=== PATIENT | female | born 1960 | race Two or more races ===

== ENCOUNTER 2019-09-25 11:41 | Emergency (ER) | payer OTHER, MEDICAID ==
[~2019-09-25] VITALS: Ht 162.6 cm; Wt 94.3 kg
[~2019-09-25 11:41] MED LIST: DULO30CA2 PO; FURO1TAB33 PO; HYDR50TA69 PO; LORA-622 PO; PREG150C PO; SIMV-8 PO
[2019-09-25 11:50] VITALS: BP 98/44
== END 2019-09-25 13:12 | disposition home or self-care (01) ==
LOC: ER 11:41
DX: S46.912A Strain of unspecified muscle, fascia and tendon at shoulder and upper arm level, left arm, initial encounter (principal); M19.012 Primary osteoarthritis, left shoulder; E11.9 Type 2 diabetes mellitus without complications; J44.9 Chronic obstructive pulmonary disease, unspecified; E78.5 Hyperlipidemia, unspecified; F17.210 Nicotine dependence, cigarettes, uncomplicated; Z79.899 Other long term (current) drug therapy; W01.0XXA Fall on same level from slipping, tripping and stumbling without subsequent striking against object, initial encounter; Y93.89 Activity, other specified; Y92.89 Other specified places as the place of occurrence of the external cause; Y99.8 Other external cause status
CPT/HCPCS: 73060; 73080

== ENCOUNTER 2022-10-01 10:26 | Emergency (ER) | payer OTHER, MEDICAID ==
[~2022-10-01] VITALS: Ht 160 cm; Wt 109.9 kg
[2022-10-01] MEDS ORDERED: SODIUM CHLORIDE 0.9% 1,000 ML IVB ONE (10:30)
[2022-10-01 11:04] LABS: Basophils # (auto) 0 10 ^3/uL (0-0.2); Basophils % (auto) 0.5 % (0.0-2.0); Eosinophils # (auto) 0.1 10 ^3/uL (0-0.8); Eosinophils % (auto) 1.4 % (0.0-7.0); Hematocrit 39.4 % (36.0-46.0); Hemoglobin 13.3 g/dL (12.2-16.2); Lymphocytes # (auto) 2.5 10 ^3/uL (0.4-5.4); Lymphocytes % (auto) 42.2 % (10.0-50.0); Mean Corpuscular Hemoglobin 32.5 pg (28.0-32.0); Mean Corpuscular Hgb Conc. 33.8 g/dL (32.0-36.0); Monocytes # (auto) 0.5 10 ^3/uL (0-1.3); Neutrophils # (auto) 2.7 10 ^3/uL (1.6-8.6); Neutrophils % (auto) 46.9 % (37.0-80.0); Nucleated Red Blood Cells % 0.1 %; Red Blood Cells 4.11 10^6/uL (4.0-5.20); Red Cell Distribution Width 14.8 % (11.8-14.3); White Blood Cell 5.8 10^3/uL (4.4-10.8)
[2022-10-01 13:11] LABS: Albumin 3.7 g/dL (3.4-5.0); Calcium 8.4 mg/dL (8.5-10.1); Magnesium 2.2 mg/dL (1.6-2.6); Potassium 3.5 mmol/L (3.5-5.1)
[2022-10-01 13:13] LABS: BUN/Creatinine Ratio 20.4 (10.0-20.0); Bilirubin, Total 0.3 mg/dL (0.2-1.0); Total Protein 6.8 g/dL (6.4-8.2)
[2022-10-01 14:03] LABS: Urine Bacteria NONE SEEN /hpf (None Seen); Urine Blood 1+ /uL (Negative); Urine Specific Gravity 1.007 (1.001-1.035); Urine WBC 5 /hpf (0 - 5)
[2022-10-01 14:31] VITALS: BP 127/76
[2022-10-01] MEDS ORDERED: CEPH-510 PO (15:07)
[2022-10-01] MEDS ORDERED: cefTRIAXone 1GM/50ML D5W 50 ML IV ONE (15:15)
== END 2022-10-01 15:59 | disposition home or self-care (01) ==
LOC: ER 10:26 → EDBD 10:26 → ER 15:59
DX: J01.00 Acute maxillary sinusitis, unspecified (principal); N39.0 Urinary tract infection, site not specified; F17.210 Nicotine dependence, cigarettes, uncomplicated; J44.9 Chronic obstructive pulmonary disease, unspecified; E11.9 Type 2 diabetes mellitus without complications; E78.5 Hyperlipidemia, unspecified; Z98.51 Tubal ligation status
CPT/HCPCS: 36415; 70450; 71045; 80053; 81001; 83605; 83735; 85025; 85379; 87040; 93005; 96365; 99285; J0696; J7030

== ENCOUNTER 2024-04-04 19:31 | Inpatient (IN) | payer OTHER, MEDICAID ==
[~2024-04-04] VITALS: Ht 160 cm; Wt 103.6 kg
[~2024-04-04 19:31] MED LIST changes: +CEPH-510 PO; -SIMV-8 PO; +SIMV20TA20 PO
--- NOTE | 2024-04-04 19:52 | ED.PDOC ---
SOB-HPI HPI Comments HPI: Poor Historian. 63 y.o female presents to the ED via EMS for a chief complaint of SOB that started 3 days ago. Patient reports using 2.5-3 liter of oxygen at home and was prescribed Z pack with today being her third day on medication but has no respiratory relief. Patient is on oxygen due to hx of COPD. EMS reports on scene, patient was saturating at 65-70% on room air, had been using her oxygen but during assessment, was not wearing it. Patient was given a breathing treatment, increasing SPO2 to 96-97% but will de-sat shortly after, was given another treatment and placed on 8 liters of oxygen, maintaining 100%. EMS mentions when taking patient off oxygen, patient drops in saturation but on oxygen is above the 90's. Initial blood pressure on scene: 110/54 with SPO2 65% RA and in route s/p breathing treatment blood pressure read 132/82 with SPO2 of 96%., Patient denies any allergies Vitals here. BP: 135/82 HR: 109 Temp: 98.5 F SpO2: 99% on 8 liters RR: 24 Past medical history: COPD with 2.5-3 liters of oxygen at home [place], neuropathy, sciatica arthritis, chronic back pain, CKD stage 3, and hyperlipidemia Past surgical history: Gastric sleeve and left oophorectomy. REVIEW OF SYSTEMS: CONSTITUTIONAL: Denies acute: fever, diaphoresis, chills, HEAD: Denies acute: headache, photophobia Eyes: Denies acute: Double vision, vision loss, eye pain, eye discharge. EARS: Denies acute: tinnitus, hearing loss, ear discharge, ear pain, THROAT: Denies acute: sore throat, swelling, difficulty swallowing , pain with swallowing, change in voice. NECK: Denies acute: neck pain, neck swelling, stiff neck. HEART: Denies acute : chest pain, palpitations, LUNGS: Denies acute: wheezing, cough, hemoptysis ABDOMEN: Denies acute: abdominal pain, Nausea, Vomiting, diarrhea, melena , hematemesis, hematochezia SKIN: Denies acute: rash, redness, lesions, itchiness. EXTREMITIES: Denies acute: calf pain, numbness, tingling, weakness, denies pain in extremity. Denies acute: Low back pain. Neuro: Denies acute: focal neurological deficit, motor or sensory focal neurological deficit, tremors, seizure like activity, confusion, dizziness, change in mental status, loss of bowel or bladder function, cauda equina like symptoms. : Denies acute: dysuria, hematuria, flank pain, increase in urinary frequency. PSYCH: Denies acute: hallucination, suicidal ideation, homicidal ideation. FEMALE: Denies acute: abnormal vaginal bleeding, foul odor, unusual discharge. PHYSICAL EXAM: General: mild acute distress, awake and alert. Head: normocephalic, atraumatic. Neck: supple, trachea is midline, no swelling. Throat: Normal phonation. Eyes:, no erythema, no purulent discharge, no proptosis, no icterus. Heart: regular rate, regular rhythm, no significant murmur appreciated. Lungs: no apparent respiratory distress, Able to speak in full sentences. Right-sided wheezing, no rhonchi, no crackles. No stridors Abdomen: non tender to palpation, non distended, soft, no guarding, no rebound, + bowel sounds. Obese. Neuro: Awake, Alert, oriented to name, self, situation, follows commands GCS=15. Speech is normal. Skin: no petechia, no purpura, no cyanosis, non-pale, not jaundice. Lower extremities: --no - Pitting edema no deformity, no focal swelling, no calf TTP. Makes eye contact. moves all four extremities. Face: no apparent facial droop. 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 Was a procedure done?: No Differential Dx Differential Diagnosis: Asthma, Bronchitis, COPD, Respiratory Distress, URI, Other (DDx include ACS, unstable angina, anxiety, PE, pneumothroax, neoplasm, cardiac ischemia, COPD, asthma, CHF, pleural effusion, tobacco abuse, pneumonia, hypoxia, hypercapnia, anemia., infection/sepsis., pulmonary edema. Asthma, Cardiac tamponade, infection.) X-Ray, Labs, Meds, VS Vital Signs Date Time Temp Pulse Resp B/P (MAP) Pulse Ox O2 Delivery O2 Flow Rate FiO2 04/04/24 19:44 94 04/04/24 19:35 98.5 109 26 135/82 (99) 99 04/04/24 19:35 26 99 Simple Mask* 8 60 Lab Test 04/04/24 20:53 04/04/24 20:00 04/04/24 02:00 Range/Units Troponin I High Sensitivity 19 20 </=34 ng/L White Blood Count 5.7 4.4-10.8 10^3/uL Red Blood Count 4.14 4.0-5.20 10^6/uL Hemoglobin 13.3 12.2-16.2 g/dL Hematocrit 40.0 36.0-46.0 % Mean Corpuscular Volume 96.7 80.0-100.0 fL Mean Corpuscular Hemoglobin 32.1 H 28.0-32.0 pg Mean Corpuscular Hemoglobin Concent 33.2 32.0-36.0 g/dL Red Cell Distribution Width 16.3 H 11.8-14.3 % Platelet Count 149 140-450 10^3/uL Mean Platelet Volume 7.6 6.9-10.8 fL Neutrophils (%) (Auto) 75.6 37.0-80.0 % Lymphocytes (%) (Auto) 16.8 10.0-50.0 % Monocytes (%) (Auto) 7.0 0.0-12.0 % Eosinophils (%) (Auto) 0.3 0.0-7.0 % Basophils (%) (Auto) 0.3 0.0-2.0 % Neutrophils # (Auto) 4.3 1.6-8.6 10 ^3/uL Lymphocytes # (Auto) 1.0 0.4-5.4 10 ^3/uL Monocytes # (Auto) 0.4 0-1.3 10 ^3/uL Eosinophils # (Auto) 0 0-0.8 10 ^3/uL Basophils # (Auto) 0 0-0.2 10 ^3/uL Nucleated Red Blood Cells 0.3 % Sodium Level 141 136-145 mmol/L Potassium Level 3.6 3.5-5.1 mmol/L Chloride Level 107 98-107 mmol/L Carbon Dioxide Level 28 20-31 mmol/L Anion Gap 6 5-15 Blood Urea Nitrogen 16 9-23 mg/dL Creatinine 0.99 0.550-1.02 mg/dL Glomerular Filtration Rate Calc 64 >90 mL/min BUN/Creatinine Ratio 16.2 10.0-20.0 Serum Glucose 122 H 74-106 mg/dL Lactic Acid Level 2.7 *H 0.4-2.0 mmol/L Calcium Level 9.6 8.7-10.4 mg/dL Magnesium Level 2.0 1.6-2.6 mg/dL Total Bilirubin 0.3 0.2-1.0 mg/dL Aspartate Amino Transferase (AST) 45 H 13-40 U/L Alanine Aminotransferase (ALT) 30 7-40 U/L Alkaline Phosphatase 103 46-116 U/L Total Protein 7.1 5.7-8.2 g/dL Albumin 4.6 3.2-4.8 g/dL B-Type Natriuretic Peptide 79.41 0-100 pg/mL Current Medications Medications (Trade) Dose Ordered Sig/Davey Route Start Time Stop Time Status Last Admin Methylprednisolone Sodium Succinate (Solu Medrol) 125 mg ONCE ONCE IV 04/04/24 19:45 04/04/24 19:46 DC 04/04/24 21:29 Time of 1ST Reevaluation: 19:42 Reevaluation 1ST: Unchanged Patient Education/Counseling: Diagnosis, Treatment Family Education/Counseling: No Family Present Comments Patient presented with the above HPI.--hypoxemia/dyspnea---workup was initiated. patient was found with the above mentioned diagnosis. Patient was given: DuoNeb treatment, Solu-Medrol, Decadron, supplemental oxygen Patient ED course and VS have been stabilized. Patient has been reassessed in the ED and remained in a stable condition. Pertinent incidental findings were discussed with the patient and/or family. Patient/family voices understanding and is agreeable with plan. Patient has been observed in the ED adequate length of time to insure improvement/stability. patient was admitted to the medicine team for further evaluation and treatment of their presentation. All the reports of any imaging studies that were ordered by myself were reviewed by myself. Departure 1 Departure Time of Disposition: 19:59 Impression: Primary Impression: COPD with exacerbation Additional Impressions: Hypoxemia Dyspnea Tobacco abuse Disposition: ADMITTED INPATIENT Admit to: Tele Condition: Guarded Discharged With: Self Critical Care Note Critical Care Time?: Yes (35 min-critical care time only) I personally scribed for RAYO NAYAK DO ([email or web address]) on 04/04/24 at 19:52. Electronically submitted by Dariana Castro ([facility]). I personally scribed for RAYO NAYAK DO ([email or web address]) on 04/04/24 at 20:03. Electronically submitted by Dariana Castro ([facility]). RAYO NAYAK DO Apr 04, 2024 19:52
[2024-04-04 20:17] LABS: Basophils # (auto) 0 10 ^3/uL (0-0.2); Basophils % (auto) 0.3 % (0.0-2.0); Eosinophils # (auto) 0 10 ^3/uL (0-0.8); Eosinophils % (auto) 0.3 % (0.0-7.0); Hemoglobin 13.3 g/dL (12.2-16.2); Lymphocytes % (auto) 16.8 % (10.0-50.0); Mean Corpuscular Hemoglobin 32.1 pg (28.0-32.0); Mean Corpuscular Hgb Conc. 33.2 g/dL (32.0-36.0); Mean Corpuscular Volume 96.7 fL (80.0-100.0); Monocytes # (auto) 0.4 10 ^3/uL (0-1.3); Neutrophils # (auto) 4.3 10 ^3/uL (1.6-8.6); Neutrophils % (auto) 75.6 % (37.0-80.0); Nucleated Red Blood Cells % 0.3 %; Platelet Count (auto) 149 10^3/uL (140-450); Red Blood Cells 4.14 10^6/uL (4.0-5.20); Red Cell Distribution Width 16.3 % (11.8-14.3); White Blood Cell 5.7 10^3/uL (4.4-10.8)
[2024-04-04 20:37] LABS: Alanine Aminotransferase 30 U/L (7-40); Albumin 4.6 g/dL (3.2-4.8); Alkaline Phosphatase 103 U/L (46-116); Anion Gap 6 (5-15); Aspartate Aminotransferase 45 U/L (13-40); BUN/Creatinine Ratio 16.2 (10.0-20.0); Bilirubin, Total 0.3 mg/dL (0.2-1.0); Blood Urea Nitrogen 16 mg/dL (9-23); Calcium 9.6 mg/dL (8.7-10.4); Carbon Dioxide 28 mmol/L (20-31); Chloride 107 mmol/L (98-107); Glucose 122 mg/dL (74-106); Potassium 3.6 mmol/L (3.5-5.1); Sodium 141 mmol/L (136-145); Total Protein 7.1 g/dL (5.7-8.2)
[2024-04-04 21:06] LABS: Lactic Acid w/Reflex 2.7 mmol/L (0.4-2.0)
[2024-04-04] MEDS: methylPREDNISolone SOD SUCC 125 MG/2 ML VL IV ONE (21:29)
[2024-04-04 22:00] VITALS: PULSE 90; RESP 16; O2SAT 93
[2024-04-04] MEDS ORDERED: ONDANSETRON HCL 4 MG/2 ML VIAL IV PRN (22:15)
[2024-04-04] MEDS ORDERED: NITROGLYCERIN 0.4 MG SL TAB SL PRN (22:15)
[2024-04-04] MEDS ORDERED: MORPHINE SULFATE INJ 2 MG/ml SYRG IV PRN (22:15)
--- NOTE | 2024-04-04 22:19 | DVH ---
CHEST RADIOGRAPH Indication: sob Technique: Single frontal view of the chest was obtained COMPARISON: XY CHEST PORTABLE on DOS: 10/01/22 FINDINGS: Lines and Tubes: None Lungs: Retrocardiac opacity may reflect atelectasis although superimposed pneumonia can not be exclud ed. Pleura: No effusion. No pneumothorax. Cardiomediastinal contours: Unremarkable Bones: Unremarkable IMPRESSION: 1. Retrocardiac opacity may reflect atelectasis although superimposed pneumonia can not be excluded.
[2024-04-04] MEDS: ALBUTEROL SULF 2.5 MG/0.5ML(0.5%) NEB SOLN NEB ONE (22:42)
[2024-04-04] MEDS: IPRATROPIUM BROM 0.5 MG/2.5ML INH SOL NEB ONE (22:42)
[2024-04-04 23:02] VITALS: BP 108/50; PULSE 96; O2SAT 92
[2024-04-04] MEDS: DexAMETHasone SOD PHOS 10MG/1ML VIAL INJ IV ONE (23:59)
[2024-04-04] MEDS: SODIUM CHLORIDE 0.9% 1,000 ML IV SCH (23:59)
[2024-04-05] VITALS (13 sets, daily range): BP systolic 124–149; BP diastolic 59–77; PULSE 73–99; RESP 16–22; TEMP 98–98.3; O2SAT 92–99
--- NOTE | 2024-04-05 02:38 | DVHHPRES ---
History of Present Illness Resident Creating Document: BRANDI BOOKER RESIDENT Reason for Visit: copd exacerbation History of Present Illness So this is a 63-year-old female patient with past medical history of COPD neuropathic pain, sciatica arthritis, chronic back pain, chronic kidney disease stage 3 and hyperlipidemia who presented to the hospital with shortness of breaths for the past 3 days. The patient denies any clear trigger for these episodes such as recent upper respiratory infection, fever, cough or other signs of infection. She reports being prescribed Z-Senthil 3 days ago today being the 3rd day. At baseline the patient uses 2.5-3 L of supplemental oxygen via nasal can nula at home. Upon EMS arrival the patient was found to have an oxygen saturation of 65-70% on room air. She was started on nebulized bronchodilator therapy which improved her oxygen saturation to 96 97% but she desaturated again shortly after the treatment. A 2nd nebulizer treatment was administered and the patient was placed on 8 L of supplemental oxygen, achieving an oxygen saturation of 100%. However upon removal from supplemental oxygen her saturations again dropped but remain in the low 90s while on oxygen therapy. The patient denies associated chest pain palpitation, fever, cough, or increased sputum production, she reports no recent infections or environmental exposures or travels. On arrival to the hospital her vital signs include a blood pressure of 110/54 mmHg and she was found to be alert and oriented. She continues to use nebulizer therapy and supplemental oxygen during the evaluation. He is an active smoker less than 1 pack a day ( longstanding history) denies using alcohol or illicit drugs use. Past Surgical History: None Smoke: <1 pack per day ALCOHOL: none Drugs: None Domestic Violence: Neg Review of Systems Review of Systems Constitutional: No: Fever, Chills, Sweats, Weakness, Malaise, Other Eyes: No: Pain, Vision change, Conjunctivae inflammation, Eyelid inflammation, Other, Redness ENT: No: Ear pain, Ear discharge, Nose pain, Nose discharge, Nose congestion, Mouth pain, Mouth swelling, Throat pain, Throat swelling, Other Respiratory: Shortness of breath, wheezing, no: Hemoptysis, Pleuritic Pain, Sputum, Wheezing, Other Cardiovascular: No: Chest Pain, Palpitations, Orthopnea, Paroxysmal Noc. Dyspnea, Edema, Lt Headedness, Other Gastrointestinal: No: Nausea, Vomiting, Abdominal Pain, Diarrhea, Constipation, Melena, Hematochezia, Other Musculoskeletal: No: other, neck pain, shoulder pain, arm pain, back pain, hand pain, leg pain, foot pain Neurological:; No: Weakness, Numbness, Incoordination, Change in speech, Confusion, Seizures Allergies: Coded Allergies: NO KNOWN ALLERGIES (Unverified , 09/04/13) Medications Current Medications Medications Dose Ordered Sig/Davey Route Start Time Stop Time Status Last Admin Dose Admin Sodium Chloride 1,000 ml @ 60 mls/hr [id number] IV 04/04/24 22:15 04/04/24 23:59 60 MLS/HR Ondansetron HCl 4 mg Q4HP PRN IV 04/04/24 22:15 Acetaminophen 650 mg Q6HP PRN PO 04/04/24 22:15 Morphine Sulfate 2 mg Q4HPRN PRN IV 04/04/24 22:15 Nitroglycerin 0.4 mg Q5MINP PRN SL 04/04/24 22:15 Morphine Sulfate 2 mg Q30M PRN IV 04/04/24 22:15 Exam Vital Signs Vital Signs Date Time Temp Pulse Resp B/P (MAP) Pulse Ox O2 Delivery O2 Flow Rate FiO2 04/05/24 02:16 90 22 124/60 95 40 04/05/24 01:43 Facial BiPAP Mask 04/04/24 22:39 6 04/04/24 19:35 98.5 Exam Examination General Appearance: Morbidly obese, Alert, Oriented X3, Cooperative, No acute distress HEENT: EOMI Respiratory: Wheezing, no rales, no crackles Cardiovascular: Regular rate, Normal S1, Normal S2 Abdominal: Normal bowel sounds Extremities: No cyanosis, No edema, Normal pulses, No tenderness/swelling Skin: No rashes, No breakdown Neuro: Normal tone, Sensation intact, Cranial nerves 3-12 NL, Reflexes 2+ Psych/Mental Status: Mental status NL, Mood NL Labs/Xrays Labs Test 04/05/24 00:17 04/04/24 22:28 04/04/24 22:04 04/04/24 20:53 Range/Units Blood Gas Specimen Type Arterial Blood Gas Sample Site Left radial Blood Gas Patient Temperature 37.0 Arterial Blood Date Drawn [id number] Arterial Blood pH 7.253 L 7.350-7.450 Arterial Blood Partial Pressure CO2 55.3 H 32.0-45.0 mmHg Arterial Blood Partial Pressure O2 57.4 L 83.0-108.0 mmHg Arterial Blood HCO3 23.9 21.0-28.0 mmol/L Arterial Blood Oxygen Saturation 87.5 L 94.0-98.0 % Arterial Blood Base Excess -4.0 L -2.0-3.0 mmol/L Arterial Blood Oxyhemoglobin 86.0 L 94.0-98.0 % Arterial Blood Carboxyhemoglobin 1.2 0.5-1.5 % Arterial Blood Methemoglobin 0.5 0.0-1.5 % Eliud Test Yes Blood Gas Total Hemoglobin 13.40 12.0-16.0 g/dL Blood Gas Set Respiration Rate 12.0 Blood Gas Modality Mask - bipap FiO2 % 30.0 Blood Gas EPAP 5 Blood Gas IPAP 12 Blood Gas Liter Flow 6.00 Lactic Acid Level 1.9 0.4-2.0 mmol/L Troponin I High Sensitivity 19 </=34 ng/L Test 04/04/24 20:00 04/04/24 02:00 Range/Units White Blood Count 5.7 4.4-10.8 10^3/uL Red Blood Count 4.14 4.0-5.20 10^6/uL Hemoglobin 13.3 12.2-16.2 g/dL Hematocrit 40.0 36.0-46.0 % Mean Corpuscular Volume 96.7 80.0-100.0 fL Mean Corpuscular Hemoglobin 32.1 H 28.0-32.0 pg Mean Corpuscular Hemoglobin Concent 33.2 32.0-36.0 g/dL Red Cell Distribution Width 16.3 H 11.8-14.3 % Platelet Count 149 140-450 10^3/uL Mean Platelet Volume 7.6 6.9-10.8 fL Neutrophils (%) (Auto) 75.6 37.0-80.0 % Lymphocytes (%) (Auto) 16.8 10.0-50.0 % Monocytes (%) (Auto) 7.0 0.0-12.0 % Eosinophils (%) (Auto) 0.3 0.0-7.0 % Basophils (%) (Auto) 0.3 0.0-2.0 % Neutrophils # (Auto) 4.3 1.6-8.6 10 ^3/uL Lymphocytes # (Auto) 1.0 0.4-5.4 10 ^3/uL Monocytes # (Auto) 0.4 0-1.3 10 ^3/uL Eosinophils # (Auto) 0 0-0.8 10 ^3/uL Basophils # (Auto) 0 0-0.2 10 ^3/uL Nucleated Red Blood Cells 0.3 % Sodium Level 141 136-145 mmol/L Potassium Level 3.6 3.5-5.1 mmol/L Chloride Level 107 98-107 mmol/L Carbon Dioxide Level 28 20-31 mmol/L Anion Gap 6 5-15 Blood Urea Nitrogen 16 9-23 mg/dL Creatinine 0.99 0.550-1.02 mg/dL Glomerular Filtration Rate Calc 64 >90 mL/min BUN/Creatinine Ratio 16.2 10.0-20.0 Serum Glucose 122 H 74-106 mg/dL Calcium Level 9.6 8.7-10.4 mg/dL Magnesium Level 2.0 1.6-2.6 mg/dL Total Bilirubin 0.3 0.2-1.0 mg/dL Aspartate Amino Transferase (AST) 45 H 13-40 U/L Alanine Aminotransferase (ALT) 30 7-40 U/L Alkaline Phosphatase 103 46-116 U/L Total Protein 7.1 5.7-8.2 g/dL Albumin 4.6 3.2-4.8 g/dL B-Type Natriuretic Peptide 79.41 0-100 pg/mL Assessment/Plan Assessment/Plan #Acute hypoxemic respiratory failure due to acute COPD exacerbation Likely triggered by environmental factors are non adherence to therapy, as no infectious etiology has been identified. -Lactic acid 2.7 -oxygen therapy, maintain oxygen saturation more than 90% using nasal cannula or high-flow oxygen as needed. -Continue albuterol and ipratropium nebulizations every 4-6 hours -Dexamethasone 20 mg IV -BiPAP -ABG #Chronic kidney disease stage 3 -Patient has patient has CKD and presents with a elevated lactic acid level 2.7 , possibly related to hypoxemic or underlying chronic illness. -monitor renal function -Avoid nephrotoxic medications (NSAIDs) -Reassess lactic acid after stabilizing oxygenation #Morbid obesity #Sleep apnea -Morbid obesity likely contributes to the patient's hypoventilation hypoxemia -Patient currently on BiPAP therapy #Hyperlipidemia and cardiovascular risk -Given history of hyperlipidemia and morbid obesity, and smoking, patient remains at high risk for cardiovascular events -continue statin therapy -Emphasizing smoking cessation #Neuropathic pain and sciatica arthritis -Continue home pain regimen -Evaluate physical therapy Case discussed with Dr. Zuñiga Goals of care discussed with the patient for 49 minutes Code status: Full code Plan discussed with: Patient My Orders Orders - BRANDI BOOKER Procedure Category Date Status Time Admit ADMIT 04/04/24 Transmitted 22:03 Allergies DODIE 04/04/24 In Process 22:03 Code Status CODE 04/04/24 Transmitted 22:03 2 Gm Sodium Diet DIET 04/05/24 Transmitted Breakfast Sodium Chloride 0.9% PHA 04/04/24 In Process 22:15 Oxygen Per Hour RT 04/04/24 Transmitted 22:03 Ondansetron Hcl PHA 04/04/24 In Process (Zofran) 22:15 Complete Blood Count LAB 04/05/24 Logged 04:00 Comprehensive LAB 04/05/24 Logged Metabolic Panel 04:00 Cardiac DIET 04/05/24 Transmitted Diet-2gna,Lofat,Lochol Breakfast Acetaminophen Tablet PHA 04/04/24 In Process (Tylenol Tablet) 22:15 Morphine Sulfate PHA 04/04/24 In Process Injection 22:15 Nitroglycerin PHA 04/04/24 In Process Sublingual (Ntrostat 22:15 Morphine Sulfate PHA 04/04/24 In Process Injection 22:15 Oxygen By Nasal RT 04/04/24 Transmitted Cannula 22:03 Stat Ekg For Chest DODIE 04/04/24 In Process Pain 22:03 Notify Md Of Changes DODIE 04/04/24 In Process From Base 22:03 Greenhouse Grower For DODIE 04/04/24 In Process 24 Hours 22:03 Emergency Dysrhythmia [facility] 04/04/24 In Process Protocol 22:03 Rhythm Strips Once [facility] 04/04/24 In Process Every Shift 22:03 Date of Service: Apr 04, 2024 Billing Provider: MARCO ANTONIO ZUÑIGA MD Common Visit Codes: [id number] INP/OBS CARE (HIGH) BRANDI BOOKER Apr 05, 2024 02:38 MARCO ANTONIO ZUÑIGA MD Apr 05, 2024 08:28
--- NOTE | 2024-04-05 07:00 | ECG ---
[facility] Test Date: 2024-04-04 Test Time: 19:44:05 Pat Name: SAMMY DEUTSCH Department: ED Room: 0296T Gender: F Color Specialist: CHRIS : 1960 Requested By: RAYO NAYAK Order Number: [id number] Reading MD: Joel Avilez Measurements Intervals [place] Rate: 94 P: 0 MS: 0 QRS: 36 QRSD: 89 T: 103 QT: 298 QTc: 373 Interpretive Statements Atrial flutter with predominant 3:1 AV block Anteroseptal infarct, old Electronically Signed On 04-08-2024 8:18:21 PST by Joel Avilez Please click the below link to view image of tracing.
[2024-04-05 07:01] LABS: Basophils # (auto) 0 10 ^3/uL (0-0.2); Basophils % (auto) 0.1 % (0.0-2.0); Eosinophils # (auto) 0 10 ^3/uL (0-0.8); Hematocrit 38.6 % (36.0-46.0); Hemoglobin 12.8 g/dL (12.2-16.2); Lymphocytes # (auto) 0.3 10 ^3/uL (0.4-5.4); Lymphocytes % (auto) 5.7 % (10.0-50.0); Mean Corpuscular Hemoglobin 31.8 pg (28.0-32.0); Mean Corpuscular Hgb Conc. 33.2 g/dL (32.0-36.0); Mean Corpuscular Volume 95.8 fL (80.0-100.0); Monocytes # (auto) 0.1 10 ^3/uL (0-1.3); Monocytes % (auto) 2.3 % (0.0-12.0); Neutrophils # (auto) 4.4 10 ^3/uL (1.6-8.6); Neutrophils % (auto) 91.9 % (37.0-80.0); Nucleated Red Blood Cells % 0.1 %; Platelet Count (auto) 136 10^3/uL (140-450); Red Blood Cells 4.03 10^6/uL (4.0-5.20); Red Cell Distribution Width 15.8 % (11.8-14.3); White Blood Cell 4.8 10^3/uL (4.4-10.8)
[2024-04-05 07:14] LABS: Alanine Aminotransferase 29 U/L (7-40); Albumin 4.5 g/dL (3.2-4.8); Alkaline Phosphatase 97 U/L (46-116); Anion Gap 8 (5-15); Aspartate Aminotransferase 46 U/L (13-40); BUN/Creatinine Ratio 18.8 (10.0-20.0); Blood Urea Nitrogen 15 mg/dL (9-23); Calcium 9.5 mg/dL (8.7-10.4); Carbon Dioxide 24 mmol/L (20-31); Chloride 108 mmol/L (98-107); Glucose 186 mg/dL (74-106); Potassium 4.2 mmol/L (3.5-5.1); Sodium 140 mmol/L (136-145)
[2024-04-05 07:15] LABS: Bilirubin, Total 0.3 mg/dL (0.2-1.0); Total Protein 6.7 g/dL (5.7-8.2)
[2024-04-05 07:28] LABS: Base Excess -4.5 mmol/L (-2.0-3.0)
[2024-04-05 08:38] LABS: COVID19 ANTIGEN SOFIA FIA NEGATIVE (NEGATIVE); Rapid Influenza A Negative (Negative); Rapid Influenza B Negative (Negative)
[2024-04-05] MEDS: cefTRIAXone 1GM/50ML D5W 50 ML IV SCH (09:49)
[2024-04-05] MEDS: IPRATROPIUM BROM 0.5 MG/2.5ML INH SOL NEB PRN (10:38)
[2024-04-05] MEDS: ALBUTEROL SULF 2.5 MG/0.5ML(0.5%) NEB SOLN NEB PRN (10:38)
[2024-04-05] MEDS: predniSONE 20 MG TAB PO ONE (10:52)
[2024-04-05] MEDS: AZITHROMYCIN 500MG/ 250ML 250 ML IV SCH (10:57)
[2024-04-05] MEDS: ACETAMINOPHEN 325 MG TAB PO PRN (13:20)
--- NOTE | 2024-04-05 13:57 | DVHPN2 ---
Reviewed: Care Plan, H&P, Labs, Medications, Previous Orders, Radiology Changes from previous H/P or p: No Changes Objective Vitals Vital Signs Date Time Temp Pulse Resp B/P (MAP) Pulse Ox O2 Delivery O2 Flow Rate FiO2 04/05/24 10:41 80 16 97 04/05/24 10:35 Nasal Cannula* 4 36 04/05/24 09:54 122/61 (81) 04/05/24 07:30 95.9 95.9 Intake/Output Intake and Output 04/05/24 07:00 Intake Total 60 ml Balance 60 ml Intake IV Total 60 ml Medications Current Medications Medications Dose Ordered Sig/Davey Route Start Time Stop Time Status Last Admin Dose Admin Sodium Chloride 1,000 ml @ 60 mls/hr [id number] IV 04/04/24 22:15 04/04/24 23:59 60 MLS/HR Ondansetron HCl 4 mg Q4HP PRN IV 04/04/24 22:15 Acetaminophen 650 mg Q6HP PRN PO 04/04/24 22:15 04/05/24 13:20 650 MG Morphine Sulfate 2 mg Q4HPRN PRN IV 04/04/24 22:15 Nitroglycerin 0.4 mg Q5MINP PRN SL 04/04/24 22:15 Morphine Sulfate 2 mg Q30M PRN IV 04/04/24 22:15 Atorvastatin Calcium 40 mg HS PO 04/05/24 22:00 Albuterol 2.5 mg Q4HPRN PRN NEB 04/05/24 08:45 04/05/24 10:38 2.5 MG Ipratropium [place] 0.5 mg Q4HPRN PRN NEB 04/05/24 08:45 04/05/24 10:38 0.5 MG Prednisone 40 mg DAILY PO 04/06/24 10:00 Ceftriaxone Sodium 50 ml @ 100 mls/hr DAILY@09 IV 04/05/24 09:00 04/05/24 09:49 100 MLS/HR Azithromycin 250 ml @ 125 mls/hr DAILY IV 04/05/24 10:00 04/05/24 10:57 125 MLS/HR Laboratory Results Laboratory Tests 04/05/24 06:36 Chemistry Test 04/04/24 20:00 04/05/24 06:36 Albumin 4.6 g/dL (3.2-4.8) 4.5 g/dL (3.2-4.8) Calcium Level 9.6 mg/dL (8.7-10.4) 9.5 mg/dL (8.7-10.4) Magnesium Level 2.0 mg/dL (1.6-2.6) Total Protein 7.1 g/dL (5.7-8.2) 6.7 g/dL (5.7-8.2) LFT Test 04/04/24 20:00 04/05/24 06:36 Alanine Aminotransferase (ALT) 30 U/L (7-40) 29 U/L (7-40) Alkaline Phosphatase 103 U/L (46-116) 97 U/L (46-116) Aspartate Amino Transferase (AST) 45 U/L (13-40) H 46 U/L (13-40) H Total Bilirubin 0.3 mg/dL (0.2-1.0) 0.3 mg/dL (0.2-1.0) Blood Gas Results Test 04/04/24 22:28 04/05/24 00:17 04/05/24 07:22 Arterial Blood pH 7.274 (7.350-7.450) 7.253 (7.350-7.450) 7.240 (7.350-7.450) FiO2 % 44.0 30.0 40.0 Labs and/or images reviewed: Labs reviewed by me, Image(s) reviewed by me Assessment/Plan Assessment/Plan Acute on chronic hypoxic respiratory failure: Oxygen by nasal cannula Acute COPD exacerbation: Albuterol Atrovent Possible community-acquired pneumonia: Rocephin azithromycin Solu-Medrol Chronic kidney disease stage 3 Morbid obesity Sleep apnea Hypercholesterolemia Neuropathic pain and sciatica Chronic back pain Chronic current smoker: Counseling Hypercholesterolemia Time spent 65 minutes Patient is full code Advanced care planning time 20 minutes Plan discussed with: Patient Date of Service: Apr 05, 2024 Billing Provider: DIVINA GOODMAN MD Common Visit Codes: [id number] CARE 30-74 MIN DIVINA GOODMAN MD Apr 05, 2024 13:57
[2024-04-05] MEDS: MORPHINE SULFATE INJ 2 MG/ml SYRG IV PRN (17:05)
--- NOTE | 2024-04-05 21:46 | DVHINCON2 ---
Date of service: Apr 05, [address] Christian Campbell Reason for Consultation Acute hypoxic respiratory failure and COPD exacerbation History of Present Illness A 63-year-old woman with PMHx of COPD, CKD stage 3, hyperlipidemia, arthritis, sciatica and chronic back pain who presented to ED on 04/04/24 with c/o shortness of breaths x 3 days. She denied recent URI, fever, cough or other signs of infection. Pt was prescribed Z-Senthil 3 days prior to presentation and was on 3rd day of antibiotic. At baseline is on 2.5-3 L of supplemental oxygen via nasal cannula at home. EMS had noted O2 sat of 65-70% on room air, improved to 96% and 97% on nebulized bronchodilator therapy but desaturated again shortly after treatment. A second nebulizer treatment along with O2 at 8 L brought up sats to 100%. Sats were noted to remain in the low 90s while on oxygen, but dropping off oxygen. Note, she is an active smoker of less than 1 pack a day ( longstanding history). Patient was admitted for further care and pulmonary consultation is requested for evaluation and management due to these findings. Review of Systems: 14-point review of systems negative unless otherwise noted above. Past Medical History: COPD, chronic kidney disease stage 3, hyperlipidemia, arthritis, sciatica and chronic back pain Past Surgical History: None. Medications: Reviewed. Allergies: No known drug allergies. Family History: No family history of premature CAD. No family history of lung disorders. Social History: Smoker. Smokes <1 pack per day No alcohol or illicit drug use. Family History: Family history: Hypertension Allergies: Coded Allergies: NO KNOWN ALLERGIES (Unverified , 09/04/13) Home Meds Active Scripts Cephalexin ( Keflex 500) 500 Mg Cap, 1 CAP PO QID for 7 Days, #30 CAP Prov:ALLYSSA GRAY MD 10/01/22 Reported Medications Atorvastatin Calcium (ATORVASTATIN CALCIUM) 40 Mg Tab, 1 TAB PO DAILY, #30 TAB 5 Refills 04/05/24 Oxycodone W/ Acetaminophen (Percocet 5/325MG) 1 Tab Tb, 1 TAB PO, #120 TAB 04/05/24 Pregabalin (Pregabalin) 75 Mg Cap, 1 CAP PO BID 04/05/24 Amitriptyline HCl (Amitriptyline Hydrochlori) 100 Mg Tab, 1 TAB PO DAILY 04/05/24 Duloxetine HCl (Duloxetine HCl) 60 Mg Cap, 1 CAP PO DAILY 04/05/24 Upadacitinib (Rinvoq) 15 Mg Tab, 1 TAB PO DAILY 04/05/24 Discontinued Reported Medications Furosemide (Lasix) 20 Mg Tb, 40 MG PO DAILY 12/07/15 Hydroxyzine Hcl (Hydroxyzine Hcl) 50 Mg Tab, 1 TAB PO TID, #90 TAB 2 Refills 07/06/15 Pregabalin (Lyrica) 150 Mg Cap, 1 CAP PO DAILY, #60 CAP 5 Refills 07/06/15 Simvastatin (Simvastatin) 20 Mg Tab, 1 TAB PO QPM, #30 TAB 5 Refills 07/06/15 Duloxetine Hcl (CYMBALTA CAPSULE) 30 Mg Cp, 1 CAP PO DAILY, #30 CAP 5 Refills 07/06/15 Loratadine (Claritin) 10 Mg Tab, 1 TAB PO DAILY, #30 TAB 5 Refills 07/06/15 Current Medications Current Medications Medications (Trade) Dose Ordered Sig/Davey Route PRN Reason Start Time Stop Time Status Last Admin Atorvastatin Calcium (Lipitor) 40 mg HS PO 04/05/24 22:00 Prednisone 40 mg DAILY PO 04/06/24 10:00 Enoxaparin Sodium (Lovenox) 40 mg DAILY SC 04/06/24 10:00 Vital Signs Vital Signs Date Time Temp Pulse Resp B/P (MAP) Pulse Ox O2 Delivery O2 Flow Rate FiO2 04/05/24 20:00 85 96 Oxymizer 4 N/A 04/05/24 20:00 20 04/05/24 19:50 98.3 140/67 (91) 98.3 Physical Exam Gen.: Patient lying in bed in no apparent distress. On supplemental oxygen. Head: Normocephalic, atraumatic. Eyes: EOMI/PERRLA. Ears: Normal hearing. Normal anatomy. Neck/trachea: Trachea midline, supple. Nose: Normal external anatomy. Mouth: Moist mucous membranes. Chest: Decreased air entry bilaterally. No wheezing or rhonchi. Cardiovascular: Positive S1, positive S2. Regular rate and rhythm. Abdomen: Positive bowel sounds in all 4 quadrants. Soft, non-tender, non- distended. : Deferred. Rectal: Deferred. Skin: Warm, dry. Intact. Extremities: 2+ radial pulses bilaterally. No lower extremity edema. Neuro: Awake, alert, oriented x3. No gross motor or sensory deficits. Cranial nerves II through XII intact. Gait not assessed. Labs/Diagnostic Data Labs Test 04/05/24 07:46 04/05/24 07:22 04/05/24 06:36 04/04/24 22:28 Range/Units Influenza Type A Antigen Negative Negative Influenza Type B Antigen Negative Negative SARS-CoV-2 Antigen (Rapid) Negative NEGATIVE Blood Gas Specimen Type Arterial Blood Gas Sample Site Right radial Blood Gas Patient Temperature 37.0 Arterial Blood Date Drawn Arterial Blood pH 7.240 *L 7.350-7.450 Arterial Blood Partial Pressure CO2 56.2 H 32.0-45.0 mmHg Arterial Blood Partial Pressure O2 70.0 L 83.0-108.0 mmHg Arterial Blood HCO3 23.5 21.0-28.0 mmol/L Arterial Blood Oxygen Saturation 92.2 L 94.0-98.0 % Arterial Blood Base Excess -4.5 L -2.0-3.0 mmol/L Arterial Blood Oxyhemoglobin 91.1 L 94.0-98.0 % Arterial Blood Carboxyhemoglobin 0.9 0.5-1.5 % Arterial Blood Methemoglobin 0.3 0.0-1.5 % Eliud Test Yes Blood Gas Total Hemoglobin 13.30 12.0-16.0 g/dL Blood Gas Set Respiration Rate 12.0 Blood Gas Modality Mask - bipap Blood Gas Spontaneous Rate 24 FiO2 % 40.0 Blood Gas EPAP 5 Blood Gas IPAP 12 Blood Gas Critical Value Read Back Yes Blood Gas Notified Whom Blood Gas Notified Time [id number] Blood Gas Notified By Daniella hamilton White Blood Count 4.8 4.4-10.8 10^3/uL Red Blood Count 4.03 4.0-5.20 10^6/uL Hemoglobin 12.8 12.2-16.2 g/dL Hematocrit 38.6 36.0-46.0 % Mean Corpuscular Volume 95.8 80.0-100.0 fL Mean Corpuscular Hemoglobin 31.8 28.0-32.0 pg Mean Corpuscular Hemoglobin Concent 33.2 32.0-36.0 g/dL Red Cell Distribution Width 15.8 H 11.8-14.3 % Platelet Count 136 L 140-450 10^3/uL Mean Platelet Volume 7.4 6.9-10.8 fL Neutrophils (%) (Auto) 91.9 H 37.0-80.0 % Lymphocytes (%) (Auto) 5.7 L 10.0-50.0 % Monocytes (%) (Auto) 2.3 0.0-12.0 % Eosinophils (%) (Auto) 0.0 0.0-7.0 % Basophils (%) (Auto) 0.1 0.0-2.0 % Neutrophils # (Auto) 4.4 1.6-8.6 10 ^3/uL Lymphocytes # (Auto) 0.3 L 0.4-5.4 10 ^3/uL Monocytes # (Auto) 0.1 0-1.3 10 ^3/uL Eosinophils # (Auto) 0 0-0.8 10 ^3/uL Basophils # (Auto) 0 0-0.2 10 ^3/uL Nucleated Red Blood Cells 0.1 % Sodium Level 140 136-145 mmol/L Potassium Level 4.2 3.5-5.1 mmol/L Chloride Level 108 H 98-107 mmol/L Carbon Dioxide Level 24 20-31 mmol/L Anion Gap 8 5-15 Blood Urea Nitrogen 15 9-23 mg/dL Creatinine 0.80 0.550-1.02 mg/dL Glomerular Filtration Rate Calc 82 >90 mL/min BUN/Creatinine Ratio 18.8 10.0-20.0 Serum Glucose 186 H 74-106 mg/dL Calcium Level 9.5 8.7-10.4 mg/dL Total Bilirubin 0.3 0.2-1.0 mg/dL Aspartate Amino Transferase (AST) 46 H 13-40 U/L Alanine Aminotransferase (ALT) 29 7-40 U/L Alkaline Phosphatase 97 46-116 U/L Total Protein 6.7 5.7-8.2 g/dL Albumin 4.5 3.2-4.8 g/dL Blood Gas Liter Flow 6.00 Test 04/04/24 22:04 04/04/24 20:53 04/04/24 20:00 04/04/24 02:00 Range/Units Lactic Acid Level 1.9 0.4-2.0 mmol/L Troponin I High Sensitivity 19 </=34 ng/L Magnesium Level 2.0 1.6-2.6 mg/dL B-Type Natriuretic Peptide 79.41 0-100 pg/mL Assessment Impression: Acute hypoxic respiratory failure COPD exacerbation Atelectasis Aute hypercarbic respiratory failure - pCO2 of 56.2 Lactic acidosis Morbid obesity Nicotine dependence Plan: Supplemental oxygen 4 LPM Oxymizer BiPAP PRN - IPAP 12, EPAP of 5. Titrate to keep O2 sats above 92%. Taper O2 as tolerated. Continue bronchodilators. Continue antibiotics Steroids Incentive spirometry Monitor renal function. Monitor electrolytes. Supplement as necessary. Monitor ins and outs. Active smoker, less than 1 pack a day - chronic hx of smoking Smoking cessation education given. Diet and lifestyle modifications for weight reduction Morbid obesity - complicates all care DVT prophylaxis - Lovenox. Prognosis: Poor given patient's multiple co-morbidities. Rest of plan per hospitalist and other consultants. Thank you Dr. Christian Campbell, for allowing me to participate in this patient's care. Further recommendations will depend on the patient's clinical course. Please do not hesitate to contact me if you have any questions or concerns. This medical document was created using an electronic medical record system with [employer] dictation system. Although these documentations are being carefully reviewed, there may still be some phonetic and typographical changes. The errors are purely typographical, due to imperfection on the software program, and do not reflect any compromise in the patient's medical care. Plan discussed with: Patient, Other (LUIS MANUEL Wilder MD) MICHELLE HOLM MD Apr 05, 2024 21:46
[2024-04-05] MEDS: ATORVASTATIN 20 MG TAB PO SCH (22:28)
[2024-04-05] MEDS ORDERED: UPAD15TA PO (22:32)
[2024-04-05] MEDS ORDERED: PREG75CA90 PO (22:32)
[2024-04-05] MEDS ORDERED: DULO1CAP6 PO (22:32)
[2024-04-05] MEDS ORDERED: AMIT100T75 PO (22:32)
[2024-04-05] MEDS ORDERED: PERCOT PO (22:32)
[2024-04-05] MEDS ORDERED: ATOR40TA52 PO (22:33)
[2024-04-06] VITALS (12 sets, daily range): BP systolic 119–151; BP diastolic 58–84; PULSE 75–93; RESP 17–20; TEMP 97.3–99; O2SAT 90–100
[2024-04-06] MEDS: ENOXAPARIN SOD 40 MG/0.4 ML SYRINGE SC SCH (11:16)
[2024-04-06] MEDS: predniSONE 20 MG TAB PO SCH (11:17)
--- NOTE | 2024-04-06 13:02 | DVHPN2 ---
Reviewed: Care Plan, H&P, Labs, Medications, Previous Orders, Radiology Changes from previous H/P or p: No Changes Objective Vitals Vital Signs Date Time Temp Pulse Resp B/P (MAP) Pulse Ox O2 Delivery O2 Flow Rate FiO2 04/06/24 12:01 99 Oxymizer 4.0 04/06/24 12:01 N/A 04/06/24 05:00 98.3 83 20 146/70 (95) 98.3 Intake/Output Intake and Output 04/06/24 07:00 Intake Total 825 ml Balance 825 ml Intake Oral 105 ml IV Total 720 ml # Voids 3 Medications Current Medications Medications Dose Ordered Sig/Davey Route Start Time Stop Time Status Last Admin Dose Admin Sodium Chloride 1,000 ml @ 60 mls/hr [id number] IV 04/04/24 22:15 04/05/24 21:00 60 MLS/HR Ondansetron HCl 4 mg Q4HP PRN IV 04/04/24 22:15 Acetaminophen 650 mg Q6HP PRN PO 04/04/24 22:15 04/05/24 13:20 650 MG Morphine Sulfate 2 mg Q4HPRN PRN IV 04/04/24 22:15 04/05/24 17:05 2 MG Nitroglycerin 0.4 mg Q5MINP PRN SL 04/04/24 22:15 Morphine Sulfate 2 mg Q30M PRN IV 04/04/24 22:15 Atorvastatin Calcium 40 mg HS PO 04/05/24 22:00 04/05/24 22:28 40 MG Albuterol 2.5 mg Q4HPRN PRN NEB 04/05/24 08:45 04/05/24 16:22 2.5 MG Ipratropium [place] 0.5 mg Q4HPRN PRN NEB 04/05/24 08:45 04/05/24 16:22 0.5 MG Prednisone 40 mg DAILY PO 04/06/24 10:00 04/06/24 11:17 40 MG Ceftriaxone Sodium 50 ml @ 100 mls/hr DAILY@09 IV 04/05/24 09:00 04/06/24 11:09 100 MLS/HR Azithromycin 250 ml @ 125 mls/hr DAILY IV 04/05/24 10:00 04/05/24 10:57 125 MLS/HR Enoxaparin Sodium 40 mg DAILY SC 04/06/24 10:00 04/06/24 11:16 40 MG Laboratory Results Laboratory Tests 04/05/24 06:36 Labs and/or images reviewed: Labs reviewed by me, Image(s) reviewed by me Assessment/Plan Assessment/Plan Acute on chronic hypoxic respiratory failure: Oxygen by nasal cannula Acute COPD exacerbation: Albuterol Atrovent Possible community-acquired pneumonia: Rocephin azithromycin Solu-Medrol History of intubation in the past Chronic kidney disease stage 3 Morbid obesity Sleep apnea Hypercholesterolemia Neuropathic pain and sciatica Chronic back pain Chronic current smoker: Counseling Hypercholesterolemia Time spent 65 minutes Patient is full code Advanced care planning time 20 minutes Plan discussed with: Patient My Orders Orders - DIVINA GOODMAN MD Procedure Category Date Status Time Bipap/Cpap For Sleep RT 04/05/24 Logged Apnea 09:00 Date of Service: Apr 06, 2024 Billing Provider: DIVINA GOODMAN MD Common Visit Codes: [id number] CARE 30-74 MIN DIVINA GOODMAN MD Apr 06, 2024 13:02
[2024-04-06] MEDS: OXYCODONE W/ ACETAMINOPHEN 5/325MG TABLET PO PRN (18:27)
[2024-04-06] MEDS: guaiFENesin-DM 100/10mg/5ml SYR PO PRN (18:28)
--- NOTE | 2024-04-06 23:10 | DVHPN2 ---
Progress Note - Dictate Date Seen: Apr 06, 2024 Medical Necessity Reason Pt with a Central, PICC or Fol: No Subjective Patient seen and examined at bedside. Remains on supplemental oxygen Overnight events reviewed. vital signs Vital Sign Date Time Temp Pulse Resp B/P (MAP) Pulse Ox O2 Delivery O2 Flow Rate FiO2 04/06/24 21:00 97.8 85 17 121/58 (79) 96 97.8 04/06/24 12:01 Oxymizer 4.0 04/06/24 12:01 N/A Total Intake and Output 04/05/24 04/05/24 04/06/24 15:00 23:00 07:00 Intake Total 720 ml 105 ml Balance 720 ml 105 ml medications Current Medications Medications Dose Ordered Sig/Davey Route Start Time Stop Time Status Last Admin Dose Admin Sodium Chloride 1,000 ml @ 60 mls/hr [id number] IV 04/04/24 22:15 04/05/24 21:00 60 MLS/HR Ondansetron HCl 4 mg Q4HP PRN IV 04/04/24 22:15 Acetaminophen 650 mg Q6HP PRN PO 04/04/24 22:15 04/05/24 13:20 650 MG Nitroglycerin 0.4 mg Q5MINP PRN SL 04/04/24 22:15 Atorvastatin Calcium 40 mg HS PO 04/05/24 22:00 04/06/24 22:34 40 MG Albuterol 2.5 mg Q4HPRN PRN NEB 04/05/24 08:45 04/05/24 16:22 2.5 MG Ipratropium [place] 0.5 mg Q4HPRN PRN NEB 04/05/24 08:45 04/05/24 16:22 0.5 MG Prednisone 40 mg DAILY PO 04/06/24 10:00 04/06/24 11:17 40 MG Ceftriaxone Sodium 50 ml @ 100 mls/hr DAILY@09 IV 04/05/24 09:00 04/06/24 11:09 100 MLS/HR Azithromycin 250 ml @ 125 mls/hr DAILY IV 04/05/24 10:00 04/06/24 13:54 125 MLS/HR Enoxaparin Sodium 40 mg DAILY SC 04/06/24 10:00 04/06/24 11:16 40 MG Oxycodone/ Acetaminophen 1 tab Q4HP PRN PO 04/06/24 13:15 04/06/24 18:27 1 TAB Guaifenesin/ Dextromethorphan 10 ml Q4HP PRN PO 04/06/24 13:15 04/06/24 18:28 10 ML objective Gen.: Patient lying in bed in no apparent distress. On supplemental oxygen. Head: Normocephalic, atraumatic. Eyes: EOMI/PERRLA. Ears: Normal hearing. Normal anatomy. Neck/trachea: Trachea midline, supple. Nose: Normal external anatomy. Mouth: Moist mucous membranes. Chest: Decreased air entry bilaterally. No wheezing or rhonchi. Cardiovascular: Positive S1, positive S2. Regular rate and rhythm. Abdomen: Positive bowel sounds in all 4 quadrants. Soft, non-tender, non- distended. : Deferred. Rectal: Deferred. Skin: Warm, dry. Intact. Extremities: 2+ radial pulses bilaterally. No lower extremity edema. Neuro: Awake, alert, oriented x3. No gross motor or sensory deficits. Cranial nerves II through XII intact. Gait not assessed. laboratory and microbiology Laboratory Tests 04/05/24 06:36 Test 04/05/24 06:36 Range/Units Serum Glucose 186 H 74-106 mg/dL Assessment/Plan Impression: Acute hypoxic respiratory failure COPD exacerbation Atelectasis Acute hypercarbic respiratory failure - pCO2 of 56.2 Lactic acidosis Morbid obesity Nicotine dependence Events: Remains on supplemental oxygen, 4 LPM Oxymizer Taper O2 as tolerated ABG obtained this AM - elevated pCO2. Patient was placed on BiPAP - became claustrophobic. Continue bronchodilators Continue steroids - prednisone course. Continue antibiotics Incentive spirometry Antitussive PRN DVT prophylaxis - Lovenox. Labs and imaging reviewed. Rest of plan as noted below. Plan: Supplemental oxygen 4 LPM Oxymizer Titrate to keep O2 sats above 92%. Taper O2 as tolerated. Continue bronchodilators. Continue antibiotics Steroids Incentive spirometry Monitor renal function. Monitor electrolytes. Supplement as necessary. Monitor ins and outs. Active smoker, less than 1 pack a day - chronic hx of smoking Smoking cessation education given. Diet and lifestyle modifications for weight reduction Morbid obesity - complicates all care DVT prophylaxis - Lovenox. Prognosis: Poor given patient's multiple co-morbidities. Rest of plan per hospitalist and other consultants. Thank you Dr. Christian Campbell, for allowing me to participate in this patient's care. Further recommendations will depend on the patient's clinical course. Please do not hesitate to contact me if you have any questions or concerns. This medical document was created using an electronic medical record system with [employer] dictation system. Although these documentations are being carefully reviewed, there may still be some phonetic and typographical changes. The errors are purely typographical, due to imperfection on the software program, and do not reflect any compromise in the patient's medical care. Plan discussed with: Patient, Other (RN) MICHELLE HOLM MD Apr 06, 2024 23:10
[2024-04-07] VITALS (15 sets, daily range): BP systolic 116–146; BP diastolic 47–99; PULSE 82–98; RESP 16–24; TEMP 97.6–98.3; O2SAT 89–98
--- NOTE | 2024-04-07 12:30 | DVHPN2 ---
Reviewed: Care Plan, H&P, Labs, Medications, Previous Orders, Radiology Changes from previous H/P or p: No Changes Objective Vitals Vital Signs Date Time Temp Pulse Resp B/P (MAP) Pulse Ox O2 Delivery O2 Flow Rate FiO2 04/07/24 11:10 88 20 98 04/07/24 11:03 Oxymizer 4.0 04/07/24 11:03 N/A 04/07/24 09:07 97.6 125/56 (79) 97.6 Intake/Output Intake and Output 04/07/24 07:00 Intake Total 3300 ml Output Total 800 ml Balance 2500 ml Intake Oral 2000 ml IV Total 1300 ml Output Urine Total 800 ml # Voids 3 # Bowel Movements 1 Medications Current Medications Medications Dose Ordered Sig/Davey Route Start Time Stop Time Status Last Admin Dose Admin Sodium Chloride 1,000 ml @ 60 mls/hr [id number] IV 04/04/24 22:15 04/07/24 01:31 60 MLS/HR Ondansetron HCl 4 mg Q4HP PRN IV 04/04/24 22:15 Acetaminophen 650 mg Q6HP PRN PO 04/04/24 22:15 04/05/24 13:20 650 MG Nitroglycerin 0.4 mg Q5MINP PRN SL 04/04/24 22:15 Atorvastatin Calcium 40 mg HS PO 04/05/24 22:00 04/06/24 22:34 40 MG Albuterol 2.5 mg Q4HPRN PRN NEB 04/05/24 08:45 04/07/24 11:01 2.5 MG Ipratropium [place] 0.5 mg Q4HPRN PRN NEB 04/05/24 08:45 04/07/24 11:01 0.5 MG Prednisone 40 mg DAILY PO 04/06/24 10:00 04/07/24 09:59 40 MG Ceftriaxone Sodium 50 ml @ 100 mls/hr DAILY@09 IV 04/05/24 09:00 04/07/24 08:15 100 MLS/HR Azithromycin 250 ml @ 125 mls/hr DAILY IV 04/05/24 10:00 04/07/24 09:58 125 MLS/HR Enoxaparin Sodium 40 mg DAILY SC 04/06/24 10:00 04/07/24 09:59 40 MG Oxycodone/ Acetaminophen 1 tab Q4HP PRN PO 04/06/24 13:15 04/07/24 01:35 1 TAB Guaifenesin/ Dextromethorphan 10 ml Q4HP PRN PO 04/06/24 13:15 04/06/24 18:28 10 ML Laboratory Results Laboratory Tests 04/05/24 06:36 Labs and/or images reviewed: Labs reviewed by me, Image(s) reviewed by me Assessment/Plan Assessment/Plan Acute on chronic hypoxic respiratory failure: Oxygen by nasal cannula Acute COPD exacerbation: Albuterol Atrovent Use of home oxygen 3 liters/minute History of psoriasis under the treatment of Dr. Tello Wheeler Possible community-acquired pneumonia: Rocephin azithromycin Solu-Medrol History of intubation in the past Chronic kidney disease stage 3 Morbid obesity Sleep apnea Hypercholesterolemia Neuropathic pain and sciatica Chronic back pain Chronic current smoker: Counseling Hypercholesterolemia Time spent 55 minutes Patient is full code Plan discussed with: Patient My Orders Orders - DIVINA GOODMAN MD Procedure Category Date Status Time Oxycodone W/ Acet PHA 04/06/24 In Process 5/325mg Tab (Percocet 13:15 Guaifenesin-Dextromet PHA 04/06/24 In Process Liquid (Robitussin 13:15 Date of Service: Apr 07, 2024 Billing Provider: DIVINA GOODMAN MD Common Visit Codes: [id number] INP/OBS CARE(HIGH) DIVINA GOODMAN MD Apr 07, 2024 12:30
--- NOTE | 2024-04-07 19:12 | DVHPN2 ---
Progress Note - Dictate Date Seen: Apr 07, 2024 Medical Necessity Reason Pt with a Central, PICC or Fol: No Subjective Patient seen and examined at bedside. Remains on supplemental oxygen Overnight events reviewed. vital signs Vital Sign Date Time Temp Pulse Resp B/P (MAP) Pulse Ox O2 Delivery O2 Flow Rate FiO2 04/07/24 16:39 97.7 86 16 132/65 (87) 92 97.7 04/07/24 11:03 Oxymizer 4.0 04/07/24 11:03 N/A Total Intake and Output 04/06/24 04/06/24 04/07/24 15:00 23:00 07:00 Intake Total 50 ml 1650 ml 1600 ml Output Total 800 ml Balance 50 ml 1650 ml 800 ml medications Current Medications Medications Dose Ordered Sig/Davey Route Start Time Stop Time Status Last Admin Dose Admin Sodium Chloride 1,000 ml @ 60 mls/hr [id number] IV 04/04/24 22:15 04/07/24 01:31 60 MLS/HR Ondansetron HCl 4 mg Q4HP PRN IV 04/04/24 22:15 Acetaminophen 650 mg Q6HP PRN PO 04/04/24 22:15 04/05/24 13:20 650 MG Nitroglycerin 0.4 mg Q5MINP PRN SL 04/04/24 22:15 Atorvastatin Calcium 40 mg HS PO 04/05/24 22:00 04/06/24 22:34 40 MG Albuterol 2.5 mg Q4HPRN PRN NEB 04/05/24 08:45 04/07/24 11:01 2.5 MG Ipratropium [place] 0.5 mg Q4HPRN PRN NEB 04/05/24 08:45 04/07/24 11:01 0.5 MG Prednisone 40 mg DAILY PO 04/06/24 10:00 04/07/24 09:59 40 MG Ceftriaxone Sodium 50 ml @ 100 mls/hr DAILY@09 IV 04/05/24 09:00 04/07/24 08:15 100 MLS/HR Azithromycin 250 ml @ 125 mls/hr DAILY IV 04/05/24 10:00 04/07/24 09:58 125 MLS/HR Enoxaparin Sodium 40 mg DAILY SC 04/06/24 10:00 04/07/24 09:59 40 MG Oxycodone/ Acetaminophen 1 tab Q4HP PRN PO 04/06/24 13:15 04/07/24 01:35 1 TAB Guaifenesin/ Dextromethorphan 10 ml Q4HP PRN PO 04/06/24 13:15 04/06/24 18:28 10 ML objective Gen.: Patient lying in bed in no apparent distress. On supplemental oxygen. Head: Normocephalic, atraumatic. Eyes: EOMI/PERRLA. Ears: Normal hearing. Normal anatomy. Neck/trachea: Trachea midline, supple. Nose: Normal external anatomy. Mouth: Moist mucous membranes. Chest: Decreased air entry bilaterally. No wheezing or rhonchi. Cardiovascular: Positive S1, positive S2. Regular rate and rhythm. Abdomen: Positive bowel sounds in all 4 quadrants. Soft, non-tender, non- distended. : Deferred. Rectal: Deferred. Skin: Warm, dry. Intact. Extremities: 2+ radial pulses bilaterally. No lower extremity edema. Neuro: Awake, alert, oriented x3. No gross motor or sensory deficits. Cranial nerves II through XII intact. Gait not assessed. laboratory and microbiology Laboratory Tests 04/05/24 06:36 Test 04/05/24 06:36 Range/Units Serum Glucose 186 H 74-106 mg/dL Assessment/Plan Impression: Acute hypoxic respiratory failure COPD exacerbation Atelectasis Acute hypercarbic respiratory failure - pCO2 of 56.2 Lactic acidosis Morbid obesity Nicotine dependence Events: Remains on supplemental oxygen, 4 LPM Oxymizer Taper O2 as tolerated Continue bronchodilators Continue steroids - prednisone course. Pulmicort BID Continue antibiotics Incentive spirometry Antitussive PRN DVT prophylaxis - Lovenox. Labs and imaging reviewed. Rest of plan as noted below. Plan: Supplemental oxygen 4 LPM Oxymizer Titrate to keep O2 sats above 92%. Taper O2 as tolerated. Continue bronchodilators. Continue antibiotics Steroids Incentive spirometry Monitor renal function. Monitor electrolytes. Supplement as necessary. Monitor ins and outs. Active smoker, less than 1 pack a day - chronic hx of smoking Smoking cessation education given. Diet and lifestyle modifications for weight reduction Morbid obesity - complicates all care DVT prophylaxis - Lovenox. Prognosis: Poor given patient's multiple co-morbidities. Rest of plan per hospitalist and other consultants. Thank you Dr. Christian Campbell, for allowing me to participate in this patient's care. Further recommendations will depend on the patient's clinical course. Please do not hesitate to contact me if you have any questions or concerns. This medical document was created using an electronic medical record system with [employer] dictation system. Although these documentations are being carefully reviewed, there may still be some phonetic and typographical changes. The errors are purely typographical, due to imperfection on the software program, and do not reflect any compromise in the patient's medical care. Plan discussed with: Patient, Other (LUIS MANUEL Ponce) MICHELLE HOLM MD Apr 07, 2024 19:12
[2024-04-08] VITALS (11 sets, daily range): BP systolic 124–155; BP diastolic 66–105; PULSE 72–88; RESP 18–20; TEMP 97.7–98.3; O2SAT 90–97
--- NOTE | 2024-04-08 12:32 | DVHPN2 ---
Reviewed: Care Plan, H&P, Labs, Medications, Previous Orders, Radiology Changes from previous H/P or p: No Changes Objective Vitals Vital Signs Date Time Temp Pulse Resp B/P (MAP) Pulse Ox O2 Delivery O2 Flow Rate FiO2 04/08/24 08:05 Oxymizer 4 N/A 04/08/24 07:08 97 04/08/24 05:00 97.9 72 131/105 (114) 97.9 04/08/24 01:00 20 Intake/Output Intake and Output 04/08/24 07:00 Intake Total 1580 ml Output Total 500 ml Balance 1080 ml Intake Oral 1280 ml IV Total 300 ml Output Urine Total 500 ml # Voids 3 Medications Current Medications Medications Dose Ordered Sig/Davey Route Start Time Stop Time Status Last Admin Dose Admin Sodium Chloride 1,000 ml @ 60 mls/hr [id number] IV 04/04/24 22:15 04/07/24 01:31 60 MLS/HR Ondansetron HCl 4 mg Q4HP PRN IV 04/04/24 22:15 Acetaminophen 650 mg Q6HP PRN PO 04/04/24 22:15 04/05/24 13:20 650 MG Nitroglycerin 0.4 mg Q5MINP PRN SL 04/04/24 22:15 Atorvastatin Calcium 40 mg HS PO 04/05/24 22:00 04/07/24 21:04 40 MG Albuterol 2.5 mg Q4HPRN PRN NEB 04/05/24 08:45 04/07/24 11:01 2.5 MG Ipratropium [place] 0.5 mg Q4HPRN PRN NEB 04/05/24 08:45 04/07/24 11:01 0.5 MG Prednisone 40 mg DAILY PO 04/06/24 10:00 04/08/24 09:14 40 MG Ceftriaxone Sodium 50 ml @ 100 mls/hr DAILY@09 IV 04/05/24 09:00 04/08/24 08:06 100 MLS/HR Azithromycin 250 ml @ 125 mls/hr DAILY IV 04/05/24 10:00 04/08/24 09:08 125 MLS/HR Enoxaparin Sodium 40 mg DAILY SC 04/06/24 10:00 04/08/24 09:13 40 MG Oxycodone/ Acetaminophen 1 tab Q4HP PRN PO 04/06/24 13:15 04/07/24 21:06 1 TAB Guaifenesin/ Dextromethorphan 10 ml Q4HP PRN PO 04/06/24 13:15 04/08/24 09:15 10 ML Laboratory Results Laboratory Tests 04/05/24 06:36 Labs and/or images reviewed: Labs reviewed by me, Image(s) reviewed by me Assessment/Plan Assessment/Plan Acute on chronic hypoxic respiratory failure: Oxygen by nasal cannula Acute COPD exacerbation: Albuterol Atrovent Use of home oxygen 3 liters/minute History of psoriasis under the treatment of Dr. Tello Wheeler Possible community-acquired pneumonia: Rocephin azithromycin Solu-Medrol History of intubation in the past Chronic kidney disease stage 3 Morbid obesity Sleep apnea Hypercholesterolemia Neuropathic pain and sciatica Chronic back pain Chronic current smoker: Counseling Hypercholesterolemia Time spent 55 minutes Patient is full code May DC tomorrow Plan discussed with: Patient Date of Service: Apr 08, 2024 Billing Provider: DIVINA GOODMAN MD Common Visit Codes: [id number] INP/OBS CARE(HIGH) DIVINA GOODMAN MD Apr 08, 2024 12:32
--- NOTE | 2024-04-08 21:21 | DVHPN2 ---
Progress Note - Dictate Date Seen: Apr 08, 2024 Medical Necessity Reason Pt with a Central, PICC or Fol: No Subjective Patient seen and examined at bedside. Remains on supplemental oxygen Overnight events reviewed. vital signs Vital Sign Date Time Temp Pulse Resp B/P (MAP) Pulse Ox O2 Delivery O2 Flow Rate FiO2 04/08/24 18:41 84 20 96 04/08/24 18:32 Oxymizer 4.0 04/08/24 18:32 N/A 04/08/24 17:00 97.8 147/89 (108) 97.8 Total Intake and Output 04/07/24 04/07/24 04/08/24 15:00 23:00 07:00 Intake Total 300 ml 780 ml 500 ml Output Total 500 ml Balance 300 ml 780 ml 0 ml medications Current Medications Medications Dose Ordered Sig/Davey Route Start Time Stop Time Status Last Admin Dose Admin Ondansetron HCl 4 mg Q4HP PRN IV 04/04/24 22:15 Acetaminophen 650 mg Q6HP PRN PO 04/04/24 22:15 04/05/24 13:20 650 MG Nitroglycerin 0.4 mg Q5MINP PRN SL 04/04/24 22:15 Atorvastatin Calcium 40 mg HS PO 04/05/24 22:00 04/08/24 21:09 40 MG Albuterol 2.5 mg Q4HPRN PRN NEB 04/05/24 08:45 04/08/24 18:31 2.5 MG Ipratropium [place] 0.5 mg Q4HPRN PRN NEB 04/05/24 08:45 04/08/24 18:31 0.5 MG Prednisone 40 mg DAILY PO 04/06/24 10:00 04/08/24 09:14 40 MG Ceftriaxone Sodium 50 ml @ 100 mls/hr DAILY@09 IV 04/05/24 09:00 04/08/24 08:06 100 MLS/HR Azithromycin 250 ml @ 125 mls/hr DAILY IV 04/05/24 10:00 04/08/24 09:08 125 MLS/HR Enoxaparin Sodium 40 mg DAILY SC 04/06/24 10:00 04/08/24 09:13 40 MG Oxycodone/ Acetaminophen 1 tab Q4HP PRN PO 04/06/24 13:15 04/08/24 21:16 1 TAB Guaifenesin/ Dextromethorphan 10 ml Q4HP PRN PO 04/06/24 13:15 04/08/24 21:16 10 ML objective Gen.: Patient lying in bed in no apparent distress. On supplemental oxygen. Head: Normocephalic, atraumatic. Eyes: EOMI/PERRLA. Ears: Normal hearing. Normal anatomy. Neck/trachea: Trachea midline, supple. Nose: Normal external anatomy. Mouth: Moist mucous membranes. Chest: Decreased air entry bilaterally. No wheezing or rhonchi. Cardiovascular: Positive S1, positive S2. Regular rate and rhythm. Abdomen: Positive bowel sounds in all 4 quadrants. Soft, non-tender, non- distended. : Deferred. Rectal: Deferred. Skin: Warm, dry. Intact. Extremities: 2+ radial pulses bilaterally. No lower extremity edema. Neuro: Awake, alert, oriented x3. No gross motor or sensory deficits. Cranial nerves II through XII intact. Gait not assessed. laboratory and microbiology Laboratory Tests 04/05/24 06:36 Test 04/05/24 06:36 Range/Units Serum Glucose 186 H 74-106 mg/dL Assessment/Plan Impression: Acute hypoxic respiratory failure COPD exacerbation Atelectasis Acute hypercarbic respiratory failure - pCO2 of 56.2 Lactic acidosis Morbid obesity Nicotine dependence Events: Patient had difficulty breathing On supplemental oxygen, 4 LPM NC Taper O2 as tolerated Continue bronchodilators Continue steroids - prednisone course. Continue antibiotics Incentive spirometry Antitussive PRN Monitor overnight - reassess for discharge in the AM. Labs and imaging reviewed. Rest of plan as noted below. Plan: Supplemental oxygen Titrate to keep O2 sats above 92%. Continue bronchodilators. Continue antibiotics Steroids Incentive spirometry Monitor renal function. Monitor electrolytes. Supplement as necessary. Monitor ins and outs. Active smoker, less than 1 pack a day - chronic hx of smoking Smoking cessation education given. Diet and lifestyle modifications for weight reduction Morbid obesity - complicates all care DVT prophylaxis - Lovenox. Prognosis: Poor given patient's multiple co-morbidities. Rest of plan per hospitalist and other consultants. Thank you Dr. Christian Campbell, for allowing me to participate in this patient's care. Further recommendations will depend on the patient's clinical course. Please do not hesitate to contact me if you have any questions or concerns. This medical document was created using an electronic medical record system with Dragon computerized dictation system. Although these documentations are being carefully reviewed, there may still be some phonetic and typographical changes. The errors are purely typographical, due to imperfection on the software program, and do not reflect any compromise in the patient's medical care. Plan discussed with: Patient, Other (LUIS MANUEL Ponce) MICHELLE HOLM MD Apr 08, 2024 21:21
[2024-04-09] VITALS (8 sets, daily range): BP systolic 107–154; BP diastolic 66–86; PULSE 79–85; RESP 17–20; TEMP 36.6; O2SAT 92–97
[2024-04-09] MEDS ORDERED: PRED20TA2 PO (12:48)
[2024-04-09] MEDS ORDERED: AZIT500T66 PO (12:48)
--- NOTE | 2024-04-09 12:54 | DVHDS2 ---
Discharge Summary Date of Admission Apr 04, 2024 at 22:03 Date of Discharge: Apr 09, 2024 Admitting Diagnosis Shortness of breaths Wounds: None Labs/Diagnostic Data: Laboratory Results Test 04/05/24 07:46 04/05/24 07:22 04/05/24 06:36 04/04/24 22:28 Influenza Type A Antigen Negative (Negative) Influenza Type B Antigen Negative (Negative) SARS-CoV-2 Antigen (Rapid) Negative (NEGATIVE) Blood Gas Specimen Type Arterial Blood Gas Sample Site Right radial Blood Gas Patient Temperature 37.0 Arterial Blood Date Drawn [id number] Arterial Blood pH 7.240 (7.350-7.450) Arterial Blood Partial Pressure CO2 56.2 mmHg (32.0-45.0) Arterial Blood Partial Pressure O2 70.0 mmHg (83.0-108.0) Arterial Blood HCO3 23.5 mmol/L (21.0-28.0) Arterial Blood Oxygen Saturation 92.2 % (94.0-98.0) Arterial Blood Base Excess -4.5 mmol/L (-2.0-3.0) Arterial Blood Oxyhemoglobin 91.1 % (94.0-98.0) Arterial Blood Carboxyhemoglobin 0.9 % (0.5-1.5) Arterial Blood Methemoglobin 0.3 % (0.0-1.5) Eliud Test Yes Blood Gas Total Hemoglobin 13.30 g/dL (12.0-16.0) Blood Gas Set Respiration Rate 12.0 Blood Gas Modality Mask - bipap Blood Gas Spontaneous Rate 24 FiO2 % 40.0 Blood Gas EPAP 5 Blood Gas IPAP 12 Blood Gas Critical Value Read Back Yes Blood Gas Notified Whom Blood Gas Notified Time [id number] Blood Gas Notified By Daniella hamilton White Blood Count 4.8 10^3/uL (4.4-10.8) Red Blood Count 4.03 10^6/uL (4.0-5.20) Hemoglobin 12.8 g/dL (12.2-16.2) Hematocrit 38.6 % (36.0-46.0) Mean Corpuscular Volume 95.8 fL (80.0-100.0) Mean Corpuscular Hemoglobin 31.8 pg (28.0-32.0) Mean Corpuscular Hemoglobin Concent 33.2 g/dL (32.0-36.0) Red Cell Distribution Width 15.8 % (11.8-14.3) Platelet Count 136 10^3/uL (140-450) Mean Platelet Volume 7.4 fL (6.9-10.8) Neutrophils (%) (Auto) 91.9 % (37.0-80.0) Lymphocytes (%) (Auto) 5.7 % (10.0-50.0) Monocytes (%) (Auto) 2.3 % (0.0-12.0) Eosinophils (%) (Auto) 0.0 % (0.0-7.0) Basophils (%) (Auto) 0.1 % (0.0-2.0) Neutrophils # (Auto) 4.4 10 ^3/uL (1.6-8.6) Lymphocytes # (Auto) 0.3 10 ^3/uL (0.4-5.4) Monocytes # (Auto) 0.1 10 ^3/uL (0-1.3) Eosinophils # (Auto) 0 10 ^3/uL (0-0.8) Basophils # (Auto) 0 10 ^3/uL (0-0.2) Nucleated Red Blood Cells 0.1 % Sodium Level 140 mmol/L (136-145) Potassium Level 4.2 mmol/L (3.5-5.1) Chloride Level 108 mmol/L (98-107) Carbon Dioxide Level 24 mmol/L (20-31) Anion Gap 8 (5-15) Blood Urea Nitrogen 15 mg/dL (9-23) Creatinine 0.80 mg/dL (0.550-1.02) Glomerular Filtration Rate Calc 82 mL/min (>90) BUN/Creatinine Ratio 18.8 (10.0-20.0) Serum Glucose 186 mg/dL (74-106) Calcium Level 9.5 mg/dL (8.7-10.4) Total Bilirubin 0.3 mg/dL (0.2-1.0) Aspartate Amino Transferase (AST) 46 U/L (13-40) Alanine Aminotransferase (ALT) 29 U/L (7-40) Alkaline Phosphatase 97 U/L (46-116) Total Protein 6.7 g/dL (5.7-8.2) Albumin 4.5 g/dL (3.2-4.8) Blood Gas Liter Flow 6.00 Test 04/04/24 22:04 04/04/24 20:53 04/04/24 20:00 04/04/24 02:00 Lactic Acid Level 1.9 mmol/L (0.4-2.0) Troponin I High Sensitivity 19 ng/L (</=34) Magnesium Level 2.0 mg/dL (1.6-2.6) B-Type Natriuretic Peptide 79.41 pg/mL (0-100) Other Laboratory Tests 04/05/24 06:36 Brief Hx & Hospital Course: 63-year-old female with COPD on home oxygen came in for worsening shortness of breath found to have acute COPD exacerbation treated with albuterol Atrovent and Solu-Medrol possible community-acquired pneumonia treated with Rocephin azithromycin . other comorbidities cognitions appropriately address patient feels better afebrile with 3 L of oxygen at the time of discharge which is her usual requirement. Discharged home on azithromycin and prednisone she will follow up with the primary Dr Dr Wheeler and Dr. Loya Consults/Reason for consult Pulmonology Dr. Loya Operations or Procedures None Condition at Discharge: Fair Final Diagnosis/Problems List Acute on chronic hypoxic respiratory failure: Oxygen by nasal cannula Acute COPD exacerbation: Albuterol Atrovent Use of home oxygen 3 liters/minute History of psoriasis under the treatment of Dr. Tello Wheeler Possible community-acquired pneumonia: Rocephin azithromycin Solu-Medrol History of intubation in the past Chronic kidney disease stage 3 Morbid obesity Sleep apnea Hypercholesterolemia Neuropathic pain and sciatica Chronic back pain Chronic current smoker: Counseling Hypercholesterolemia Discharge Disposition: Home Discharge Instruct/Medications Diet: Cardiac 2g Na,low cholest Activity: Light activity Follow Up/Referral: Follow up with your primary Dr Wheeler in one week Follow up With the pulmonology Dr. Loya in two weeks Resume all your Previous home medications Medications: Azithromycin Prednisone Transmitted to [facility] 39 (Taken taken for discharge summary 39 minutes) Discharge Statement: "Patient was advised to return to the ER or call 911 if any headaches, dizziness, shortness of breath, chest pain, abdominal pain, bleeding, fevers, or worsening of medical condition. Patient was counseled about treatment plan, medications, possible side effects, patientverbalized understanding. All questions were answered to the best of my ability. This discharge took greater then 30 minutes in planning, reviewing documentation, counseling the patient, and discussing with other team members." ASSESSMENT ASSESSMENT Hospital Course Uneventful Assessment Acute on chronic hypoxic respiratory failure: Oxygen by nasal cannula Acute COPD exacerbation: Albuterol Atrovent Use of home oxygen 3 liters/minute History of psoriasis under the treatment of Dr. Tello Wheeler Possible community-acquired pneumonia: Rocephin azithromycin Solu-Medrol History of intubation in the past Chronic kidney disease stage 3 Morbid obesity Sleep apnea Hypercholesterolemia Neuropathic pain and sciatica Chronic back pain Chronic current smoker: Counseling Hypercholesterolemia Date of Service: Apr 09, 2024 Billing Provider: DIVINA GOODMAN MD Common Visit Codes: 23553-FFW/OBS DISCH DAY >30min DIVINA GOODMAN MD Apr 09, 2024 12:54
--- NOTE | 2024-04-09 23:42 | DVHPN2 ---
Progress Note - Dictate Date Seen: Apr 09, 2024 Medical Necessity Reason Pt with a Central, PICC or Fol: No Subjective Patient seen and examined at bedside. Remains on supplemental oxygen Overnight events reviewed. vital signs Vital Sign Date Time Temp Pulse Resp B/P (MAP) Pulse Ox O2 Delivery O2 Flow Rate FiO2 04/09/24 13:33 36.6 04/09/24 12:43 81 17 107/66 (80) 92 04/09/24 10:55 Nasal Cannula* 2 28 Total Intake and Output 04/08/24 04/08/24 04/09/24 15:00 23:00 07:00 Intake Total 300 ml 970 ml 300 ml Output Total 2050 ml 800 ml Balance 300 ml -1080 ml -500 ml objective Gen.: Patient lying in bed in no apparent distress. On supplemental oxygen. Head: Normocephalic, atraumatic. Eyes: EOMI/PERRLA. Ears: Normal hearing. Normal anatomy. Neck/trachea: Trachea midline, supple. Nose: Normal external anatomy. Mouth: Moist mucous membranes. Chest: Decreased air entry bilaterally. No wheezing or rhonchi. Cardiovascular: Positive S1, positive S2. Regular rate and rhythm. Abdomen: Positive bowel sounds in all 4 quadrants. Soft, non-tender, non- distended. : Deferred. Rectal: Deferred. Skin: Warm, dry. Intact. Extremities: 2+ radial pulses bilaterally. No lower extremity edema. Neuro: Awake, alert, oriented x3. No gross motor or sensory deficits. Cranial nerves II through XII intact. Gait not assessed. laboratory and microbiology Laboratory Tests 04/05/24 06:36 Test 04/05/24 06:36 Range/Units Serum Glucose 186 H 74-106 mg/dL Assessment/Plan Impression: Acute hypoxic respiratory failure COPD exacerbation Atelectasis Acute hypercarbic respiratory failure - pCO2 of 56.2 Lactic acidosis Morbid obesity Nicotine dependence Events: On supplemental oxygen, 2 LPM NC Taper O2 as tolerated Continue bronchodilators Continue steroids Continue antibiotics Incentive spirometry Antitussive PRN Patient is stable for discharge from the pulmonary standpoint. Labs and imaging reviewed. Rest of plan as noted below. Plan: Supplemental oxygen Titrate to keep O2 sats above 92%. Continue bronchodilators. Continue antibiotics Steroids Incentive spirometry Monitor renal function. Monitor electrolytes. Supplement as necessary. Monitor ins and outs. Active smoker, less than 1 pack a day - chronic hx of smoking Smoking cessation education given. Diet and lifestyle modifications for weight reduction Morbid obesity - complicates all care DVT prophylaxis - Lovenox. Prognosis: Poor given patient's multiple co-morbidities. Rest of plan per hospitalist and other consultants. Thank you Dr. Christian Campbell, for allowing me to participate in this patient's care. Further recommendations will depend on the patient's clinical course. Please do not hesitate to contact me if you have any questions or concerns. This medical document was created using an electronic medical record system with Kickfire dictation system. Although these documentations are being carefully reviewed, there may still be some phonetic and typographical changes. The errors are purely typographical, due to imperfection on the software program, and do not reflect any compromise in the patient's medical care. Plan discussed with: Patient, Other (LUIS MANUEL Cheatham) MICHELLE HOLM MD Apr 09, 2024 23:42
== END 2024-04-09 18:15 | disposition home or self-care (01) | DRG 177 ==
LOC: EDUNIT# 19:31 → EDBD 19:31 → ER 19:33 → TELE 22:03 → TELE-WESTW 04-05 19:56
PROVIDERS: ATTEND Family Medicine
PROC: 5A09357 Assistance with Respiratory Ventilation, Less than 24 Consecutive Hours, Continuous Positive Airway Pressure (ICD-10-PCS; principal; 2024-04-04)
PROC: 5A09357 Assistance with Respiratory Ventilation, Less than 24 Consecutive Hours, Continuous Positive Airway Pressure (ICD-10-PCS; 2024-04-06)
PROC: 5A0935A Assistance with Respiratory Ventilation, Less than 24 Consecutive Hours, High Flow/Velocity Cannula (ICD-10-PCS; 2024-04-09)
DX: J15.69 Pneumonia due to other Gram-negative bacteria (principal); J96.21 Acute and chronic respiratory failure with hypoxia; J96.22 Acute and chronic respiratory failure with hypercapnia; E87.20 Acidosis, unspecified; J44.1 Chronic obstructive pulmonary disease with (acute) exacerbation; J98.11 Atelectasis; J44.0 Chronic obstructive pulmonary disease with (acute) lower respiratory infection; Z68.41 Body mass index [BMI] 40.0-44.9, adult; J15.9 Unspecified bacterial pneumonia; Z20.822 Contact with and (suspected) exposure to COVID-19; E66.01 Morbid (severe) obesity due to excess calories; E78.00 Pure hypercholesterolemia, unspecified; F40.240 Claustrophobia; G47.30 Sleep apnea, unspecified; G89.29 Other chronic pain; M54.30 Sciatica, unspecified side; N18.30 Chronic kidney disease, stage 3 unspecified; F17.210 Nicotine dependence, cigarettes, uncomplicated; G62.9 Polyneuropathy, unspecified; F41.9 Anxiety disorder, unspecified; Z99.81 Dependence on supplemental oxygen; Z90.721 Acquired absence of ovaries, unilateral; Z98.51 Tubal ligation status; Z82.49 Family history of ischemic heart disease and other diseases of the circulatory system
CPT/HCPCS: 36415; 36600; 71045; 80053; 82805; 83605; 83735; 83880; 84484; 85025; 87426; 87804; 93005; 94640; 94660; 96374; 96375; 97163; 99291; G0378; J1100

== ENCOUNTER 2024-10-01 10:36 | Inpatient (IN) | payer OTHER, MEDICAID ==
[~2024-10-01] VITALS: Ht 170.2 cm; Wt 112.9 kg
[~2024-10-01 10:36] MED LIST changes: +AMIT100T75 PO; +ATOR40TA52 PO; +AZIT500T66 PO; +DULO1CAP6 PO; -DULO30CA2 PO; -FURO1TAB33 PO; -HYDR50TA69 PO; -LORA-622 PO; +PERCOT PO; +PRED20TA2 PO; -PREG150C PO; +PREG75CA90 PO; -SIMV20TA20 PO; +UPAD15TA PO
--- NOTE | 2024-10-01 10:55 | ED.PDOC ---
HPI (NEURO) HPI Comments 64-year-old female brought in by EMS presents to the ED with a c/o numbness in her hands and feet. Patient states that she has been feeling these symptoms for the past week. Patient relays that within the last week, she has fallen 2 times. Patient mentions that her "legs just give out" and she falls down. Patient denies hitting her head or losing consciousness. Patient states that she was last here at [facility] in March for COPD exacerbation. Patient mentions that she quit smoking in March 2024. No other symptoms or modifying factors present at this time. Most recent fall was two days ago. PMHx: FM, Neuropathy, COPD, CKF, Anxiety, Arthritis, HLD, Ovarian Cyst, Ectopic PSHx: Weight-loss surgery, Tubal ligation Allergies: NKDA EMS Vital Signs: BP: 119/78 HR: 83 Temp: 98.4F SpO2: 94% on 2L/NC RR: 18 HPI: Poor Historian. REVIEW OF SYSTEMS: CONSTITUTIONAL: Denies acute: fever, diaphoresis, chills, HEAD: Denies acute: headache, photophobia Eyes: Denies acute: Double vision, vision loss, eye pain, eye discharge. EARS: Denies acute: tinnitus, hearing loss, ear discharge, ear pain, THROAT: Denies acute: sore throat, swelling, difficulty swallowing , pain with swallowing, change in voice. NECK: Denies acute: neck pain, neck swelling, stiff neck. HEART: Denies acute : chest pain, palpitations, LUNGS: Denies acute: SOB, wheezing, cough, hemoptysis ABDOMEN: Denies acute: abdominal pain, Nausea, Vomiting, diarrhea, melena , hematemesis, hematochezia SKIN: Denies acute: rash, redness, lesions, itchiness. EXTREMITIES: Denies acute: calf pain, weakness, denies pain in extremity. Denies acute: Low back pain. Neuro: Denies acute: focal neurological deficit, motor or sensory focal neurological deficit, tremors, seizure like activity, confusion, dizziness, change in mental status, loss of bowel or bladder function, cauda equina like symptoms. : Denies acute: dysuria, hematuria, flank pain, increase in urinary frequency. PSYCH: Denies acute: hallucination, suicidal ideation, homicidal ideation. FEMALE: Denies acute: abnormal vaginal bleeding, foul odor, unusual discharge. PHYSICAL EXAM: General: ----no----acute distress, awake and alert. Head: normocephalic, atraumatic. Neck: supple, trachea is midline, no swelling. Throat: Normal phonation. Eyes:, no erythema, no purulent discharge, no proptosis, no icterus. Heart: regular rate, regular rhythm, no significant murmur appreciated. Lungs: no apparent respiratory distress, Able to speak in full sentences. No wheezing, no rhonchi, no crackles. No stridors Clear to auscultation bilaterally. Abdomen: non tender to palpation, non distended, soft, no guarding, no rebound, + bowel sounds. Morbidly obese. Neuro: Awake, Alert, oriented to name, self, situation, follows commands GCS=15. Speech is normal. Skin: no petechia, no purpura, no cyanosis, non-pale, not jaundice. Lower extremities: --no - Pitting edema no deformity, no focal swelling, no calf TTP. Makes eye contact. moves all four extremities. Able to raise bilateral lower extremity against gravity and resistance and hold it. Face: no apparent facial droop. Stroke: finger to nose cerebellar testing is intact. No pronator drift. 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 Was a procedure done?: No Differential Diagnosis (SZ) Seizure: N/A CVA: CVA, DKA, Electrolyte Imbalance, Encephalopathy, Hypoglycemia, Hypoxemia, Mass Lesion, TIA General Weakness: Anemia, CVA, Dehydration, Dysrhythmia, Electrolyte imbalance, Encephalopathy, Guillain-[place], Hypoglycemia, Hypotension, Hypovolemia, Labyrinthitis, Meniere's disease, Myasthenia gravis, Myocardial infarction, Pulmonary embolus, Renal failure, Repiratory failure, TIA, VBI, Vertigo: central, Vertigo: peripheral, Vestibular neuronitis X-Ray, Labs, Meds, VS Vital Signs Date Time Temp Pulse Resp B/P (MAP) Pulse Ox O2 Delivery O2 Flow Rate FiO2 10/01/24 13:21 97.9 72 16 122/70 (87) 97 97.9 10/01/24 10:57 98.1 80 18 130/55 (80) 94 98.1 10/01/24 10:53 98.4 83 18 119/78 (92) 94 98.4 Lab Test 10/01/24 14:19 10/01/24 12:06 10/01/24 11:13 Range/Units Troponin I High Sensitivity 42 *H 41 *H 40 *H </=34 ng/L White Blood Count 5.6 4.4-10.8 10^3/uL Red Blood Count 4.03 4.0-5.20 10^6/uL Hemoglobin 11.6 L 12.2-16.2 g/dL Hematocrit 35.2 L 36.0-46.0 % Mean Corpuscular Volume 87.3 80.0-100.0 fL Mean Corpuscular Hemoglobin 28.8 28.0-32.0 pg Mean Corpuscular Hemoglobin Concent 33.0 32.0-36.0 g/dL Red Cell Distribution Width 14.8 H 11.8-14.3 % Platelet Count 242 140-450 10^3/uL Mean Platelet Volume 7.0 6.9-10.8 fL Neutrophils (%) (Auto) 60.3 37.0-80.0 % Lymphocytes (%) (Auto) 28.8 10.0-50.0 % Monocytes (%) (Auto) 6.8 0.0-12.0 % Eosinophils (%) (Auto) 3.3 0.0-7.0 % Basophils (%) (Auto) 0.8 0.0-2.0 % Neutrophils # (Auto) 3.4 1.6-8.6 10 ^3/uL Lymphocytes # (Auto) 1.6 0.4-5.4 10 ^3/uL Monocytes # (Auto) 0.4 0-1.3 10 ^3/uL Eosinophils # (Auto) 0.2 0-0.8 10 ^3/uL Basophils # (Auto) 0 0-0.2 10 ^3/uL Nucleated Red Blood Cells 0.0 % Sodium Level 140 136-145 mmol/L Potassium Level 3.7 3.5-5.1 mmol/L Chloride Level 103 98-107 mmol/L Carbon Dioxide Level 30 20-31 mmol/L Anion Gap 7 5-15 Blood Urea Nitrogen 17 9-23 mg/dL Creatinine 0.83 0.550-1.02 mg/dL Glomerular Filtration Rate Calc 78 >90 mL/min BUN/Creatinine Ratio 20.5 H 10.0-20.0 Serum Glucose 110 H 74-106 mg/dL Hemoglobin A1c 6.2 H <5.7 % A1C Lactic Acid Level 1.4 0.4-2.0 mmol/L Calcium Level 9.8 8.7-10.4 mg/dL Magnesium Level 2.0 1.6-2.6 mg/dL Total Bilirubin 0.3 0.2-1.0 mg/dL Aspartate Amino Transferase (AST) 34 13-40 U/L Alanine Aminotransferase (ALT) 16 7-40 U/L Alkaline Phosphatase 126 H 46-116 U/L Total Protein 6.8 5.7-8.2 g/dL Albumin 4.4 3.2-4.8 g/dL Thyroid Stimulating Hormone (TSH) 2.34 0.55-4.78 uIU/mL Current Medications Medications (Trade) Dose Ordered Sig/Davey Route Start Time Stop Time Status Last Admin Aspirin (Ecotrin Enteric Coated Tablet) 325 mg ONCE ONCE PO 10/01/24 12:15 10/01/24 12:21 DC 10/01/24 12:28 Acetaminophen/ Hydrocodone Bitart (Stryker 5/325MG Tab) 1 tab Q4HP PRN PO 10/01/24 15:15 10/02/24 10:04 PATIENT: SAMMY DEUTSCH ACCT: [id number] UNIT: [id number] : 1960 LOC: ER ROOM / BED: / AGE / SEX: 64 / F ADM STATUS: REG ER SERVICE 1208 ORDERING PHYSICIAN: RAYO NAYAK DO PROCEDURE(s): CXRP - CHEST PORTABLE REASON: WEAK ORDER NUMBER(s): [id number], ACCESSION NUMBER(s): [id number] CHEST RADIOGRAPH Indication: WEAK Technique: Single frontal view of the chest was obtained COMPARISON: XY CHEST PORTABLE on DOS: 04/04/24, XY CHEST PORTABLE on DOS: 10/01/22 FINDINGS: Lines and Tubes: None Lungs: Clear Pleura: No effusion. No pneumothorax. Cardiomediastinal contours: Unremarkable Bones: Unremarkable IMPRESSION: No acute disease. ATED BY: SKYLER CARLISLE MD DICTATED DATE/TIME: 10/01/24 1232 SIGNED BY: SKYLER CARLISLE MD SIGNED DATE/TIME: 10/01/24 1232 PATIENT: SAMMY DEUTSCH ACCT: [id number] UNIT: [id number] : 1960 LOC: ER ROOM / BED: / AGE / SEX: 64 / F ADM STATUS: REG ER SERVICE 1048 ORDERING PHYSICIAN: RAYO NAYAK DO PROCEDURE(s): HWOCT - HEAD WITHOUT CONTRAST REASON: weakness, fall ORDER NUMBER(s): [id number], ACCESSION NUMBER(s): [id number] EXAM: CT HEAD WITHOUT CONTRAST HISTORY: weakness, fall COMPARISON: CT HEAD WITHOUT CONTRAST on DOS: 10/01/22 TECHNIQUE: Axial images were obtained and reformatted in coronal and sagittal planes. All CT scans at this medical facility are performed using dose modulation techniques as appropriate to a performed exam including the following: Automated exposure control was utilized; adjustment of the MA and/or KV according to pa tient size; and use of iterative reconstruction technique. CT Dose: CTDI volume is 57 mGy. Dose-length product is 920 mGy*cm FINDINGS: Supratentorial Region: No evidence for large acute territorial ischemia. No intracranial hemorrhage is noted. Scattered white matter hypoattenuating foci are noted bilaterally, which typically reflect chronic microvascular ischemic changes. Posterior Fossa: No acute abnormality. Brainstem: Unremarkable. Sellar/Suprasellar Region: Unremarkable. Ventricles, Cisterns, Sulci: Age-appropriate. Orbits: Unremarkable. Paranasal Sinuses: Stable complete opacification of the left maxillary sinus. Mastoid Air Cells: Unremarkable. Vasculature: Unremarkable. Bones/Soft Tissues: No acute abnormality. Other: None. IMPRESSION: 1. No acute intracranial abnormality. 2. Chronic left maxillary sinus disease. ATED BY: GRETCHEN SCOTT MD DICTATED DATE/TIME: 10/01/24 1148 SIGNED BY: GRETCHEN SCOTT MD SIGNED DATE/TIME: 10/01/24 1148 Time of 1ST Reevaluation: 11:10 Reevaluation 1ST: Unchanged Patient Education/Counseling: Diagnosis, Treatment Family Education/Counseling: No Family Present Comments Patient presented with the above HPI.---numbness and tingling and fall---workup was initiated. patient was found with the above mentioned diagnosis. the following medications were ordered: please refer to order lists of meds and tests obtained by myself Dr. Nayak. Patient ED course and VS have been stabilized. Patient has been reassessed in the ED and remained in a stable condition. Pertinent incidental findings were discussed with the patient and/or family. Patient/family voices understanding and is agreeable with plan. Patient has been observed in the ED adequate length of time to insure improvement/stability. Escalation of care considered: Consideration of escalation to observation or admission Patient was found with slightly elevated troponin. Patient was ADMITTED to the medicine team for further evaluation and treatment of their presentation. All the reports of any imaging studies that were ordered by myself were reviewed by myself. Departure 1 Departure Time of Disposition: 12:09 Impression: Primary Impression: Generalized weakness Additional Impressions: Frequent falls Elevated troponin Disposition: ADMITTED INPATIENT Admit to: Tele Condition: Guarded Discharged With: Self Critical Care Note Critical Care Time?: No I personally scribed for RAYO NAYAK DO ([email or web address]) on 10/01/24 at 10:55. Electronically submitted by Rito Riley ([email or web address]). I personally scribed for RAYO NAYAK DO ([email or web address]) on 10/01/24 at 12:50. Electronically submitted by Rito Riley ([email or web address]). RAYO NAYAK DO October 01, 2024 10:55
[2024-10-01 11:39] LABS: Basophils # (auto) 0 10 ^3/uL (0-0.2); Basophils % (auto) 0.8 % (0.0-2.0); Eosinophils # (auto) 0.2 10 ^3/uL (0-0.8); Eosinophils % (auto) 3.3 % (0.0-7.0); Hematocrit 35.2 % (36.0-46.0); Hemoglobin 11.6 g/dL (12.2-16.2); Lymphocytes # (auto) 1.6 10 ^3/uL (0.4-5.4); Lymphocytes % (auto) 28.8 % (10.0-50.0); Mean Corpuscular Hemoglobin 28.8 pg (28.0-32.0); Mean Corpuscular Volume 87.3 fL (80.0-100.0); Monocytes # (auto) 0.4 10 ^3/uL (0-1.3); Monocytes % (auto) 6.8 % (0.0-12.0); Neutrophils # (auto) 3.4 10 ^3/uL (1.6-8.6); Neutrophils % (auto) 60.3 % (37.0-80.0); Platelet Count (auto) 242 10^3/uL (140-450); Red Blood Cells 4.03 10^6/uL (4.0-5.20); Red Cell Distribution Width 14.8 % (11.8-14.3); White Blood Cell 5.6 10^3/uL (4.4-10.8)
--- NOTE | 2024-10-01 11:50 | DVH ---
EXAM: CT HEAD WITHOUT CONTRAST HISTORY: weakness, fall COMPARISON: CT HEAD WITHOUT CONTRAST on DOS: 10/01/22 TECHNIQUE: Axial images were obtained and reformatted in coronal and sagittal planes. All CT scans at this medical facility are performed using dose modulation techniques as appropriate t o a performed exam including the following: Automated exposure control was utilized; adjustment of th e MA and/or KV according to patient size; and use of iterative reconstruction technique. CT Dose: CTDI volume is 57 mGy. Dose-length product is 920 mGy*cm FINDINGS: Supratentorial Region: No evidence for large acute territorial ischemia. No intracranial hemorrhage is noted. Scattered white matter hypoattenuating foci are noted bilaterally, which typically reflect chronic microvascular ischemic changes. Posterior Fossa: No acute abnormality. Brainstem: Unremarkable. Sellar/Suprasellar Region: Unremarkable. Ventricles, Cisterns, Sulci: Age-appropriate. Orbits: Unremarkable. Paranasal Sinuses: Stable complete opacification of the left maxillary sinus. Mastoid Air Cells: Unremarkable. Vasculature: Unremarkable. Bones/Soft Tissues: No acute abnormality. Other: None. IMPRESSION: 1. No acute intracranial abnormality. 2. Chronic left maxillary sinus disease.
[2024-10-01 11:55] LABS: Alanine Aminotransferase 16 U/L (7-40); Albumin 4.4 g/dL (3.2-4.8); Anion Gap 7 (5-15); Aspartate Aminotransferase 34 U/L (13-40); BUN/Creatinine Ratio 20.5 (10.0-20.0); Blood Urea Nitrogen 17 mg/dL (9-23); Calcium 9.8 mg/dL (8.7-10.4); Carbon Dioxide 30 mmol/L (20-31); Chloride 103 mmol/L (98-107); Potassium 3.7 mmol/L (3.5-5.1); Sodium 140 mmol/L (136-145); Total Protein 6.8 g/dL (5.7-8.2)
[2024-10-01 11:56] LABS: Alkaline Phosphatase 126 U/L (46-116); Glucose 110 mg/dL (74-106)
[2024-10-01 11:57] LABS: Bilirubin, Total 0.3 mg/dL (0.2-1.0)
[2024-10-01] MEDS: ASPirin-EC 325mg tab PO ONE (12:28)
--- NOTE | 2024-10-01 12:34 | DVH ---
CHEST RADIOGRAPH Indication: WEAK Technique: Single frontal view of the chest was obtained COMPARISON: XY CHEST PORTABLE on DOS: 04/04/24, XY CHEST PORTABLE on DOS: 10/01/22 FINDINGS: Lines and Tubes: None Lungs: Clear Pleura: No effusion. No pneumothorax. Cardiomediastinal contours: Unremarkable Bones: Unremarkable IMPRESSION: No acute disease.
[2024-10-01] MEDS ORDERED: BUSP10TA31 PO (15:08)
[2024-10-01] MEDS ORDERED: EZET-10 PO (15:08)
[2024-10-01] MEDS ORDERED: ONDANSETRON HCL 4 MG/2 ML VIAL IV PRN (15:15)
[2024-10-01] MEDS ORDERED: DEXTROSE (50%) 50ML SYRG IV PRN (15:15)
--- NOTE | 2024-10-01 15:20 | DVHHP2 ---
History of Present Illness Reason for Visit: Generalized weakness History of Present Illness Pauline Wong is a 64-year-old female with past medical history of hyperlipidemia, diabetes type 2, COPD on oxygen, chronic back pain, emphysema, neuropathy, and gastric sleeve surgery who presents to the ED with generalized weakness. She states that 1 week ago she was walking while her legs gave out and fell on her knees bilateral. She also states that couple of days shortly afterwards she fell again and hit her head. She reports that she did not lose consciousness. She also endorses that she uses a front wheel walker to ambulate. Patient also states that she sees a industrial painter monthly for her chronic back pain. Patient also reports that she quit smoking. Upon examination noticeable open wounds. Patient also states that she uses 2 L nasal cannula oxygen continuously at home. She denies recent travels, recent sick contacts, recent ingestion of spoiled food, fever, chills, lightheadedness, dizziness, chest pain, shortness of breath, abdominal pain, nausea, vomiting, dysuria symptoms, or diarrhea. Patient reports that she has been trying to void and provide urine sample but has been unable to. Cardiovascular: HTN Pulmonary: COPD Musculoskeletal: Chronic low back pain Endocrine: Diabetes Past Medical History Emphysema Neuropathy Past Surgical History: Other (Gastric sleeve surgery) Smoke: Quit ALCOHOL: none Drugs: None Lives: with Family Domestic Violence: Neg Review of Systems Constitutional: Yes: Weakness Allergies: Coded Allergies: NO KNOWN ALLERGIES (Unverified , 09/04/13) Medications Current Medications Medications Dose Ordered Sig/Davey Route Start Time Stop Time Status Last Admin Dose Admin Acetaminophen/ Hydrocodone Bitart 1 tab Q4HP PRN PO 10/01/24 15:15 UNV Ondansetron HCl 4 mg Q4HP PRN IV 10/01/24 15:15 UNV Enoxaparin Sodium 40 mg DAILY SC 10/02/24 10:00 UNV Acetaminophen 650 mg Q6HP PRN PO 10/01/24 15:15 UNV Diagnostic Test (Pha) 1 strip ACHS 10/01/24 17:00 UNV Insulin Human Regular ACHS SC 10/01/24 17:00 UNV Dextrose 50 ml UD PRN IV 10/01/24 15:15 UNV Exam Vital Signs Vital Signs Date Time Temp Pulse Resp B/P (MAP) Pulse Ox O2 Delivery O2 Flow Rate FiO2 10/01/24 13:21 97.9 72 16 122/70 (87) 97 97.9 General Appearance: Alert, Oriented X3, Cooperative, No acute distress HEENT: Atraumatic, PERRLA, EOMI, Mucous membr. moist/pink Respiratory: Normal air movement Cardiovascular: Regular rate, Normal S1, Normal S2 Abdominal: Normal bowel sounds, Soft Extremities: No clubbing, No cyanosis, Normal pulses Skin: No significant lesion Neuro: Normal speech, Normal tone, Sensation intact Psych/Mental Status: Mental status NL, Mood NL Labs/Xrays Labs Test 10/01/24 14:19 10/01/24 11:13 Range/Units Troponin I High Sensitivity 42 *H </=34 ng/L White Blood Count 5.6 4.4-10.8 10^3/uL Red Blood Count 4.03 4.0-5.20 10^6/uL Hemoglobin 11.6 L 12.2-16.2 g/dL Hematocrit 35.2 L 36.0-46.0 % Mean Corpuscular Volume 87.3 80.0-100.0 fL Mean Corpuscular Hemoglobin 28.8 28.0-32.0 pg Mean Corpuscular Hemoglobin Concent 33.0 32.0-36.0 g/dL Red Cell Distribution Width 14.8 H 11.8-14.3 % Platelet Count 242 140-450 10^3/uL Mean Platelet Volume 7.0 6.9-10.8 fL Neutrophils (%) (Auto) 60.3 37.0-80.0 % Lymphocytes (%) (Auto) 28.8 10.0-50.0 % Monocytes (%) (Auto) 6.8 0.0-12.0 % Eosinophils (%) (Auto) 3.3 0.0-7.0 % Basophils (%) (Auto) 0.8 0.0-2.0 % Neutrophils # (Auto) 3.4 1.6-8.6 10 ^3/uL Lymphocytes # (Auto) 1.6 0.4-5.4 10 ^3/uL Monocytes # (Auto) 0.4 0-1.3 10 ^3/uL Eosinophils # (Auto) 0.2 0-0.8 10 ^3/uL Basophils # (Auto) 0 0-0.2 10 ^3/uL Nucleated Red Blood Cells 0.0 % Sodium Level 140 136-145 mmol/L Potassium Level 3.7 3.5-5.1 mmol/L Chloride Level 103 98-107 mmol/L Carbon Dioxide Level 30 20-31 mmol/L Anion Gap 7 5-15 Blood Urea Nitrogen 17 9-23 mg/dL Creatinine 0.83 0.550-1.02 mg/dL Glomerular Filtration Rate Calc 78 >90 mL/min BUN/Creatinine Ratio 20.5 H 10.0-20.0 Serum Glucose 110 H 74-106 mg/dL Lactic Acid Level 1.4 0.4-2.0 mmol/L Calcium Level 9.8 8.7-10.4 mg/dL Magnesium Level 2.0 1.6-2.6 mg/dL Total Bilirubin 0.3 0.2-1.0 mg/dL Aspartate Amino Transferase (AST) 34 13-40 U/L Alanine Aminotransferase (ALT) 16 7-40 U/L Alkaline Phosphatase 126 H 46-116 U/L Total Protein 6.8 5.7-8.2 g/dL Albumin 4.4 3.2-4.8 g/dL CHEST RADIOGRAPH Indication: WEAK Technique: Single frontal view of the chest was obtained COMPARISON: XY CHEST PORTABLE on DOS: 04/04/24, XY CHEST PORTABLE on DOS: 10/01/22 FINDINGS: Lines and Tubes: None Lungs: Clear Pleura: No effusion. No pneumothorax. Cardiomediastinal contours: Unremarkable Bones: Unremarkable IMPRESSION: No acute disease. EXAM: CT HEAD WITHOUT CONTRAST HISTORY: weakness, fall COMPARISON: CT HEAD WITHOUT CONTRAST on DOS: 10/01/22 TECHNIQUE: Axial images were obtained and reformatted in coronal and sagittal planes. All CT scans at this medical facility are performed using dose modulation techniques as appropriate to a performed exam including the following: Automated exposure control was utilized; adjustment of the MA and/or KV according to patient size; and use of iterative reconstruction technique. CT Dose: CTDI volume is 57 mGy. Dose-length product is 920 mGy*cm FINDINGS: Supratentorial Region: No evidence for large acute territorial ischemia. No intracranial hemorrhage is noted. Scattered white matter hypoattenuating foci are noted bilaterally, which typically reflect chronic microvascular ischemic changes. Posterior Fossa: No acute abnormality. Brainstem: Unremarkable. Sellar/Suprasellar Region: Unremarkable. Ventricles, Cisterns, Sulci: Age-appropriate. Orbits: Unremarkable. Paranasal Sinuses: Stable complete opacification of the left maxillary sinus. Mastoid Air Cells: Unremarkable. Vasculature: Unremarkable. Bones/Soft Tissues: No acute abnormality. Other: None. IMPRESSION: 1. No acute intracranial abnormality. 2. Chronic left maxillary sinus disease. Assessment/Plan Assessment/Plan Assessment Generalized weakness Obesity Bilateral knee pain and left 2nd toe pain status post fall rule out fracture Acute hypoxic respiratory failure Ex tobacco user History of hyperlipidemia History of diabetes type 2 History of COPD on oxygen History of chronic back pain History of emphysema History of neuropathy History of gastric sleeve surgery Plan Admit to tele Supportive oxygen Troponins peaked at 42 Antiemetics Pain management UA Aspirin Chest x-ray noted Magnesium CT head done EKG Lactic level Orthostatics Hemoglobin A1c ISS and Accu-Cheks X-ray knees bilateral X-ray left 2nd toe Echo ordered Diet Home medications reconciled DVT prophylaxis-Lovenox PUD prophylaxis-PPIs Discussed plan of care with patient and nurse Counseled patient on continuance of smoking cessation Counseled patient on lifestyle modifications, diet, and exercise Plan discussed with: Patient My Orders Orders - LILLIAM ORTIZ [employer] PLANNER Procedure Category Date Status Time Admit ADMIT 10/01/24 Transmitted 15:03 Allergies DODIE 10/01/24 In Process 15:03 Code Status CODE 10/01/24 Transmitted 15:03 Hydrocodone-Acet PHA 10/01/24 Logged 5/325mg Tab ([place] 15:15 Ondansetron Hcl PHA 10/01/24 Logged (Zofran) 15:15 Enoxaparin Sodium PHA 10/02/24 Logged (Lovenox) 10:00 Complete Blood Count LAB 10/02/24 Verified 04:00 Comprehensive LAB 10/02/24 Verified Metabolic Panel 04:00 Cardiac DIET 10/01/24 Transmitted Diet-2gna,Lofat,Lochol Dinner Acetaminophen Tablet PHA 10/01/24 Logged (Tylenol Tablet) 15:15 Glucose Blood PHA 10/01/24 Logged (Accu-Chek Comfort 17:00 Insulin R (Human) PHA 10/01/24 Logged (Insulin R) 17:00 Dextrose 50% Syringe PHA 10/01/24 Logged 15:15 Hemoglobin A1c LAB 10/01/24 Logged 15:03 L Knee 3v Xray XY 10/01/24 Logged 15:03 R Knee 3v Xray XY 10/01/24 Logged 15:03 L 2nd Toe Xray XY 10/01/24 Logged 15:03 Echo 2d Mode Cardiac US 10/01/24 Logged DOP 15:03 Pregabalin Capsule PHA 10/01/24 Transmitted (Lyrica Capsule) 22:00 (Nf) Amitriptyline PHA 10/02/24 Transmitted Hcl (Amitriptyline Hy 10:00 (Nf) Atorvastatin PHA 10/02/24 Transmitted Calcium 10:00 (Nf) Duloxetine Hcl PHA 10/02/24 Transmitted 10:00 (Nf) Upadacitinib PHA 10/02/24 Transmitted (Rinvoq) 10:00 Buspirone Hcl Tablet PHA 10/01/24 Verified (Buspar Tablet) 22:00 Ezetimibe (Zetia) PHA 10/02/24 Verified 10:00 Date of Service: October 01, 2024 Billing Provider: LILLIAM ORTIZ Common Visit Codes: [id number] INP/OBS CARE (HIGH) LILLIAM ORTIZ October 01, 2024 15:20
--- NOTE | 2024-10-01 15:48 | DVH ---
EXAM: XY L KNEE 3V XRAY HISTORY: s/p fall and pain COMPARISON: None TECHNIQUE: 3 views of the left knee were performed. FINDINGS: No acute fracture is identified about the left knee. No significant joint space narrowing. There are enthesophytes on the tibial tubercle and inferior pole of the patella. No evidence of significant desiree int effusion. IMPRESSION: 1. No acute fracture of the left knee. 2. Quadriceps tendon calcific enthesopathy.
--- NOTE | 2024-10-01 15:49 | DVH ---
EXAM: XY R KNEE 3V XRAY HISTORY: s/p fall and pain COMPARISON: None TECHNIQUE: 3 views of the right knee were performed. FINDINGS: No acute fracture is identified about the right knee. No significant joint space narrowing. There is chondrocalcinosis of the lateral meniscus. There are enthesophytes on the superior and inferior pole s of the patella. No evidence of significant joint effusion. There are atherosclerotic calcifications of the distal SFA. IMPRESSION: 1. No acute fracture or significant degenerative changes of the right knee. 2. Chondrocalcinosis of the right knee lateral meniscus. 3. Quadriceps and patellar tendon enthesopathy.
--- NOTE | 2024-10-01 15:50 | DVH ---
CLINICAL INDICATION: s/p fall and pain TECHNIQUE: XY L 2ND TOE XRAY Comparison: None FINDINGS/IMPRESSION: : There is no evidence of acute fracture or dislocation. Soft tissues are unremarkable.
[2024-10-01 16:16] LABS: Urine Bacteria FEW /hpf (None Seen); Urine Blood Negative /uL (Negative); Urine Clarity Clear (Clear); Urine Color Light-Yellow (Yellow); Urine Protein, UAD Negative (Negative); Urine Specific Gravity 1.007 (1.001-1.035); Urine Squamous Epithelial Cell FEW /hpf (<5); Urine Urobilinogen Normal (Negative); Urine WBC < 1 /HPF (0-5)
[2024-10-01 16:23] LABS: Opiate Scree,Urine Neg (NEGATIVE)
[2024-10-01 16:24] LABS: Amphetamine Screen, Urine Neg (NEGATIVE); Barbiturate Scree,Urine Neg (NEGATIVE); Benzodiazephine Screen, Urine Neg (NEGATIVE); Cocaine Screen, Urine Neg (NEGATIVE)
[2024-10-01 16:25] LABS: Cannabinoid Screen, Urine Neg (NEGATIVE); Phencyclidine Screen, Urine Neg (NEGATIVE)
[2024-10-01 20:00] VITALS: PULSE 89; RESP 19; O2SAT 96
[2024-10-01] MEDS: InsuLIN REG 1unit/0.01ml Soln (100units/ml) SC SCH (20:12)
[2024-10-01] MEDS: ACCU-CHEK COMFORT CURVE STRIP VI SCH (20:12)
[2024-10-01 20:25] VITALS: BP 118/51; PULSE 89; RESP 19; TEMP 97.2; O2SAT 96
[2024-10-01 21:00] VITALS: BP 118/51; PULSE 89; RESP 19; TEMP 97.2; O2SAT 96
[2024-10-01] MEDS: busPIRone HCL 10 MG TAB PO SCH (21:33)
[2024-10-01] MEDS: PREGABALIN CAPSULE 75 MG CAP PO SCH (21:33)
[2024-10-01] MEDS: HYDROcodone-ACET 5/325MG TAB PO PRN (21:33)
[2024-10-02] VITALS (10 sets, daily range): BP systolic 101–156; BP diastolic 44–93; PULSE 75–89; RESP 16–20; TEMP 96.9–97.7; O2SAT 96–99
[2024-10-02 07:58] LABS: Basophils # (auto) 0.1 10 ^3/uL (0-0.2); Basophils % (auto) 1.1 % (0.0-2.0); Eosinophils # (auto) 0.2 10 ^3/uL (0-0.8); Eosinophils % (auto) 4.2 % (0.0-7.0); Hematocrit 36.3 % (36.0-46.0); Hemoglobin 12.1 g/dL (12.2-16.2); Lymphocytes # (auto) 1.6 10 ^3/uL (0.4-5.4); Lymphocytes % (auto) 33.2 % (10.0-50.0); Mean Corpuscular Hemoglobin 29.3 pg (28.0-32.0); Mean Corpuscular Hgb Conc. 33.3 g/dL (32.0-36.0); Mean Corpuscular Volume 87.9 fL (80.0-100.0); Monocytes # (auto) 0.3 10 ^3/uL (0-1.3); Neutrophils # (auto) 2.6 10 ^3/uL (1.6-8.6); Neutrophils % (auto) 54.5 % (37.0-80.0); Nucleated Red Blood Cells % 0.2 %; Platelet Count (auto) 236 10^3/uL (140-450); Red Blood Cells 4.13 10^6/uL (4.0-5.20); Red Cell Distribution Width 15.1 % (11.8-14.3); White Blood Cell 4.8 10^3/uL (4.4-10.8)
[2024-10-02 08:04] LABS: Alanine Aminotransferase 12 U/L (7-40); Albumin 4.3 g/dL (3.2-4.8); Anion Gap 7 (5-15); Aspartate Aminotransferase 25 U/L (13-40); BUN/Creatinine Ratio 20.8 (10.0-20.0); Bilirubin, Total 0.3 mg/dL (0.2-1.0); Blood Urea Nitrogen 16 mg/dL (9-23); Calcium 9.3 mg/dL (8.7-10.4); Chloride 104 mmol/L (98-107); Glucose 101 mg/dL (74-106); Potassium 3.9 mmol/L (3.5-5.1); Sodium 143 mmol/L (136-145); Total Protein 6.8 g/dL (5.7-8.2)
[2024-10-02 08:06] LABS: Alkaline Phosphatase 120 U/L (46-116); Carbon Dioxide 32 mmol/L (20-31)
[2024-10-02] MEDS: PANTOPRAZOLE 40 MG/10 ML VIAL INJ IV SCH (09:44)
[2024-10-02] MEDS: UPADACITINIB 15 MG PO SCH (09:45)
[2024-10-02] MEDS: ATORVASTATIN 20 MG TAB PO SCH (09:45)
[2024-10-02] MEDS: ENOXAPARIN SOD 40 MG/0.4 ML SYRINGE SC SCH (09:47)
[2024-10-02] MEDS: EZETIMIBE 10 MG TAB PO SCH (09:59)
[2024-10-02] MEDS ORDERED: AMITRIPTYLINE HCL 25 MG TAB PO SCH (10:00)
[2024-10-02] MEDS ORDERED: DULoxetine HCL 30 MG CAP PO SCH (10:00)
[2024-10-02] MEDS: OXYCODONE W/ ACETAMINOPHEN 5/325MG TABLET PO PRN (14:19)
--- NOTE | 2024-10-02 14:20 | DVHSR ---
APPROVED REPORT EXAM: Two-dimensional and M-mode echocardiogram with Doppler and color Doppler. Blood Pressure: 150/74 mmHg INDICATION weakness RISK FACTORS Height: 67, Weight: 250 DIMENSIONS LVDd (3.8-5.7cm)LA (2D)4.4 (1.9-4.0cm)Aortic Root3.3 (2.0-3.7cm) LVDs (2.5-4.0cm)LA (MM) (1.9-4.0cm)Aortic Cusp Exc1.3 (1.5-2.0cm) EF (%) 55.0 (55-70%)Rt. Atrium3.0 (1.9-4.0cm)Asc. Aorta cm Mitral Valve MitralMitral Stenosis E wave1.07m/sMV Mean GR.mmHg A wave0.86m/sMV Peak GR.mmHg E/A ratio1.22D MVAcm2 DECEL [id number] 1/2 [id number] IVRTmsDop MVA4.03cm2 Aortic Valve Aortic ValveAortic Stenosis V11.90m/Naveed Mean GR.10mmHg V22.37m/Naveed Peak GR.22mmHg LVOT Diameter2.0 (1.8-2.4cm)Doppler AVA2.52cm2 Pulmonic Valve V21.14m/s Tricuspid Valve TR Velocity2.24m/s [id number] Conclusion lvef 65% by visual estimate normal rv function left atrium enlarged moderate no severe valve abnormalities noted
--- NOTE | 2024-10-02 17:46 | DVHPN2 ---
Subjective 64-year-old female came with a chief complaint of generalized weakness She says she suddenly lost her strength in a her whole-body for about a week now She takes Percocet at home for chronic low back pain She has COPD and she is on home O2 Changes from previous H/P or p: Changes Objective Vitals Vital Signs Date Time Temp Pulse Resp B/P (MAP) Pulse Ox O2 Delivery O2 Flow Rate FiO2 10/02/24 17:00 96.9 80 17 117/81 (93) 96 96.9 10/02/24 07:30 Nasal Cannula* 2 28 Intake/Output Intake and Output 10/02/24 07:00 Intake Total 500 ml Output Total 1 ml Balance 499 ml Intake Oral 500 ml Output Urine Total 1 ml General Appearance: Alert, Oriented X3, Cooperative, No acute distress Lungs: Clear to auscultation, Normal air movement Cardiovascular: Regular rate, Normal S1, Normal S2, No murmurs Abdomen: Normal bowel sounds, Soft, No tenderness Extremities: No edema Medications Current Medications Medications Dose Ordered Sig/Davey Route Start Time Stop Time Status Last Admin Dose Admin Ondansetron HCl 4 mg Q4HP PRN IV 10/01/24 15:15 Enoxaparin Sodium 40 mg DAILY SC 10/02/24 10:00 10/02/24 09:47 40 MG Acetaminophen 650 mg Q6HP PRN PO 10/01/24 15:15 Diagnostic Test (Pha) 1 strip ACHS 10/01/24 17:00 10/02/24 12:19 1 STRIP Insulin Human Regular ACHS SC 10/01/24 17:00 10/01/24 20:12 3 UNITS Dextrose 50 ml UD PRN IV 10/01/24 15:15 Pregabalin 75 mg BID PO 10/01/24 22:00 10/02/24 09:46 75 MG Atorvastatin Calcium 40 mg DAILY PO 10/02/24 10:00 10/02/24 09:45 40 MG Patient Own Medication 1 tab DAILY PO 10/02/24 10:00 Buspirone HCl 10 mg BID PO 10/01/24 22:00 10/02/24 09:46 10 MG EZETIMIBE 10 mg DAILY PO 10/02/24 10:00 10/02/24 09:59 10 MG Pantoprazole Sodium 40 mg DAILY IV 10/02/24 10:00 10/02/24 09:44 40 MG Amitriptyline HCl 100 mg HS PO 10/02/24 22:00 Duloxetine HCl 60 mg HS PO 10/02/24 22:00 Oxycodone/ Acetaminophen 1 tab Q6HP PRN PO 10/02/24 13:15 Oxycodone/ Acetaminophen 2 tab Q6HP PRN PO 10/02/24 13:15 10/02/24 14:19 2 TAB Laboratory Results Laboratory Tests 10/02/24 07:25 Chemistry Test 10/02/24 07:25 Albumin 4.3 g/dL (3.2-4.8) Calcium Level 9.3 mg/dL (8.7-10.4) Total Protein 6.8 g/dL (5.7-8.2) LFT Test 10/02/24 07:25 Alanine Aminotransferase (ALT) 12 U/L (7-40) Alkaline Phosphatase 120 U/L (46-116) H Aspartate Amino Transferase (AST) 25 U/L (13-40) Total Bilirubin 0.3 mg/dL (0.2-1.0) Urinalysis Test 10/01/24 15:51 Urine Color Light-yellow (Yellow) Urine Clarity Clear (Clear) Urine pH 7.0 (5.0-9.0) Urine Specific [place] 1.007 (1.001-1.035) Urine Protein Negative (Negative) Urine Ketones Negative (Negative) Urine Blood Negative /uL (Negative) Urine Nitrite Negative (Negative) Urine Bilirubin Negative (Negative) Urine Urobilinogen Normal mg/dL (Negative) Urine Leukocyte Esterase Negative /uL (Negative) Urine RBC <1 /hpf (0 - 4) Urine Microscopic WBC < 1 /HPF (0-5) Urine Squamous Epithelial Cells Few /hpf (<5) Urine Bacteria Few /hpf (None Seen) H Urine Glucose Normal mg/dL (Normal) Assessment/Plan Assessment/Plan Generalized weakness COPD Chronic respiratory failure on home O2 Type 2 diabetes Morbid obesity Chronic low back pain Mild chronic anemia Elevated troponin, no significance Anxiety Plan Imaging studies of the knees and chest and CT of the head and x-ray of the toes were negative for any fracture Order physical therapy Pain control as needed with Percocet which she takes at home Continue Lyrica which is pregabalin Controlled diabetes with a sliding scale regular insulin Continue home meds including Cymbalta Buspirone Lipitor Amitriptyline Buspirone Oxygen Full code Advance directives discussed for 21 minutes Plan discussed with: Patient My Orders Orders - GORDO PINEDA MD Procedure Category Date Status Time Amitriptyline Hcl PHA 10/02/24 In Process Tablet (Elavil Tablet) 22:00 Duloxetine Hcl PHA 10/02/24 In Process Capsule (Cymbalta 22:00 Pt Request For Service PT 10/02/24 Logged 13:10 Oxycodone W/ Acet PHA 10/02/24 In Process 5/325mg Tab (Percocet 13:15 Oxycodone W/ Acet PHA 10/02/24 In Process 5/325mg Tab (Percocet 13:15 Date of Service: October 02, 2024 Billing Provider: GORDO PINEDA MD Common Visit Codes: [id number] INP/OBS CARE(HIGH) Secondary Visit Codes: [id number] CARE PLAN 30 MINUTES GORDO PINEDA MD October 02, 2024 17:46
[2024-10-02] MEDS: AMITRIPTYLINE HCL 25 MG TAB PO SCH (21:42)
[2024-10-02] MEDS: DULoxetine HCL 30 MG CAP PO SCH (21:43)
[2024-10-03] VITALS (8 sets, daily range): BP systolic 102–159; BP diastolic 60–93; PULSE 72–82; RESP 16–18; TEMP 96.5–98; O2SAT 96–99
--- NOTE | 2024-10-03 11:56 | DVHPN2 ---
Subjective No new complaints except pain and aches in her shoulders Changes from previous H/P or p: Changes Objective Vitals Vital Signs Date Time Temp Pulse Resp B/P (MAP) Pulse Ox O2 Delivery O2 Flow Rate FiO2 10/03/24 09:00 96.5 72 18 158/93 (114) 99 96.5 10/03/24 08:00 Nasal Cannula* 2 28 Intake/Output Intake and Output 10/03/24 07:00 Intake Total 1325 ml Balance 1325 ml Intake Oral 1325 ml # Voids 4 General Appearance: Alert, Oriented X3, Cooperative, No acute distress Lungs: Clear to auscultation, Normal air movement Cardiovascular: Regular rate, Normal S1, Normal S2, No murmurs Abdomen: Normal bowel sounds, Soft, No tenderness Extremities: No edema Medications Current Medications Medications Dose Ordered Sig/Davey Route Start Time Stop Time Status Last Admin Dose Admin Ondansetron HCl 4 mg Q4HP PRN IV 10/01/24 15:15 Enoxaparin Sodium 40 mg DAILY SC 10/02/24 10:00 10/03/24 09:29 40 MG Acetaminophen 650 mg Q6HP PRN PO 10/01/24 15:15 Diagnostic Test (Pha) 1 strip ACHS 10/01/24 17:00 10/03/24 06:49 1 STRIP Insulin Human Regular ACHS SC 10/01/24 17:00 10/01/24 20:12 3 UNITS Dextrose 50 ml UD PRN IV 10/01/24 15:15 Pregabalin 75 mg BID PO 10/01/24 22:00 10/03/24 09:29 75 MG Atorvastatin Calcium 40 mg DAILY PO 10/02/24 10:00 10/03/24 09:28 40 MG Patient Own Medication 1 tab DAILY PO 10/02/24 10:00 Buspirone HCl 10 mg BID PO 10/01/24 22:00 10/03/24 09:29 10 MG EZETIMIBE 10 mg DAILY PO 10/02/24 10:00 10/03/24 09:29 10 MG Pantoprazole Sodium 40 mg DAILY IV 10/02/24 10:00 10/03/24 09:28 40 MG Amitriptyline HCl 100 mg HS PO 10/02/24 22:00 10/02/24 21:42 100 MG Duloxetine HCl 60 mg HS PO 10/02/24 22:00 10/02/24 21:43 60 MG Oxycodone/ Acetaminophen 1 tab Q6HP PRN PO 10/02/24 13:15 Oxycodone/ Acetaminophen 2 tab Q6HP PRN PO 10/02/24 13:15 10/03/24 09:29 2 TAB Laboratory Results Laboratory Tests 10/02/24 07:25 Urinalysis Test 10/01/24 15:51 Urine Color Light-yellow (Yellow) Urine Clarity Clear (Clear) Urine pH 7.0 (5.0-9.0) Urine Specific [place] 1.007 (1.001-1.035) Urine Protein Negative (Negative) Urine Ketones Negative (Negative) Urine Blood Negative /uL (Negative) Urine Nitrite Negative (Negative) Urine Bilirubin Negative (Negative) Urine Urobilinogen Normal mg/dL (Negative) Urine Leukocyte Esterase Negative /uL (Negative) Urine RBC <1 /hpf (0 - 4) Urine Microscopic WBC < 1 /HPF (0-5) Urine Squamous Epithelial Cells Few /hpf (<5) Urine Bacteria Few /hpf (None Seen) H Urine Glucose Normal mg/dL (Normal) Assessment/Plan Assessment/Plan Generalized weakness COPD Chronic respiratory failure on home O2 Type 2 diabetes Morbid obesity Chronic low back pain Mild chronic anemia Elevated troponin, no significance Anxiety Plan Imaging studies of the knees and chest and CT of the head and x-ray of the toes were negative for any fracture Order physical therapy Pain control as needed with Percocet which she takes at home Continue Lyrica which is pregabalin Controlled diabetes with a sliding scale regular insulin Continue home meds including Cymbalta Buspirone Lipitor Amitriptyline Buspirone Oxygen Full code Advance directives discussed for 21 minutes 10/03/2024: Continue current management Physical therapy She might need to go to SNF for rehab if she qualifies Monitor closely Plan discussed with: Patient My Orders Orders - GORDO PINEDA MD Procedure Category Date Status Time Amitriptyline Hcl PHA 10/02/24 In Process Tablet (Elavil Tablet) 22:00 Duloxetine Hcl PHA 10/02/24 In Process Capsule (Cymbalta 22:00 Pt Request For Service PT 10/02/24 Logged 13:10 Oxycodone W/ Acet PHA 10/02/24 In Process 5/325mg Tab (Percocet 13:15 Oxycodone W/ Acet PHA 10/02/24 In Process 5/325mg Tab (Percocet 13:15 Date of Service: October 03, 2024 Billing Provider: GORDO PINEDA MD Common Visit Codes: [id number] INP/OBS CARE(HIGH) GORDO PINEDA MD October 03, 2024 11:56
[2024-10-03 13:08] LABS: Base Excess 3.9 mmol/L (-2.0-3.0)
[2024-10-03] MEDS: ACETAMINOPHEN 325 MG TAB PO PRN (14:29)
[2024-10-03] MEDS: OXYCODONE W/ ACETAMINOPHEN 5/325MG TABLET PO PRN (16:08)
[2024-10-04] VITALS (8 sets, daily range): BP systolic 121–168; BP diastolic 78–90; PULSE 68–84; RESP 16–21; TEMP 96.8–97.9; O2SAT 95–98
[2024-10-04] MEDS ORDERED: hydrALAZINE HCL 20 MG/ML VL IV PRN (15:30)
--- NOTE | 2024-10-04 15:32 | DVHPN2 ---
Subjective No new complaints except pain and aches in her shoulders Changes from previous H/P or p: Changes Objective Vitals Vital Signs Date Time Temp Pulse Resp B/P (MAP) Pulse Ox O2 Delivery O2 Flow Rate FiO2 10/04/24 13:00 97.4 84 21 168/78 (108) 96 97.4 10/04/24 08:10 Nasal Cannula* 2 28 Intake/Output Intake and Output 10/04/24 07:00 Intake Total 1520 ml Balance 1520 ml Intake Oral 1520 ml # Voids 6 General Appearance: Alert, Oriented X3, Cooperative, No acute distress Lungs: Clear to auscultation, Normal air movement Cardiovascular: Regular rate, Normal S1, Normal S2, No murmurs Abdomen: Normal bowel sounds, Soft, No tenderness Extremities: No edema Medications Current Medications Medications Dose Ordered Sig/Davey Route Start Time Stop Time Status Last Admin Dose Admin Ondansetron HCl 4 mg Q4HP PRN IV 10/01/24 15:15 Enoxaparin Sodium 40 mg DAILY SC 10/02/24 10:00 10/04/24 09:30 40 MG Acetaminophen 650 mg Q6HP PRN PO 10/01/24 15:15 10/03/24 14:29 650 MG Diagnostic Test (Pha) 1 strip ACHS 10/01/24 17:00 10/04/24 11:03 1 STRIP Insulin Human Regular ACHS SC 10/01/24 17:00 10/01/24 20:12 3 UNITS Dextrose 50 ml UD PRN IV 10/01/24 15:15 Pregabalin 75 mg BID PO 10/01/24 22:00 10/04/24 09:30 75 MG Atorvastatin Calcium 40 mg DAILY PO 10/02/24 10:00 10/04/24 09:30 40 MG Patient Own Medication 1 tab DAILY PO 10/02/24 10:00 Buspirone HCl 10 mg BID PO 10/01/24 22:00 10/04/24 09:30 10 MG EZETIMIBE 10 mg DAILY PO 10/02/24 10:00 10/04/24 09:30 10 MG Pantoprazole Sodium 40 mg DAILY IV 10/02/24 10:00 10/04/24 09:30 40 MG Amitriptyline HCl 100 mg HS PO 10/02/24 22:00 10/03/24 22:13 100 MG Duloxetine HCl 60 mg HS PO 10/02/24 22:00 10/03/24 22:12 60 MG Oxycodone/ Acetaminophen 1 tab Q6HP PRN PO 10/02/24 13:15 10/04/24 14:49 1 TAB Oxycodone/ Acetaminophen 2 tab Q6HP PRN PO 10/02/24 13:15 10/04/24 09:31 2 TAB Laboratory Results Laboratory Tests 10/02/24 07:25 Urinalysis Test 10/01/24 15:51 Urine Color Light-yellow (Yellow) Urine Clarity Clear (Clear) Urine pH 7.0 (5.0-9.0) Urine Specific [place] 1.007 (1.001-1.035) Urine Protein Negative (Negative) Urine Ketones Negative (Negative) Urine Blood Negative /uL (Negative) Urine Nitrite Negative (Negative) Urine Bilirubin Negative (Negative) Urine Urobilinogen Normal mg/dL (Negative) Urine Leukocyte Esterase Negative /uL (Negative) Urine RBC <1 /hpf (0 - 4) Urine Microscopic WBC < 1 /HPF (0-5) Urine Squamous Epithelial Cells Few /hpf (<5) Urine Bacteria Few /hpf (None Seen) H Urine Glucose Normal mg/dL (Normal) Assessment/Plan Assessment/Plan Generalized weakness COPD Chronic respiratory failure on home O2 Type 2 diabetes Morbid obesity Chronic low back pain Mild chronic anemia Elevated troponin, no significance Anxiety HTN Plan Imaging studies of the knees and chest and CT of the head and x-ray of the toes were negative for any fracture Order physical therapy Pain control as needed with Percocet which she takes at home Continue Lyrica which is pregabalin Controlled diabetes with a sliding scale regular insulin Continue home meds including Cymbalta Buspirone Lipitor Amitriptyline Buspirone Oxygen Full code Advance directives discussed for 21 minutes 10/03/2024: Continue current management Physical therapy She might need to go to SNF for rehab if she qualifies Monitor closely 10/04/24: HTN: Start lisinopril, prn hydralazine Weakness: PT Anxiety CLBP Obesity Arrange SNF Plan discussed with: Patient My Orders Orders - GORDO PINEDA MD Procedure Category Date Status Time Lisinopril Tablet PHA 10/04/24 Logged (Zestril Tablet) 15:30 Lisinopril Tablet PHA 10/05/24 Logged (Zestril Tablet) 10:00 Hydralazine Injection PHA 10/04/24 Logged (Apresoline Inject 15:30 Date of Service: October 04, 2024 Billing Provider: GORDO PINEDA MD Common Visit Codes: [id number] INP/OBS CARE(HIGH) GORDO PINEDA MD October 04, 2024 15:32
[2024-10-04] MEDS: diphenhdrAMINE HCL 25 MG CAP PO PRN (16:58)
[2024-10-04] MEDS: LORATADINE 10 MG TAB PO ONE (20:21)
[2024-10-05] VITALS (7 sets, daily range): BP systolic 99–145; BP diastolic 66–81; PULSE 70–92; RESP 17–18; TEMP 97.1–98.8; O2SAT 94–100
[2024-10-05] MEDS: LISINOPRIL 5 MG TAB PO ONE (07:00)
[2024-10-05] MEDS: LISINOPRIL 5 MG TAB PO SCH (09:47)
[2024-10-05] MEDS: LORATADINE 10 MG TAB PO SCH (09:49)
--- NOTE | 2024-10-05 12:32 | DVHPN2 ---
Subjective Complains of itching and rash on the back and legs Changes from previous H/P or p: Changes Objective Vitals Vital Signs Date Time Temp Pulse Resp B/P (MAP) Pulse Ox O2 Delivery O2 Flow Rate FiO2 10/05/24 09:47 133/66 10/05/24 08:05 Nasal Cannula* 2 28 10/05/24 08:00 73 10/05/24 05:00 97.3 18 94 97.3 Intake/Output Intake and Output 10/05/24 07:00 Intake Total 1385 ml Output Total 300 ml Balance 1085 ml Intake Oral 1385 ml Output Urine Total 300 ml # Voids 7 # Bowel Movements 2 General Appearance: Alert, Oriented X3, Cooperative, No acute distress Lungs: Clear to auscultation, Normal air movement Cardiovascular: Regular rate, Normal S1, Normal S2, No murmurs Abdomen: Normal bowel sounds, Soft, No tenderness Extremities: No edema Medications Current Medications Medications Dose Ordered Sig/Davey Route Start Time Stop Time Status Last Admin Dose Admin Ondansetron HCl 4 mg Q4HP PRN IV 10/01/24 15:15 Enoxaparin Sodium 40 mg DAILY SC 10/02/24 10:00 10/05/24 09:50 40 MG Acetaminophen 650 mg Q6HP PRN PO 10/01/24 15:15 10/03/24 14:29 650 MG Diagnostic Test (Pha) 1 strip ACHS 10/01/24 17:00 10/05/24 11:04 1 STRIP Insulin Human Regular ACHS SC 10/01/24 17:00 10/01/24 20:12 3 UNITS Dextrose 50 ml UD PRN IV 10/01/24 15:15 Pregabalin 75 mg BID PO 10/01/24 22:00 10/05/24 09:49 75 MG Atorvastatin Calcium 40 mg DAILY PO 10/02/24 10:00 10/05/24 09:47 40 MG Patient Own Medication 1 tab DAILY PO 10/02/24 10:00 Buspirone HCl 10 mg BID PO 10/01/24 22:00 10/05/24 09:49 10 MG EZETIMIBE 10 mg DAILY PO 10/02/24 10:00 10/05/24 09:46 10 MG Pantoprazole Sodium 40 mg DAILY IV 10/02/24 10:00 10/05/24 09:50 40 MG Amitriptyline HCl 100 mg HS PO 10/02/24 22:00 10/04/24 21:59 100 MG Duloxetine HCl 60 mg HS PO 10/02/24 22:00 10/04/24 21:59 60 MG Oxycodone/ Acetaminophen 1 tab Q6HP PRN PO 10/02/24 13:15 10/04/24 14:49 1 TAB Oxycodone/ Acetaminophen 2 tab Q6HP PRN PO 10/02/24 13:15 10/05/24 09:48 2 TAB Lisinopril 10 mg DAILY PO 10/05/24 10:00 10/05/24 09:47 10 MG Hydralazine HCl 10 mg Q6HP PRN IV 10/04/24 15:30 Loratadine 10 mg DAILY PO 10/05/24 10:00 10/05/24 09:49 10 MG Diphenhydramine HCl 25 mg Q6HP PRN PO 10/04/24 16:15 10/05/24 00:02 25 MG Laboratory Results Laboratory Tests 10/02/24 07:25 Urinalysis Test 10/01/24 15:51 Urine Color Light-yellow (Yellow) Urine Clarity Clear (Clear) Urine pH 7.0 (5.0-9.0) Urine Specific [place] 1.007 (1.001-1.035) Urine Protein Negative (Negative) Urine Ketones Negative (Negative) Urine Blood Negative /uL (Negative) Urine Nitrite Negative (Negative) Urine Bilirubin Negative (Negative) Urine Urobilinogen Normal mg/dL (Negative) Urine Leukocyte Esterase Negative /uL (Negative) Urine RBC <1 /hpf (0 - 4) Urine Microscopic WBC < 1 /HPF (0-5) Urine Squamous Epithelial Cells Few /hpf (<5) Urine Bacteria Few /hpf (None Seen) H Urine Glucose Normal mg/dL (Normal) Assessment/Plan Assessment/Plan Generalized weakness COPD Chronic respiratory failure on home O2 Type 2 diabetes Morbid obesity Chronic low back pain Mild chronic anemia Elevated troponin, no significance Anxiety HTN Plan Imaging studies of the knees and chest and CT of the head and x-ray of the toes were negative for any fracture Order physical therapy Pain control as needed with Percocet which she takes at home Continue Lyrica which is pregabalin Controlled diabetes with a sliding scale regular insulin Continue home meds including Cymbalta Buspirone Lipitor Amitriptyline Buspirone Oxygen Full code Advance directives discussed for 21 minutes 10/03/2024: Continue current management Physical therapy She might need to go to SNF for rehab if she qualifies Monitor closely 10/04/24: HTN: Start lisinopril, prn hydralazine Weakness: PT Anxiety CLBP Obesity Arrange SNF 10/05/2024: Hypertension: Better controlled Weakness: Continue PT, discharge to SNF once a bed is available Itching and skin rash: Give Atarax p.r.n. 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
[2024-10-05] MEDS: TRIAMCINOLONE ACET0.5% TOPICAL CRE 15GM TOP SCH (14:57)
[2024-10-05] MEDS: hydrOXYzine HCL 10 MG TAB PO PRN (14:58)
[2024-10-06 01:00] VITALS: BP 124/75; PULSE 81; RESP 19; TEMP 97.6; O2SAT 92
[2024-10-06 05:00] VITALS: BP 114/54; PULSE 74; RESP 18; TEMP 98; O2SAT 97
[2024-10-06 08:00] VITALS: PULSE 79
[2024-10-06 09:02] VITALS: BP 122/77; PULSE 76; RESP 22; TEMP 97.3; O2SAT 94
--- NOTE | 2024-10-06 11:21 | DVHDS2 ---
Discharge Summary Date of Admission October 01, 2024 at 15:15 Date of Discharge: October 06, 2024 Labs/Diagnostic Data: Laboratory Results Test 10/05/24 11:00 10/03/24 12:58 10/02/24 07:25 10/01/24 15:51 POC Glucose 127 mg/dl (70-106) Blood Gas Specimen Type Arterial Blood Gas Sample Site Right radial Blood Gas Patient Temperature 37.0 Arterial Blood Date Drawn [id number] Arterial Blood pH 7.335 (7.350-7.450) Arterial Blood Partial Pressure CO2 59.8 mmHg (32.0-45.0) Arterial Blood Partial Pressure O2 93.3 mmHg (83.0-108.0) Arterial Blood HCO3 31.2 mmol/L (21.0-28.0) Arterial Blood Oxygen Saturation 96.2 % (94.0-98.0) Arterial Blood Base Excess 3.9 mmol/L (-2.0-3.0) Arterial Blood Oxyhemoglobin 95.5 % (94.0-98.0) Arterial Blood Carboxyhemoglobin 0.4 % (0.5-1.5) Arterial Blood Methemoglobin 0.3 % (0.0-1.5) Eliud Test Yes Blood Gas Total Hemoglobin 12.40 g/dL (12.0-16.0) Blood Gas Modality Nasal cannula FiO2 % 28.0 White Blood Count 4.8 10^3/uL (4.4-10.8) Red Blood Count 4.13 10^6/uL (4.0-5.20) Hemoglobin 12.1 g/dL (12.2-16.2) Hematocrit 36.3 % (36.0-46.0) Mean Corpuscular Volume 87.9 fL (80.0-100.0) Mean Corpuscular Hemoglobin 29.3 pg (28.0-32.0) Mean Corpuscular Hemoglobin Concent 33.3 g/dL (32.0-36.0) Red Cell Distribution Width 15.1 % (11.8-14.3) Platelet Count 236 10^3/uL (140-450) Mean Platelet Volume 7.0 fL (6.9-10.8) Neutrophils (%) (Auto) 54.5 % (37.0-80.0) Lymphocytes (%) (Auto) 33.2 % (10.0-50.0) Monocytes (%) (Auto) 7.0 % (0.0-12.0) Eosinophils (%) (Auto) 4.2 % (0.0-7.0) Basophils (%) (Auto) 1.1 % (0.0-2.0) Neutrophils # (Auto) 2.6 10 ^3/uL (1.6-8.6) Lymphocytes # (Auto) 1.6 10 ^3/uL (0.4-5.4) Monocytes # (Auto) 0.3 10 ^3/uL (0-1.3) Eosinophils # (Auto) 0.2 10 ^3/uL (0-0.8) Basophils # (Auto) 0.1 10 ^3/uL (0-0.2) Nucleated Red Blood Cells 0.2 % Sodium Level 143 mmol/L (136-145) Potassium Level 3.9 mmol/L (3.5-5.1) Chloride Level 104 mmol/L (98-107) Carbon Dioxide Level 32 mmol/L (20-31) Anion Gap 7 (5-15) Blood Urea Nitrogen 16 mg/dL (9-23) Creatinine 0.77 mg/dL (0.550-1.02) Glomerular Filtration Rate Calc 86 mL/min (>90) BUN/Creatinine Ratio 20.8 (10.0-20.0) Serum Glucose 101 mg/dL (74-106) Calcium Level 9.3 mg/dL (8.7-10.4) Total Bilirubin 0.3 mg/dL (0.2-1.0) Aspartate Amino Transferase (AST) 25 U/L (13-40) Alanine Aminotransferase (ALT) 12 U/L (7-40) Alkaline Phosphatase 120 U/L (46-116) Total Protein 6.8 g/dL (5.7-8.2) Albumin 4.3 g/dL (3.2-4.8) Urine Color Light-yellow (Yellow) Urine Clarity Clear (Clear) Urine pH 7.0 (5.0-9.0) Urine Specific [place] 1.007 (1.001-1.035) Urine Protein Negative (Negative) Urine Ketones Negative (Negative) Urine Blood Negative /uL (Negative) Urine Nitrite Negative (Negative) Urine Bilirubin Negative (Negative) Urine Urobilinogen Normal mg/dL (Negative) Urine Leukocyte Esterase Negative /uL (Negative) Urine RBC <1 /hpf (0 - 4) Urine Microscopic WBC < 1 /HPF (0-5) Urine Squamous Epithelial Cells Few /hpf (<5) Urine Bacteria Few /hpf (None Seen) Urine Glucose Normal mg/dL (Normal) Urine Opiates Screen Neg (NEGATIVE) Urine Fentanyl Screen Neg (NEGATIVE) Urine Barbiturates Screen Neg (NEGATIVE) Urine Phencyclidine Screen Neg (NEGATIVE) Urine Amphetamines Screen Neg (NEGATIVE) Urine Benzodiazepines Screen Neg (NEGATIVE) Urine Cocaine Screen Neg (NEGATIVE) Urine Cannabinoids Screen Neg (NEGATIVE) Test 10/01/24 14:19 10/01/24 11:13 Troponin I High Sensitivity 42 ng/L (</=34) Hemoglobin A1c 6.2 % A1C (<5.7) Lactic Acid Level 1.4 mmol/L (0.4-2.0) Magnesium Level 2.0 mg/dL (1.6-2.6) Thyroid Stimulating Hormone (TSH) 2.34 uIU/mL (0.55-4.78) Other Laboratory Tests 10/02/24 07:25 Brief Hx & Hospital Course: Final diagnoses: Generalized weakness COPD Chronic respiratory failure on home O2 Type 2 diabetes Morbid obesity Chronic low back pain Mild chronic anemia Elevated troponin, no significance Anxiety HTN 64-year-old female came with a chief complaint of generalized weakness She says she suddenly lost her strength in a her whole-body for about a week now She takes Percocet at home for chronic low back pain She has COPD and she is on home O2 Workup with x-rays of the both knees and chest x-ray and CT scan of the head were negative Because of the weakness physical therapy saw the patient and recommended SNF for physical therapy Was complaining of itching in her back and legs and was given hydroxyzine and a steroid cream for the rash She also had a stye of the left eye, use warm compresses as needed The patient is stable for discharge Discharge to SNF for rehab Condition at Discharge: Stable Final Diagnosis/Problems List Generalized weakness COPD Chronic respiratory failure on home O2 Type 2 diabetes Morbid obesity Chronic low back pain Mild chronic anemia Elevated troponin, no significance Anxiety HTN Discharge Disposition: [facility] SNF Discharge Will this Physician continue t: No Discharge Statement: "Patient was advised to return to the ER or call 911 if any headaches, dizziness, shortness of breath, chest pain, abdominal pain, bleeding, fevers, or worsening of medical condition. Patient was counseled about treatment plan, medications, possible side effects, patientverbalized understanding. All questions were answered to the best of my ability. This discharge took greater then 30 minutes in planning, reviewing documentation, counseling the patient, and discussing with other team members." ASSESSMENT ASSESSMENT Assessment Date of Service: October 06, 2024 Billing Provider: GORDO PINEDA MD Common Visit Codes: [id number] DISCH DAY >30min GORDO PINEDA MD October 06, 2024 11:21
[2024-10-06 13:00] VITALS: BP 159/74; PULSE 78; RESP 17; TEMP 98.2; O2SAT 98
== END 2024-10-06 13:56 | DRG 558 ==
LOC: EDBD 10:36 → ER 10:36 → OVERFLOW 15:15 → TELE-EAST 20:25
PROVIDERS: ADMIT Internal Medicine Geriatric Medicine; ATTEND Internal Medicine Geriatric Medicine
DX: M76.891 Other specified enthesopathies of right lower limb, excluding foot (principal); J96.11 Chronic respiratory failure with hypoxia; R53.1 Weakness; D64.9 Anemia, unspecified; E66.01 Morbid (severe) obesity due to excess calories; G89.29 Other chronic pain; M54.50 Low back pain, unspecified; F41.9 Anxiety disorder, unspecified; I10 Essential (primary) hypertension; E78.5 Hyperlipidemia, unspecified; R29.6 Repeated falls; R79.89 Other specified abnormal findings of blood chemistry; E11.40 Type 2 diabetes mellitus with diabetic neuropathy, unspecified; J43.9 Emphysema, unspecified; Z99.81 Dependence on supplemental oxygen; Z71.6 Tobacco abuse counseling; Z98.84 Bariatric surgery status; Z68.39 Body mass index [BMI] 39.0-39.9, adult; M76.892 Other specified enthesopathies of left lower limb, excluding foot; M11.261 Other chondrocalcinosis, right knee
CPT/HCPCS: 36415; 36600; 70450; 71045; 73562; 73660; 80053; 80307; 81001; 82805; 82962; 83036; 83605; 83735; 84443; 84484; 85025; 93306; 97110; 97116; 97163; 97530; G0378; J1815; J2470

== ENCOUNTER 2025-04-11 21:05 | Inpatient (IN) | payer MEDICARE, MEDICAID ==
[~2025-04-11] VITALS: Ht 162.6 cm; Wt 107.0 kg
[~2025-04-11 21:05] MED LIST changes: -AZIT500T66 PO; +BUSP10TA31 PO; -CEPH-510 PO; +EZET-10 PO; -PRED20TA2 PO
--- NOTE | 2025-04-11 22:51 | ED.PDOC ---
History of Present Illness HPI Comments 64 y/o morbidly obese F presents with c/c of right leg pain s/p mechanica fall and injury on 04/08/25. Patient reports on landing and injuring her right leg after her walker slipped out underneath her, while walking. Patient reports on sustaining a laceration to said leg as well but reports on having it repaired at another facility that same day on 04/08/25, with instructions to see a surgeon due to tendon injury. Since then, patient has had trouble ambulating. She denies any further acute symptoms. Patient also states shortness of breath reports chronic history of COPD she does note increasing shortness of breath over the past several days reports history of COPD exacerbations and admitted in the past also pneumonia. Denies chest pain, or difficulty breathing reports no fever or chills Chief Complaint: Lower Extremity Time Seen by MD: 10:30 Primary Care Provider: Victor Manuel Rivera Notes: Nurses Notes, Medications, Allergies Allergies: Coded Allergies: NO KNOWN ALLERGIES (Unverified , 09/04/13) Home Meds Reported Medications Buspirone HCl (Buspirone HCl) 10 Mg Tab, 1 TAB PO BID 10/01/24 Ezetimibe (Ezetimibe) 10 Mg Tab, 1 TAB PO DAILY 10/01/24 Atorvastatin Calcium (ATORVASTATIN CALCIUM) 40 Mg Tab, 1 TAB PO DAILY, #30 TAB 5 Refills 04/05/24 Oxycodone W/ Acetaminophen (Percocet 5/325MG) 1 Tab Tb, 1 TAB PO, #120 TAB 04/05/24 Pregabalin (Pregabalin) 75 Mg Cap, 1 CAP PO BID 04/05/24 Amitriptyline HCl (Amitriptyline Hydrochlori) 100 Mg Tab, 1 TAB PO DAILY 04/05/24 Duloxetine HCl (Duloxetine HCl) 60 Mg Cap, 1 CAP PO DAILY 04/05/24 Upadacitinib (Rinvoq) 15 Mg Tab, 1 TAB PO DAILY 04/05/24 Information Source: Patient Mode of Arrival: Wheelchair Severity: Moderate Timing: Hours Duration: Since onset Prehospital treatment: None Past Medical History PAST MEDICAL HISTORY: Anxiety, Arthritis, CKF, COPD, High Lipids Surgical History: Tubal Ligation 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: Ectopic , Ovarian Cysts Family History Family History: No family hx of DM, No family hx of Lung piedad, Family hx of heart piedad Family History (Other): Obesity Social History Smoker: Quit Less Than 1 Year, Cigarettes Alcohol: Rarely Drugs: Denies Drug Use Lives In: Home All Other Systems: Reviewed and Negative (As per HPI) Physical Exam General Appearance: No Apparent Distress, Obese HEENT: Normal ENT Inspection, Pharynx Normal, TMs Normal Neck: Full Range of Motion, Non-Tender Respiratory: Decreased Breath Sounds, No Respiratory Distress, Rhonchi Cardiovascular: No Edema, No JVD, No Murmur, No Gallop, Normal Peripheral Pulses, Regular Rate/Rhythm Breast Exam: Deferred Gastrointestinal: No Organomegaly, Non Tender, No Pulsatile Mass, Normal Bowel Sounds, Soft Genitalia: Deferred Pelvic: Deferred Rectal: Deferred Extremities: Normal capillary refill, Normal range of motion, Pedal edema (TRACE BILATERAL) Musculoskeletal : Location: Right Extremity Location: Knee (KNEE BRACE INTACT. POSITIVE PEDAL PULSE) Apperance: Normal Neurologic: Alert, No Motor Deficits, Normal Affect, Normal Mood, No Sensory Deficits Cerebellar Function: Normal Reflexes: NOT DONE Skin: Dry, Normal Color, Warm Lymphatic: No Adenopathy Was a procedure done? Was a procedure done?: No Differential Dx Considerations may include: fractures, contusions, dislocation, sprain, strain, neurovascular injury, among others X-Ray, Labs, Meds, VS Vital Signs Date Time Temp Pulse Resp B/P (MAP) Pulse Ox O2 Delivery O2 Flow Rate FiO2 04/12/25 00:30 98.1 79 20 100/79 (86) 91 98.1 04/12/25 00:30 79 20 91 Nasal Cannula 2.0 04/11/25 21:08 97.2 95 20 95 97.2 Lab Test 04/12/25 00:42 Range/Units White Blood Count 7.0 4.4-10.8 10^3/uL Red Blood Count 3.87 L 4.0-5.20 10^6/uL Hemoglobin 10.9 L 12.2-16.2 g/dL Hematocrit 33.9 L 36.0-46.0 % Mean Corpuscular Volume 87.6 80.0-100.0 fL Mean Corpuscular Hemoglobin 28.3 28.0-32.0 pg Mean Corpuscular Hemoglobin Concent 32.3 32.0-36.0 g/dL Red Cell Distribution Width 16.6 H 11.8-14.3 % Platelet Count 203 140-450 10^3/uL Mean Platelet Volume 7.1 6.9-10.8 fL Neutrophils (%) (Auto) 68.1 37.0-80.0 % Lymphocytes (%) (Auto) 19.1 10.0-50.0 % Monocytes (%) (Auto) 10.2 0.0-12.0 % Eosinophils (%) (Auto) 2.2 0.0-7.0 % Basophils (%) (Auto) 0.4 0.0-2.0 % Neutrophils # (Auto) 4.8 1.6-8.6 10 ^3/uL Lymphocytes # (Auto) 1.3 0.4-5.4 10 ^3/uL Monocytes # (Auto) 0.7 0-1.3 10 ^3/uL Eosinophils # (Auto) 0.2 0-0.8 10 ^3/uL Basophils # (Auto) 0 0-0.2 10 ^3/uL Nucleated Red Blood Cells 0.1 % Prothrombin Time 10.0 9.3-11.8 sec Prothrombin Time INR 0.94 0.9-1.15 Activated Partial Thromboplast Time 24.6 24.5-34.5 SEC Sodium Level 143 136-145 mmol/L Potassium Level 4.0 3.5-5.1 mmol/L Chloride Level 108 H 98-107 mmol/L Carbon Dioxide Level 30 20-31 mmol/L Anion Gap 5 5-15 Blood Urea Nitrogen 16 9-23 mg/dL Creatinine 0.89 0.550-1.02 mg/dL Glomerular Filtration Rate Calc 72 >90 mL/min BUN/Creatinine Ratio 18.0 10.0-20.0 Serum Glucose 74 74-106 mg/dL Calcium Level 9.2 8.7-10.4 mg/dL Total Bilirubin 0.2 0.2-1.0 mg/dL Aspartate Amino Transferase (AST) 26 13-40 U/L Alanine Aminotransferase (ALT) 23 7-40 U/L Alkaline Phosphatase 111 46-116 U/L B-Type Natriuretic Peptide 88.57 0-100 pg/mL Total Protein 6.6 5.7-8.2 g/dL Albumin 4.3 3.2-4.8 g/dL X-Ray, Labs, Meds, VS Comment (Patient presented with increasing shortness of breath history of COPD currently on oxygen. Patient also presented with right knee tendon tear. Social service concerns with inability to perform her ADLs due to her injury. 1. I ordered and reviewed the result of at least 2 labs including a CBC, CMP 2. I independently interpreted the following tests: CHEST X-RAY SHOWS BILATERAL PLEURAL EFFUSIONS. Risk: This patient has a high risk of morbidity due to further diagnostic testing or treatment and may suffer from an acute respiratory process disorder, and/or fall due to her recent right knee injury. patient should be admitted for further workup, MRI of right knee, certified social workers in health care consult and respiratory consult. Images Reviewed?: Images reviewed and evaluated by me Time of 1ST Reevaluation: 11:00 Reevaluation 1ST: Unchanged Time of 2ND Reevaluation: 01:35 Reevaluation 2ND: Unchanged Patient Education/Counseling: Diagnosis, Treatment Family Education/Counseling: No Family Present SEPSIS Sepsis Screen Date sepsis recognized/suspect: Apr 11, 2025 Time Sepsis recognized/suspect: 2111 Recent Procedure: No On Antibiotic Therapy: No Respiratory Rate >20: No Heart Rate >90: Yes Temp<36 C (96.8 F) or >38.3 C: No SBP <90 or MAP <65 mmHG: No New Acute Mental Status Change: No Is the patient on CPAP, BIPAP,: No Physician Orders Chest Portable (04/12/25 00:23) Heplock Iv (04/12/25 ) Vital Signs Date Time Temp Pulse Resp B/P (MAP) Pulse Ox O2 Delivery O2 Flow Rate FiO2 04/12/25 00:30 98.1 79 20 100/79 (86) 91 98.1 04/12/25 00:30 79 20 91 Nasal Cannula 2.0 04/11/25 21:08 97.2 95 20 95 97.2 Laboratory Tests Test 04/12/25 00:42 White Blood Count 7.0 10^3/uL (4.4-10.8) Departure 1 Departure Time of Disposition: 01:07 Impression: Primary Impression: Bilateral pleural effusion Additional Impressions: COPD exacerbation Complete tear of ligament of knee Disposition: ADMITTED INPATIENT Condition: Stable Discharged With: Self Critical Care Note Critical Care Time?: No Stability Stability form required: No Heart Score Heart Score: Heart Score Response (Comments) Value History N/A 0 EKG N/A 0 Age N/A 0 Risk Factors N/A 0 Troponin N/A 0 Total 0 I personally scribed for ER ([email or web address]) on 04/11/25 at 22:51. Electronically submitted by Yony Castro [email or web address]). ER Apr 11, 2025 22:51 ABBEY ZHANG ROOF BOLTER OPERATOR Apr 12, 2025 00:35
[2025-04-12] VITALS (7 sets, daily range): BP systolic 123; BP diastolic 62; PULSE 82–91; RESP 18–19; TEMP 98.1; O2SAT 91–100
[2025-04-12 00:50] LABS: Hematocrit 33.9 % (36.0-46.0); Hemoglobin 10.9 g/dL (12.2-16.2); Mean Corpuscular Hemoglobin 28.3 pg (28.0-32.0); Mean Corpuscular Volume 87.6 fL (80.0-100.0); Nucleated Red Blood Cells % 0.1 %
--- NOTE | 2025-04-12 00:58 | DVH ---
CHEST RADIOGRAPH Indication: Shortness of breath Technique: Single frontal view of the chest was obtained COMPARISON: XY CHEST PORTABLE on DOS: 10/01/24, XY CHEST PORTABLE on DOS: 04/04/24, XY CHEST PORTABLE on DOS: 10/01/22 FINDINGS: Cardiac silhouette is borderline in size. Probable trace bilateral pleural effusions with mild bibasilar atelectatic changes. Minimal prominence of the pulmonary vasculature. Bones and soft tissues demonstrate no significant abnormality. IMPRESSION: Borderline cardiomegaly with pulmonary venous congestion and probable trace bilateral pleural effusions
[2025-04-12 01:09] LABS: Alanine Aminotransferase 23 U/L (7-40); Albumin 4.3 g/dL (3.2-4.8); Alkaline Phosphatase 111 U/L (46-116); Anion Gap 5 (5-15); BUN/Creatinine Ratio 18.0 (10.0-20.0); Blood Urea Nitrogen 16 mg/dL (9-23); Calcium 9.2 mg/dL (8.7-10.4); Carbon Dioxide 30 mmol/L (20-31); Glucose 74 mg/dL (74-106); Potassium 4.0 mmol/L (3.5-5.1); Sodium 143 mmol/L (136-145); Total Protein 6.6 g/dL (5.7-8.2)
[2025-04-12 01:10] LABS: Bilirubin, Total 0.2 mg/dL (0.2-1.0); Chloride 108 mmol/L (98-107)
--- NOTE | 2025-04-12 01:15 | DVHHPRES ---
History of Present Illness Resident Creating Document: FABRICIO NGUYEN RESIDENT History of Present Illness Ms Pauline Wong, at 64-year-old female neuropathy, COPD on home oxygen and BiPAP, IBS presented to the ER followed by fall 3 days back on sharp concrete and deep laceration below right knee. She reports having 8/10 pain even after having Percocet. She also reports having sore throat, nonproductive cough. She denies any chest pain, shortness of breath or any other complaints. Past medical history: As above Past surgical history: None Smokin pack year, no alcohol or drugs Allergies: None Home medications: Ezetimibe, pregabalin PCP:Dr. Wheeler Review of Systems Allergies: Coded Allergies: NO KNOWN ALLERGIES (Unverified , 09/04/13) Exam Vital Signs Vital Signs Date Time Temp Pulse Resp B/P (MAP) Pulse Ox O2 Delivery O2 Flow Rate FiO2 04/12/25 00:30 98.1 79 20 100/79 (86) 91 98.1 04/12/25 00:30 Nasal Cannula 2.0 Exam Pt is lying on bed General Appearance: Alert, Oriented X3, Cooperative, Mild distress HEENT: Atraumatic, Mucous membranes moist/pink Respiratory: Wheezing, Normal air movement, No added sounds Cardiovascular: Regular rate, Normal S1, Normal S2, No murmurs Abdominal/ : Active bowel sounds, Soft, no distention, no tenderness Extremities: Deep laceration below knee, orthopedic cast placed Skin: No Significant rash, except past surgical scars Neuro: Normal speech, sensorimotor deficits none Psych/Mental Status: Mental status NL, Mood NL Nurse was there as exchange floor manager during examination Labs/Xrays Labs Test 04/12/25 00:42 Range/Units White Blood Count 7.0 4.4-10.8 10^3/uL Red Blood Count 3.87 L 4.0-5.20 10^6/uL Hemoglobin 10.9 L 12.2-16.2 g/dL Hematocrit 33.9 L 36.0-46.0 % Mean Corpuscular Volume 87.6 80.0-100.0 fL Mean Corpuscular Hemoglobin 28.3 28.0-32.0 pg Mean Corpuscular Hemoglobin Concent 32.3 32.0-36.0 g/dL Red Cell Distribution Width 16.6 H 11.8-14.3 % Platelet Count 203 140-450 10^3/uL Mean Platelet Volume 7.1 6.9-10.8 fL Neutrophils (%) (Auto) 68.1 37.0-80.0 % Lymphocytes (%) (Auto) 19.1 10.0-50.0 % Monocytes (%) (Auto) 10.2 0.0-12.0 % Eosinophils (%) (Auto) 2.2 0.0-7.0 % Basophils (%) (Auto) 0.4 0.0-2.0 % Neutrophils # (Auto) 4.8 1.6-8.6 10 ^3/uL Lymphocytes # (Auto) 1.3 0.4-5.4 10 ^3/uL Monocytes # (Auto) 0.7 0-1.3 10 ^3/uL Eosinophils # (Auto) 0.2 0-0.8 10 ^3/uL Basophils # (Auto) 0 0-0.2 10 ^3/uL Nucleated Red Blood Cells 0.1 % Sodium Level 143 136-145 mmol/L Potassium Level 4.0 3.5-5.1 mmol/L Chloride Level 108 H 98-107 mmol/L Carbon Dioxide Level 30 20-31 mmol/L Anion Gap 5 5-15 Blood Urea Nitrogen 16 9-23 mg/dL Creatinine 0.89 0.550-1.02 mg/dL Glomerular Filtration Rate Calc 72 >90 mL/min BUN/Creatinine Ratio 18.0 10.0-20.0 Serum Glucose 74 74-106 mg/dL Calcium Level 9.2 8.7-10.4 mg/dL Total Bilirubin 0.2 0.2-1.0 mg/dL Aspartate Amino Transferase (AST) 26 13-40 U/L Alanine Aminotransferase (ALT) 23 7-40 U/L Alkaline Phosphatase 111 46-116 U/L Total Protein 6.6 5.7-8.2 g/dL Albumin 4.3 3.2-4.8 g/dL SEPSIS Sepsis Screen Date sepsis recognized/suspect: Apr 11, 2025 Time Sepsis recognized/suspect: 2111 Recent Procedure: No On Antibiotic Therapy: No Respiratory Rate >20: No Heart Rate >90: Yes Temp<36 C (96.8 F) or >38.3 C: No SBP <90 or MAP <65 mmHG: No New Acute Mental Status Change: No Is the patient on CPAP, BIPAP,: No Physician Orders Chest Portable (04/12/25 00:23) Vital Signs Date Time Temp Pulse Resp B/P (MAP) Pulse Ox O2 Delivery O2 Flow Rate FiO2 04/12/25 00:30 98.1 79 20 100/79 (86) 91 98.1 04/12/25 00:30 79 20 91 Nasal Cannula 2.0 04/11/25 21:08 97.2 95 20 95 97.2 Laboratory Tests Test 04/12/25 00:42 White Blood Count 7.0 10^3/uL (4.4-10.8) Assessment/Plan Assessment/Plan Patellar fracture -injection Toradol -Right knee x-ray: Patellar fracture -orthopedics consulted Acute on chronic hypoxic respiratory failure COPD exacerbation Pneumonia likely due to Gram-positive or Gram-negative organism -CXR: Pleural effusion -IV azithromycin -breathing treatments albuterol and ipratropium med nebs -BiPAP Dyslipidemia -ezetimibe Smoking: -Smoking cessation -Nicotine patch Ob did not work for the patient, patient is willing to quit -Consider Varenicline Neuropathy -pregabalin GI prophylaxis: Pantoprazole DVT prophylaxis: Lovenox Diet: Cardiac Goals of care discussed with the patient for more than 27 minutes: Full code status Case discussed with Dr. Becerril, patient and RN Plan discussed with: Patient, Daughter, Other (RN) FABRICIO NGUYEN RESIDENT Apr 12, 2025 01:15
[2025-04-12] MEDS ORDERED: ONDANSETRON HCL 4 MG/2 ML VIAL IV PRN (01:45)
[2025-04-12 02:14] LABS: INR 0.94 (0.9-1.15); Partial Thromboplastin Time 24.6 SEC (24.5-34.5); Prothrombin Time 10.0 sec (9.3-11.8)
[2025-04-12] MEDS: ALBUTEROL SULF 2.5 MG/0.5ML(0.5%) NEB SOLN NEB ONE (02:28)
--- NOTE | 2025-04-12 02:30 | DVH ---
CLINICAL INDICATION: Deep laceration TECHNIQUE: XY R KNEE 2V XRAY Comparison: XY L KNEE 3V XRAY on DOS: 10/01/24, XY R KNEE 3V XRAY on DOS: 10/01/24 FINDINGS/IMPRESSION: : Cortical irregularity at the level of the distal patellar tendon insertion as well as superiorly adjacent to the fibular head may represent minimally displaced fracture. There is no evidence of acute dislocation. Soft tissues are unremarkable.
[2025-04-12] MEDS: KETOROLAC TROMETH 30 MG/ML 1ML VIAL IV ONE (02:43)
[2025-04-12] MEDS: FUROSEMIDE 20 MG/2 ML VIAL IV ONE (02:44)
[2025-04-12] MEDS: SODIUM CHLORIDE 0.9% 1,000 ML IV SCH (02:45)
[2025-04-12] MEDS ORDERED: IPRATROPIUM BROM 0.5 MG/2.5ML INH SOL NEB SCH (06:00)
[2025-04-12] MEDS: SODIUM CHLOR 0.9% PF (SALINE LOCK) 10ML VIAL/SYR IV SCH (06:09)
[2025-04-12] MEDS: HYDROcodone-ACET 5/325MG TAB PO PRN (06:53)
[2025-04-12] MEDS: AZITHROMYCIN 500MG/250ML 250 ML IV SCH (07:33)
[2025-04-12] MEDS: PREGABALIN CAPSULE 75 MG CAP PO SCH (07:33)
[2025-04-12] MEDS: ENOXAPARIN SOD 40 MG/0.4 ML SYRINGE SC SCH (07:34)
[2025-04-12] MEDS: EZETIMIBE 10 MG TAB PO SCH (08:01)
[2025-04-12] MEDS: FUROSEMIDE 20 MG/2 ML VIAL IV SCH (11:33)
[2025-04-12 11:42] LABS: Urine Protein, UAD Negative (Negative)
--- NOTE | 2025-04-12 11:44 | DVHPNRES ---
Progress Note Date Seen: Apr 12, 2025 Resident Creating Document: ADOLFO ABREU RESIDENT Medical Necessity Reason Pt with a Central, PICC or Fol: No Subjective Review of Systems Patient is a 64-year-old female with a past medical history of fibromyalgia, COPD/emphysema, IBS, HLD, who presented to [facility] ED following a fall three days ago on sharp concrete, resulting in a deep laceration below the right knee. The patient reports that three days ago she fell on concrete while ambulating with her walker. The walker wheels struck a raised lip, causing her knee to hit the ground, followed by her hands, and finally her face. She was transported by ambulance to [facility] ED, where the lacerations were sutured. ED staff recommended urgent follow-up with an orthopedic surgeon. The patients daughter states that the patient cannot care for herself at home, has difficulty walking, and may require placement back at [facility]. The patient also reports severe chronic neuropathy in her hands and feet, with numbness and tingling. Past medical history: Neuropathy, fibromyalgia, COPD/emphysema, on home oxygen 2-2.5L and BiPAP, IBS, HLD Past surgical history: None Smokin pack year, no alcohol or drugs Allergies: None Home medications: Ezetimibe, pregabalin PCP: Dr. Wheeler Patient seen and examined at bedside. Patient is alert and oriented to time, place person and responding to all questions. Eyes: No Pain, No Vision change, No Conjunctivae inflammation, No Eyelid inflammation, No Other, No Redness ENT: No Ear pain, No Ear discharge, No Nose pain, No Nose discharge, No Nose congestion, No Mouth pain, No Mouth swelling, No Throat pain, No Throat swelling, No Other Cardiovascular: No Chest Pain, No Palpitations, No Orthopnea, No Paroxysmal No Dyspnea, No Edema, No Lt Headedness, No Other Respiratory: Cough, No Dry, Shortness of breath, SOB with exertion, Wheezing, No Hemoptysis, No Pleuritic Pain, No Sputum, No Other Gastrointestinal: No Nausea, No Vomiting, No Abdominal Pain, No Diarrhea, No Constipation, No Melena, No Hematochezia, No Other Genitourinary: No Dysuria, No Frequency, No Incontinence, No Hematuria, No Retention, No Other Musculoskeletal: No other, No neck pain, No shoulder pain, No arm pain, No back pain, No hand pain, knee pain, leg pain, No foot pain Skin: No Rash, No Lesions, No Jaundice, No Bruising, No Other Objective vital signs Vital Sign Date Time Temp Pulse Resp B/P (MAP) Pulse Ox O2 Delivery O2 Flow Rate FiO2 04/12/25 11:33 150/76 04/12/25 11:30 98.2 85 18 94 98.2 04/12/25 03:00 2.0 28 04/12/25 02:28 Nasal Cannula* Total Intake and Output 04/11/25 04/11/25 04/12/25 15:00 23:00 07:00 Intake Total 120 ml Balance 120 ml medications Current Medications Medications Dose Ordered Sig/Davey Route Start Time Stop Time Status Last Admin Dose Admin Sodium Chloride 10 ml Q8HR IV 04/12/25 06:00 04/12/25 06:09 10 ML Acetaminophen/ Hydrocodone Bitart 1 tab Q4HP PRN PO 04/12/25 01:45 04/12/25 11:42 1 TAB Ondansetron HCl 4 mg Q4HP PRN IV 04/12/25 01:45 Enoxaparin Sodium 40 mg DAILY SC 04/12/25 10:00 04/12/25 07:34 40 MG Albuterol 2.5 mg Q6HPRN PRN NEB 04/12/25 01:45 Furosemide 20 mg DAILY IV 04/12/25 10:00 04/12/25 11:33 20 MG Ipratropium Byron 0.5 mg Q6HPRN PRN NEB 04/12/25 02:15 Buspirone HCl 10 mg BID PO 04/12/25 10:00 04/12/25 07:33 10 MG EZETIMIBE 10 mg DAILY PO 04/12/25 10:00 04/12/25 08:01 10 MG Pregabalin 75 mg BID PO 04/12/25 10:00 04/12/25 07:33 75 MG Azithromycin 250 ml @ 125 mls/hr DAILY IV 04/12/25 10:00 04/12/25 07:33 125 MLS/HR Examination General Appearance: Cooperative. Well developed. Well nourished. NAD Head Exam: Normal inspection Neck Exam: Normal inspection. Non-tender. Normal alignment Respiratory: Bilateral wheezing, Normal air movement, No added sounds Cardiovascular/Chest: Regular rate and rhythm. No murmurs. No JVD. Peripheral Pulses: 2+ Radial (R). 2+ Radial (L). 2+ Pedal (R). 2+ Pedal (L) Abdominal Exam: Normal bowel sounds. Soft. normal abdomen, no visible veins, Nontender. No hepatospenomegaly. No masses Ankle Exam: Negative ankle edema Lower Extremities: Deep laceration below knee, orthopedic cast placed Neuro/Mental Status: A&O x4. Coherent. Thoughts/Psych: Normal thought pattern. Appropriate mood and affect. Good judgement and insight Skin Exam: Normal inspection. Normal color. Warm. Dry laboratory and microbiology Laboratory Tests 04/12/25 00:42 Test 04/12/25 00:42 Range/Units Serum Glucose 74 74-106 mg/dL Labs and/or images reviewed: Labs reviewed by me, Image(s) reviewed by me Problem List/Assessment/Plan Problem List/Assessment/Plan #Right patellar fracture #Intractable knee pain due to above Knee MRI orderded Right knee x-ray: Cortical irregularity at the level of the distal patellar tendon insertion as well as superiorly adjacent to the fibular head may represent minimally displaced fracture. There is no evidence of acute dislocation. Soft tissues are unremarkable. Orthopedics consulted pain management with [place] injection Toradol once Zofran 4 MG IV q4h Sodium chloride lock 10 ML IV q8h buspirone 10 MG PO bid #Acute on chronic hypoxic respiratory failure #COPD exacerbation #Pneumonia likely due to Gram-positive or Gram-negative organism Echocardiogram (10/02/24): lvef 65% by visual estimate, normal rv function, left atrium enlarged moderate, no severe valve abnormalities noted Chest X-ray: Borderline cardiomegaly with pulmonary venous congestion and probable trace bilateral pleural effusions Azithromycin 240 daily IV breathing treatments albuterol and ipratropium med nebs BiPAP #Active smoker Smoking cessation Nicotine patch Ob did not work for the patient, patient is willing to quit Consider Varenicline I have counseled the patient on the importance of smoking cessation for over 5 minutes. #Peripheral neuropathy Pregabalin 75 MG PO bid #Mixed dyslipidemia Ezetimibe 10 MG PO daily Diet: Cardiac DVT prophylaxis: Lovenox 40mg Goals of care: Full code, discussed for >30 minutes on 04/12/25 Plan discussed with patient Plan discussed with Dr. Tracy Plan discussed with: Patient Date of Service: Apr 12, 2025 Billing Provider: GORDO TRACY MD Common Visit Codes: [id number] INP/OBS CARE(HIGH) ADOLFO ABREU RESIDENT Apr 12, 2025 11:44
--- NOTE | 2025-04-12 16:17 | DVH ---
CLINICAL INDICATION: Patella tendon injury. TECHNIQUE: Multiplanar, multisequence MRI of the right knee was performed without contrast. Contrast: None. COMPARISON: XY R KNEE 2V XRAY on DOS: 04/12/25. FINDINGS: Joint space and synovium: There is trace knee joint effusion. No synovitis. There is a fluid collection between the semimembranosus and medial head of the gastrocnemius measuring 4 cm in craniocaudal dimension consistent with a Acosta's cyst. Bones and articular cartilage: There is no evidence of acute fracture. Mild bone marrow edema in the foci of ossification adjacent to the tibial tubercle likely reflecting sequelae of [place]-Schlatter disease. The alignment is normal. There is full-thickness articular cartilage loss in the patellar apex in the medial patellar facet with bone marrow edema. The articular cartilage in the medial and lateral compartment is maintained. Menisci: There is interstitial degeneration of the posterior horn and body of the medial meniscus. There is a tear of the anterior horn of the lateral meniscus. There is a horizontal tear of the body to posterior junction. Tendons and ligaments: The tendons in the posterior knee are intact. The quadriceps tendon is intact. There is mild T2 hyperintensity in the distal patellar tendon adjacent to foci of ossification adjacent to the tibial tuberosity. The anterior cruciate ligament is intact. The posterior cruciate ligament is intact. The medial collateral ligament and the lateral collateral ligament stabilizing complex are intact. Muscles: Regional muscles are preserved in bulk and signal characteristics. Other: There is circumferential subcutaneous edema in the knee. IMPRESSION: 1. Tear of the anterior horn of the lateral meniscus. 2. Mild bone marrow edema in the foci of ossification adjacent to the tibial tuberosity likely reflecting sequelae of old [place]-Schlatter disease / repetitive microtrauma. 3. Mild distal patellar tendinitis. 4. Patellofemoral osteoarthritis. 5. Interstitial degeneration of the posterior horn and body of the medial meniscus. 6. Acosta's cyst.
[2025-04-12] MEDS: IPRATROPIUM BROM 0.5 MG/2.5ML INH SOL NEB PRN (23:38)
[2025-04-12] MEDS: ALBUTEROL SULF 2.5 MG/0.5ML(0.5%) NEB SOLN NEB PRN (23:38)
[2025-04-13] VITALS (7 sets, daily range): BP systolic 119–152; BP diastolic 62–78; PULSE 78–90; RESP 16–18; TEMP 94.9–98.8; O2SAT 92–96
[2025-04-13] MEDS: MORPHINE SULFATE INJ 2 MG/ml SYRG IV ONE (01:20)
[2025-04-13 06:49] LABS: Hematocrit 32.6 % (36.0-46.0); Hemoglobin 10.7 g/dL (12.2-16.2); Mean Corpuscular Hemoglobin 28.3 pg (28.0-32.0); Mean Corpuscular Volume 86.4 fL (80.0-100.0); Nucleated Red Blood Cells % 0.0 %
[2025-04-13 07:09] LABS: Alanine Aminotransferase 20 U/L (7-40); Albumin 4.0 g/dL (3.2-4.8); Alkaline Phosphatase 104 U/L (46-116); Anion Gap 4 (5-15); BUN/Creatinine Ratio 24.6 (10.0-20.0); Bilirubin, Total 0.4 mg/dL (0.2-1.0); Blood Urea Nitrogen 14 mg/dL (9-23); Calcium 9.1 mg/dL (8.7-10.4); Chloride 105 mmol/L (98-107); Potassium 3.6 mmol/L (3.5-5.1); Sodium 143 mmol/L (136-145); Total Protein 6.3 g/dL (5.7-8.2)
[2025-04-13 07:10] LABS: Carbon Dioxide 34 mmol/L (20-31); Glucose 112 mg/dL (74-106)
--- NOTE | 2025-04-13 13:13 | DVHINCON2 ---
Consult Note Consult Consult Note Reason for Consult: Evaluation of right proximal tibial laceration and right knee injury HISTORY OF PRESENT ILLNESS Pauline Wong is a 64-old female admitted for orthopedic evaluation following a ground-level fall resulting in a right proximal anterior tibial laceration. The patient was initially evaluated at [facility] Emergency Department, where the laceration was irrigated and closed with sutures. She was instructed to follow up at [facility] ER for further orthopedic evaluation and subsequently admitted. Today on orthopedic evaluation, the patient reports right knee pain localized around the proximal tibia but denies any instability symptoms, giving way, or mechanical locking. PHYSICAL EXAM General: Awake, alert, in no acute distress. Right Lower Extremity: Approximately 11 nylon sutures noted over a linear anterior proximal tibial laceration adjacent to the tibial tuberosity. Sutures intact with no drainage, warmth, or erythema. Knee ROM: 0 to 110. SLR: Patient able to perform a straight leg raise against gravity without lagno clinical evidence of patellar tendon rupture. Neurovascular: Sensation intact distally, compartments soft, DP/PT pulses palpable. No calf tenderness. IMAGING / STUDIES xray right knee: Cortical irregularity at the level of the distal patellar tendon insertion as well as superiorly adjacent to the fibular head may represent minimally di splaced fracture. There is no evidence of acute dislocation. Soft tissues are unremarkable. MRI Right Knee: Degenerative medial and lateral meniscus tears Bone marrow edema with foci of ossification adjacent to tibial tuberosity likely post-traumatic Mild distal patellar tendinitis Patellofemoral osteoarthritis Bakers cyst present No evidence of acute patellar tendon disruption ASSESSMENT 1. Right proximal anterior tibial laceration, sutured stable, healing 2. Post-traumatic knee pain with underlying degenerative meniscal tears 3. Bone marrow edema / trauma-related ossification near tibial tuberosity 4. Patellofemoral osteoarthritis 5. Mild distal patellar tendinitis 6. Bakers cyst 7. No evidence of patellar tendon rupture PLAN Continue straight leg brace for protection.WBAT WITH CRUTCHES Follow-up in 1 week for suture removal. At 2 weeks, if pain improves and wound fully healed, transition patient out of straight leg brace and begin gentle range of motion physical therapy. Ice and elevation as needed. Continue weightbearing as tolerated unless otherwise indicated by pain. Neurovascular status remains intact. OUT PATIENT Orthopedics follow UP Plan discussed with: Patient, Other (BEDSIDE NURSE) Visit Coding Surgery Date of Service if different f: Apr 13, 2025 Billing Provider: JOSE DIAS PAC Surgery Visit Codes: [id number] - INP CONSULT <55 MIN JOSE DIAS Apr 13, 2025 13:13
--- NOTE | 2025-04-13 15:41 | DVHPNRES ---
Progress Note Date Seen: Apr 13, 2025 Resident Creating Document: ADOLFO ABREU Medical Necessity Reason Pt with a Central, PICC or Fol: No Subjective Review of Systems Patient is a 64-year-old female with a past medical history of fibromyalgia, COPD/emphysema, IBS, HLD, who presented to [facility] ED following a fall three days ago on sharp concrete, resulting in a deep laceration below the right knee. The patient reports that three days ago she sustained a mechanical fall with no loss of consciousness on concrete while ambulating with her walker. The walker wheels got stuck on the street, causing her knee to hit the ground, followed by her hands, and finally her face. She was transported by ambulance to [facility] ED, where the lacerations were sutured. ED staff recommended urgent follow-up with an orthopedic surgeon. The patients daughter states that the patient cannot care for herself at home, has difficulty walking, and may require placement back at [facility]. The patient also reports severe chronic neuropathy in her hands and feet, with numbness and tingling. On 04/13/25, Patient was seen and examined at bedside. Overnight events were reviewed. Today on evaluation, the patient reports right knee pain localized around the proximal tibia, 7/10 intensity. Patient was evaluated by Orthopedic doctor today. Past surgical history: None Smokin pack year, no alcohol or drugs Allergies: None Home medications: Ezetimibe, pregabalin PCP: Dr. Wheeler Eyes: No Pain, No Vision change, No Conjunctivae inflammation, No Eyelid inflammation, No Other, No Redness ENT: No Ear pain, No Ear discharge, No Nose pain, No Nose discharge, No Nose congestion, No Mouth pain, No Mouth swelling, No Throat pain, No Throat swelling, No Other Cardiovascular: No Chest Pain, No Palpitations, No Orthopnea, No Paroxysmal No Dyspnea, No Edema, No Lt Headedness, No Other Respiratory: Cough, No Dry, Shortness of breath, SOB with exertion, Wheezing, No Hemoptysis, No Pleuritic Pain, No Sputum, No Other Gastrointestinal: No Nausea, No Vomiting, No Abdominal Pain, No Diarrhea, No Constipation, No Melena, No Hematochezia, No Other Genitourinary: No Dysuria, No Frequency, No Incontinence, No Hematuria, No Retention, No Other Musculoskeletal: No other, No neck pain, No shoulder pain, No arm pain, No back pain, No hand pain, knee pain, leg pain, No foot pain Skin: No Rash, No Lesions, No Jaundice, No Bruising, No Other Objective vital signs Vital Sign Date Time Temp Pulse Resp B/P (MAP) Pulse Ox O2 Delivery O2 Flow Rate FiO2 04/13/25 13:00 96.5 78 16 119/62 (81) 96 96.5 04/13/25 10:00 Nasal Cannula 2.0 04/13/25 10:00 28 Total Intake and Output 04/12/25 04/12/25 04/13/25 15:00 23:00 07:00 Intake Total 250 ml Balance 250 ml medications Current Medications Medications Dose Ordered Sig/Davey Route Start Time Stop Time Status Last Admin Dose Admin Sodium Chloride 10 ml Q8HR IV 04/12/25 06:00 04/13/25 14:25 10 ML Acetaminophen/ Hydrocodone Bitart 1 tab Q4HP PRN PO 04/12/25 01:45 04/13/25 12:43 1 TAB Ondansetron HCl 4 mg Q4HP PRN IV 04/12/25 01:45 Enoxaparin Sodium 40 mg DAILY SC 04/12/25 10:00 04/13/25 09:50 40 MG Albuterol 2.5 mg Q6HPRN PRN NEB 04/12/25 01:45 04/12/25 23:38 2.5 MG Furosemide 20 mg DAILY IV 04/12/25 10:00 04/13/25 09:49 20 MG Ipratropium [place] 0.5 mg Q6HPRN PRN NEB 04/12/25 02:15 04/12/25 23:38 0.5 MG Buspirone HCl 10 mg BID PO 04/12/25 10:00 04/13/25 09:49 10 MG EZETIMIBE 10 mg DAILY PO 04/12/25 10:00 04/13/25 09:50 10 MG Pregabalin 75 mg BID PO 04/12/25 10:00 04/13/25 09:49 75 MG Azithromycin 250 ml @ 125 mls/hr DAILY IV 04/12/25 10:00 04/13/25 09:49 125 MLS/HR Examination General Appearance: Cooperative. Well developed. Well nourished. NAD Head Exam: Normal inspection Neck Exam: Normal inspection. Non-tender. Normal alignment Respiratory: Bilateral wheezing, Normal air movement, No added sounds Cardiovascular/Chest: Regular rate and rhythm. No murmurs. No JVD. Peripheral Pulses: 2+ Radial (R). 2+ Radial (L). 2+ Pedal (R). 2+ Pedal (L) Abdominal Exam: Normal bowel sounds. Soft. normal abdomen, no visible veins, Nontender. No hepatospenomegaly. No masses Ankle Exam: Negative ankle edema Lower Extremities: Right Deep laceration below knee, orthopedic brace placed Neuro/Mental Status: A&O x4. Coherent. Thoughts/Psych: Normal thought pattern. Appropriate mood and affect. Good judgement and insight Skin Exam: Normal inspection. Normal color. Warm. Dry laboratory and microbiology Laboratory Tests 04/13/25 06:08 Test 04/13/25 06:08 Range/Units Serum Glucose 112 H 74-106 mg/dL Labs and/or images reviewed: Labs reviewed by me, Image(s) reviewed by me Problem List/Assessment/Plan Problem List/Assessment/Plan #Lateral Meniscus Tear #Old Shanel-Schlatter Disease Sequelae #Patellar Tendinitis #Patellofemoral Osteoarthritis #Medial Meniscus Degeneration #Bakers Cyst #Ruled out right patellar fracture on MRI #Intractable knee pain due to above Knee MRI: Tear of the anterior horn of the lateral meniscus. Mild bone marrow edema in the foci of ossification adjacent to the tibial tuberosity likely reflecting sequelae of old Shanel-Schlatter disease / repetitive microtrauma. Mild distal patellar tendinitis. Patellofemoral osteoarthritis. Interstitial degeneration of the posterior horn and body of the medial meniscus. Acosta's cyst. Right knee x-ray: Cortical irregularity at the level of the distal patellar tendon insertion as well as superiorly adjacent to the fibular head may represent minimally displaced fracture. There is no evidence of acute dislocation. Soft tissues are unremarkable. Orthopedics consulted: The plan is to continue using a straight leg brace for protection and allow weight-bearing as tolerated with crutches. The patient should follow up in one week for suture removal. At two weeks, if pain improves and the wound is fully healed, the patient will transition out of the straight leg brace and begin gentle range of motion physical therapy. Ice and elevation should be used as needed. Weight-bearing should continue as tolerated unless pain indicates otherwise. Neurovascular status remains intact. pain management with [place] injection Toradol once Zofran 4 MG IV q4h Sodium chloride lock 10 ML IV q8h buspirone 10 MG PO bid Discharge planning underway. Consulted [facility] for eventual SNF placement. PT on board #Acute on chronic, diastolic, congestive heart failure (HFpEF, EF 65%) #Acute on chronic hypoxic respiratory failure #COPD exacerbation #Pneumonia likely due to Gram-positive or Gram-negative organism Echocardiogram (10/02/24): lvef 65% by visual estimate, normal rv function, left atrium enlarged moderate, no severe valve abnormalities noted Chest X-ray: Borderline cardiomegaly with pulmonary venous congestion and probable trace bilateral pleural effusions Azithromycin 240 daily IV breathing treatments albuterol and ipratropium med nebs BiPAP Methylprednisone 40 MG IV Jardiance 10 MG PO daily Lasix 20 Mg PO daily #Active smoker Smoking cessation Nicotine patch Ob did not work for the patient, patient is willing to quit Consider Varenicline I have counseled the patient on the importance of smoking cessation for over 5 minutes. #Peripheral neuropathy Pregabalin 75 MG PO bid #Mixed dyslipidemia Ezetimibe 10 MG PO daily Diet: Cardiac DVT prophylaxis: Lovenox 40mg Goals of care: Full code, discussed for >30 minutes Plan discussed with patient Plan discussed with Dr. Tracy Plan discussed with: Patient, Daughter, Other (Nurses) Date of Service: Apr 13, 2025 Billing Provider: GORDO TRACY MD Common Visit Codes: [id number] INP/OBS CARE(HIGH) ADOLFO ABREU RESIDENT Apr 13, 2025 15:41 KRIS LEON RESIDENT Apr 13, 2025 19:55
[2025-04-13] MEDS: methylPREDNISolone SOD SUCC 40 MG/ML VL IV ONE (16:51)
[2025-04-14] VITALS (10 sets, daily range): BP systolic 129–151; BP diastolic 63–82; PULSE 72–95; RESP 16–20; TEMP 98–98.6; O2SAT 94–96
[2025-04-14 07:09] LABS: Anion Gap 5 (5-15); Calcium 9.8 mg/dL (8.7-10.4); Chloride 103 mmol/L (98-107); Potassium 3.6 mmol/L (3.5-5.1); Sodium 141 mmol/L (136-145)
[2025-04-14 07:15] LABS: BUN/Creatinine Ratio 19.4 (10.0-20.0); Blood Urea Nitrogen 12 mg/dL (9-23)
[2025-04-14 07:19] LABS: Carbon Dioxide 33 mmol/L (20-31); Glucose 130 mg/dL (74-106)
[2025-04-14 08:27] LABS: Hematocrit 35.9 % (36.0-46.0); Hemoglobin 11.6 g/dL (12.2-16.2); Mean Corpuscular Hemoglobin 27.8 pg (28.0-32.0); Mean Corpuscular Volume 86.0 fL (80.0-100.0); Nucleated Red Blood Cells % 0.0 %
[2025-04-14] MEDS: methylPREDNISolone SOD SUCC 40 MG/ML VL IV SCH (09:05)
[2025-04-14] MEDS: EMPAGLIFLOZIN 10 MG TAB PO SCH (09:08)
[2025-04-14] MEDS: FUROSEMIDE 20 MG TAB PO SCH (09:09)
--- NOTE | 2025-04-14 13:37 | DVHPNRES ---
Progress Note Date Seen: Apr 14, 2025 Resident Creating Document: ADOLFO ABREU Medical Necessity Reason Pt with a Central, PICC or Fol: No Subjective Review of Systems Patient is a 64-year-old female with a past medical history of fibromyalgia, COPD/emphysema, IBS, HLD, who presented to ED following a fall three days ago on sharp concrete, resulting in a deep laceration below the right knee. The patient reports that three days ago she sustained a mechanical fall with no loss of consciousness on concrete while ambulating with her walker. The walker wheels got stuck on the street, causing her knee to hit the ground, followed by her hands, and finally her face. She was transported by ambulance to [facility] ED, where the lacerations were sutured. ED staff recommended urgent follow-up with an orthopedic surgeon. The patients daughter states that the patient cannot care for herself at home, has difficulty walking, and may require placement back at [facility]. The patient also reports severe chronic neuropathy in her hands and feet, with numbness and tingling. On 04/13/25, Patient was seen and examined at bedside. Overnight events were reviewed. Today on evaluation, the patient reports right knee pain localized around the proximal tibia, 7/10 intensity. Patient was evaluated by Orthopedic doctor today. On 04/14/25, No new complaints reported by patient today. Patient is medically stable and accepted for transfer to [facility] for continued physical therapy sessions. Transport has been arranged for 10:00 AM. Past surgical history: None Smokin pack year, no alcohol or drugs Allergies: None Home medications: Ezetimibe, pregabalin PCP: Dr. Wheeler Eyes: No Pain, No Vision change, No Conjunctivae inflammation, No Eyelid inflammation, No Other, No Redness ENT: No Ear pain, No Ear discharge, No Nose pain, No Nose discharge, No Nose congestion, No Mouth pain, No Mouth swelling, No Throat pain, No Throat swelling, No Other Cardiovascular: No Chest Pain, No Palpitations, No Orthopnea, No Paroxysmal No Dyspnea, No Edema, No Lt Headedness, No Other Respiratory: Cough, No Dry, Shortness of breath, SOB with exertion, Wheezing, No Hemoptysis, No Pleuritic Pain, No Sputum, No Other Gastrointestinal: No Nausea, No Vomiting, No Abdominal Pain, No Diarrhea, No Constipation, No Melena, No Hematochezia, No Other Genitourinary: No Dysuria, No Frequency, No Incontinence, No Hematuria, No Retention, No Other Musculoskeletal: No other, No neck pain, No shoulder pain, No arm pain, No back pain, No hand pain, knee pain, leg pain, No foot pain Skin: No Rash, No Lesions, No Jaundice, No Bruising, No Other Objective vital signs Vital Sign Date Time Temp Pulse Resp B/P (MAP) Pulse Ox O2 Delivery O2 Flow Rate FiO2 04/14/25 10:00 96 Nasal Cannula 2.0 04/14/25 10:00 28 04/14/25 09:09 102/66 04/14/25 09:00 98.0 83 20 98.0 Total Intake and Output 04/13/25 04/13/25 04/14/25 15:00 23:00 07:00 Intake Total 250 ml 850 ml 200 ml Balance 250 ml 850 ml 200 ml medications Current Medications Medications Dose Ordered Sig/Davey Route Start Time Stop Time Status Last Admin Dose Admin Sodium Chloride 10 ml Q8HR IV 04/12/25 06:00 04/14/25 13:25 10 ML Acetaminophen/ Hydrocodone Bitart 1 tab Q4HP PRN PO 04/12/25 01:45 04/14/25 13:26 1 TAB Ondansetron HCl 4 mg Q4HP PRN IV 04/12/25 01:45 Enoxaparin Sodium 40 mg DAILY SC 04/12/25 10:00 04/14/25 09:08 40 MG Albuterol 2.5 mg Q6HPRN PRN NEB 04/12/25 01:45 04/12/25 23:38 2.5 MG Ipratropium [place] 0.5 mg Q6HPRN PRN NEB 04/12/25 02:15 04/12/25 23:38 0.5 MG Buspirone HCl 10 mg BID PO 04/12/25 10:00 04/14/25 09:09 10 MG EZETIMIBE 10 mg DAILY PO 04/12/25 10:00 04/14/25 09:08 10 MG Pregabalin 75 mg BID PO 04/12/25 10:00 04/14/25 09:08 75 MG Azithromycin 250 ml @ 125 mls/hr DAILY IV 04/12/25 10:00 04/14/25 09:07 125 MLS/HR Methylprednisolone Sodium Succinate 40 mg DAILY IV 04/14/25 10:00 04/14/25 09:05 40 MG Furosemide 20 mg DAILY PO 04/14/25 10:00 04/14/25 09:09 20 MG Empaglifozin 10 mg DAILY PO 04/14/25 10:00 04/14/25 09:08 10 MG Examination General Appearance: Cooperative. Well developed. Well nourished. NAD Head Exam: Normal inspection Neck Exam: Normal inspection. Non-tender. Normal alignment Respiratory: Bilateral wheezing, Normal air movement, No added sounds Cardiovascular/Chest: Regular rate and rhythm. No murmurs. No JVD. Peripheral Pulses: 2+ Radial (R). 2+ Radial (L). 2+ Pedal (R). 2+ Pedal (L) Abdominal Exam: Normal bowel sounds. Soft. normal abdomen, no visible veins, Nontender. No hepatospenomegaly. No masses Ankle Exam: Negative ankle edema Lower Extremities: Right Deep laceration below knee, orthopedic brace placed Neuro/Mental Status: A&O x4. Coherent. Thoughts/Psych: Normal thought pattern. Appropriate mood and affect. Good judgement and insight Skin Exam: Normal inspection. Normal color. Warm. Dry laboratory and microbiology Laboratory Tests 04/14/25 05:47 Test 04/14/25 05:47 Range/Units Serum Glucose 130 H 74-106 mg/dL Labs and/or images reviewed: Labs reviewed by me, Image(s) reviewed by me Problem List/Assessment/Plan Problem List/Assessment/Plan #Lateral Meniscus Tear #Old Shanel-Schlatter Disease Sequelae #Patellar Tendinitis #Patellofemoral Osteoarthritis #Medial Meniscus Degeneration #Bakers Cyst #Ruled out right patellar fracture #Intractable knee pain due to above Knee MRI: Tear of the anterior horn of the lateral meniscus. Mild bone marrow edema in the foci of ossification adjacent to the tibial tuberosity likely reflecting sequelae of old Bellamy-Schlatter disease / repetitive microtrauma. Mild distal patellar tendinitis. Patellofemoral osteoarthritis. Interstitial degeneration of the posterior horn and body of the medial meniscus. Acosta's cyst. Right knee x-ray: Cortical irregularity at the level of the distal patellar tendon insertion as well as superiorly adjacent to the fibular head may represent minimally displaced fracture. There is no evidence of acute dislocation. Soft tissues are unremarkable. Orthopedics consulted: The plan is to continue using a straight leg brace for protection and allow weight-bearing as tolerated with crutches. The patient should follow up in one week for suture removal. At two weeks, if pain improves and the wound is fully healed, the patient will transition out of the straight leg brace and begin gentle range of motion physical therapy. Ice and elevation should be used as needed. Weight-bearing should continue as tolerated unless pain indicates otherwise. Neurovascular status remains intact. pain management with [place] injection Toradol once Zofran 4 MG IV q4h Sodium chloride lock 10 ML IV q8h buspirone 10 MG PO bid #Acute on chronic, diastolic, congestive heart failure (HFpEF, EF 65%) #Acute on chronic hypoxic respiratory failure #COPD exacerbation #Pneumonia likely due to Gram-positive or Gram-negative organism Echocardiogram (10/02/24): lvef 65% by visual estimate, normal rv function, left atrium enlarged moderate, no severe valve abnormalities noted Chest X-ray: Borderline cardiomegaly with pulmonary venous congestion and probable trace bilateral pleural effusions Azithromycin 240 daily IV breathing treatments albuterol and ipratropium med nebs BiPAP Methylprednisone 40 MG IV Jardiance 10 MG PO daily Lasix 20 Mg PO daily #Active smoker Smoking cessation Nicotine patch Ob did not work for the patient, patient is willing to quit Consider Varenicline I have counseled the patient on the importance of smoking cessation for over 5 minutes. #Peripheral neuropathy Pregabalin 75 MG PO bid #Mixed dyslipidemia Ezetimibe 10 MG PO daily Diet: Cardiac DVT prophylaxis: Lovenox 40mg Goals of care: Full code Plan discussed with patient Plan discussed with Dr. Tracy Plan discussed with: Patient, Daughter, Other (RN) My Orders My Orders Orders - ADOLFO ABREU Procedure Category Date Status Time Complete Blood Count LAB 04/15/25 Verified 04:00 Basic Metabolic Panel LAB 04/15/25 Verified 04:00 Visit Coding STANDARD RES Billing Provider: GORDO TRACY MD Date of Service if different f: Apr 14, 2025 Common Visit Codes: [id number] INP/OBS CARE(HIGH) ADOLFO ABREU Apr 14, 2025 13:37
[2025-04-15 01:00] VITALS: BP 135/72; PULSE 80; RESP 18; TEMP 98.1; O2SAT 95
[2025-04-15 05:00] VITALS: BP 148/79; PULSE 87; RESP 18; TEMP 98.4; O2SAT 98
[2025-04-15 06:58] LABS: Hematocrit 38.5 % (36.0-46.0); Hemoglobin 12.7 g/dL (12.2-16.2); Mean Corpuscular Hemoglobin 28.2 pg (28.0-32.0); Mean Corpuscular Volume 85.4 fL (80.0-100.0); Nucleated Red Blood Cells % 0.0 %
[2025-04-15 07:08] LABS: Anion Gap 7 (5-15); Chloride 102 mmol/L (98-107); Sodium 143 mmol/L (136-145)
[2025-04-15 07:09] LABS: Calcium 10.0 mg/dL (8.7-10.4)
[2025-04-15 07:14] LABS: BUN/Creatinine Ratio 26.0 (10.0-20.0); Blood Urea Nitrogen 19 mg/dL (9-23)
[2025-04-15 07:25] LABS: Carbon Dioxide 34 mmol/L (20-31); Glucose 107 mg/dL (74-106); Potassium 3.2 mmol/L (3.5-5.1)
[2025-04-15 08:00] VITALS: PULSE 54; RESP 16; O2SAT 96
[2025-04-15] MEDS ORDERED: EMPA1TAB PO (08:25)
[2025-04-15] MEDS ORDERED: AZIT-43 PO (08:25)
[2025-04-15] MEDS ORDERED: PRED1PAK7 PO (08:25)
[2025-04-15] MEDS ORDERED: FURO20TA4 PO (08:25)
[2025-04-15] MEDS ORDERED: ALB5IS NEB (08:25)
[2025-04-15 09:00] VITALS: BP 139/61; PULSE 54; RESP 16; TEMP 97.8; O2SAT 96
[2025-04-15 09:34] VITALS: BP 139/61; PULSE 80; RESP 16; O2SAT 96
[2025-04-15] MEDS: POTASSIUM EFFERVESENT TAB 25 MEQ PO ONE (09:38)
--- NOTE | 2025-04-15 18:20 | DVHDSRES ---
Discharge Summary Date of Admission Resident Creating Document: ADOLFO ABREU RESIDENT Apr 12, 2025 at 01:39 Date of Discharge: Apr 15, 2025 Admitting Diagnosis Deep laceration below the right knee Labs/Diagnostic Data: Laboratory Results Test 04/15/25 06:30 04/13/25 06:08 04/12/25 07:30 04/12/25 00:42 White Blood Count 7.1 10^3/uL (4.4-10.8) Red Blood Count 4.51 10^6/uL (4.0-5.20) Hemoglobin 12.7 g/dL (12.2-16.2) Hematocrit 38.5 % (36.0-46.0) Mean Corpuscular Volume 85.4 fL (80.0-100.0) Mean Corpuscular Hemoglobin 28.2 pg (28.0-32.0) Mean Corpuscular Hemoglobin Concent 33.0 g/dL (32.0-36.0) Red Cell Distribution Width 16.1 % (11.8-14.3) Platelet Count 220 10^3/uL (140-450) Mean Platelet Volume 7.3 fL (6.9-10.8) Neutrophils (%) (Auto) 61.4 % (37.0-80.0) Lymphocytes (%) (Auto) 25.8 % (10.0-50.0) Monocytes (%) (Auto) 12.0 % (0.0-12.0) Eosinophils (%) (Auto) 0.4 % (0.0-7.0) Basophils (%) (Auto) 0.4 % (0.0-2.0) Neutrophils # (Auto) 4.3 10 ^3/uL (1.6-8.6) Lymphocytes # (Auto) 1.8 10 ^3/uL (0.4-5.4) Monocytes # (Auto) 0.8 10 ^3/uL (0-1.3) Eosinophils # (Auto) 0 10 ^3/uL (0-0.8) Basophils # (Auto) 0 10 ^3/uL (0-0.2) Nucleated Red Blood Cells 0.0 % Sodium Level 143 mmol/L (136-145) Potassium Level 3.2 mmol/L (3.5-5.1) Chloride Level 102 mmol/L (98-107) Carbon Dioxide Level 34 mmol/L (20-31) Anion Gap 7 (5-15) Blood Urea Nitrogen 19 mg/dL (9-23) Creatinine 0.73 mg/dL (0.550-1.02) Glomerular Filtration Rate Calc 91 mL/min (>90) BUN/Creatinine Ratio 26.0 (10.0-20.0) Serum Glucose 107 mg/dL (74-106) Calcium Level 10.0 mg/dL (8.7-10.4) Total Bilirubin 0.4 mg/dL (0.2-1.0) Aspartate Amino Transferase (AST) 27 U/L (13-40) Alanine Aminotransferase (ALT) 20 U/L (7-40) Alkaline Phosphatase 104 U/L (46-116) Total Protein 6.3 g/dL (5.7-8.2) Albumin 4.0 g/dL (3.2-4.8) Urine Color Light-yellow (Yellow) Urine Clarity Clear (Clear) Urine pH 6.0 (5.0-9.0) Urine Specific [place] 1.011 (1.001-1.035) Urine Protein Negative (Negative) Urine Ketones Negative (Negative) Urine Blood Negative /uL (Negative) Urine Nitrite Negative (Negative) Urine Bilirubin Negative (Negative) Urine Urobilinogen Normal mg/dL (Negative) Urine Leukocyte Esterase Negative /uL (Negative) Urine RBC <1 /hpf (0 - 4) Urine Microscopic WBC 1 /HPF (0-5) Urine Squamous Epithelial Cells Few /hpf (<5) Urine Bacteria None seen /hpf (None Seen) Urine Glucose Normal mg/dL (Normal) Prothrombin Time 10.0 sec (9.3-11.8) Prothrombin Time INR 0.94 (0.9-1.15) Activated Partial Thromboplast Time 24.6 SEC (24.5-34.5) B-Type Natriuretic Peptide 88.57 pg/mL (0-100) Other Laboratory Tests 04/15/25 06:30 Brief Hx & Hospital Course: The patient is a 64-year-old female with a past medical history of fibromyalgia, COPD/emphysema, irritable bowel syndrome, and hyperlipidemia who presented to [facility] Emergency Department following a fall three days ago on sharp concrete, resulting in a deep laceration below the right knee. The patient reported that she sustained a mechanical fall without loss of consciousness while ambulating with her walker when the wheels got stuck on the street, causing her knee to hit the ground, followed by her hands and face. She was initially transported by ambulance to [facility] Emergency Department, where the lacerations were sutured, and she was advised to follow up urgently with an orthopedic surgeon. The patients daughter reported that the patient cannot care for herself at home, has difficulty walking, and may require placement back at [facility]. The patient also reported severe chronic neuropathy in her hands and feet with numbness and tingling. Hospital course Imaging studies included a right knee MRI, which revealed a tear of the anterior horn of the lateral meniscus, mild bone marrow edema adjacent to the tibial tuberosity likely reflecting sequelae of old Shanel-Schlatter disease or repetitive microtrauma, mild distal patellar tendinitis, patellofemoral osteoarthritis, interstitial degeneration of the posterior horn and body of the medial meniscus, and a Bakers cyst. A right knee X-ray showed cortical irregularity at the distal patellar tendon insertion and adjacent to the fibular head, possibly representing a minimally displaced fracture, with no evidence of acute dislocation. On April 13, 2025, the patient was seen and examined at the bedside. Overnight events were reviewed. The patient reported right knee pain localized around the proximal tibia with an intensity of 7 out of 10. Orthopedic consultation was obtained. On April 14, 2025, the patient reported no new complaints and remained medically stable. She was accepted for transfer to [facility] for continued physical therapy, and transport was arranged for 10:00 AM. Orthopedic recommendations included continuing the straight leg brace for protection, allowing weight-bearing as tolerated with crutches, and following up in one week for suture removal. At two weeks, if pain improves and the wound is fully healed, the patient will transition out of the brace and begin gentle [id number] physical therapy. Ice and elevation were advised as needed. The patient was treated for intractable knee pain with Given and a single Toradol injection. Additional medications included Zofran for nausea, buspirone for anxiety, and sodium chloride IV lock maintenance. Discharge planning included follow-up with her primary care physician, orthopedics, and pulmonology. coordinator of library services were consulted for reassessment and discharge planning to a care home facility for physical therapy sessions. The patient was accepted to [facility] under Dr. Vidales in room 51A. The facility was contacted at [phone], and transport was arranged for 10:00 AM. Examination General Appearance: Cooperative. Well developed. Well nourished. Head Exam: Normal inspection Neck Exam: Normal inspection. Non-tender. Normal alignment Respiratory: Bilateral wheezing, Normal air movement, No added sounds Cardiovascular/Chest: Regular rate and rhythm. No murmurs. No JVD. Peripheral Pulses: 2+ Radial (R). 2+ Radial (L). 2+ Pedal (R). 2+ Pedal (L) Abdominal Exam: Normal bowel sounds. Soft. normal abdomen, no visible veins, Nontender. No hepatospenomegaly. No masses Ankle Exam: Negative ankle edema Lower Extremities: Right Deep laceration below knee, orthopedic brace placed Neuro/Mental Status: A&O x4. Coherent. Thoughts/Psych: Normal thought pattern. Appropriate mood and affect. Good judgement and insight Skin Exam: Normal inspection. Normal color. Warm. Dry Operations or Procedures PATIENT: SAMMY DEUTSCH ACCT: [id number] UNIT: [id number] : 1960 LOC: OVERFLOW ROOM / BED: [address] [place] [address] / A AGE / SEX: 64 / F ADM STATUS: ADM IN SERVICE 1245 ORDERING PHYSICIAN: JENNIFER FREEMAN MD PROCEDURE(s): RKNE - RT KNEE WITH OUT CON REASON: patella tendon injury ORDER NUMBER(s): [id number], ACCESSION NUMBER(s): [id number] CLINICAL INDICATION: Patella tendon injury. TECHNIQUE: Multiplanar, multisequence MRI of the right knee was performed without contrast. Contrast: None. COMPARISON: XY R KNEE 2V XRAY on DOS: 04/12/25. FINDINGS: Joint space and synovium: There is trace knee joint effusion. No synovitis. There is a fluid collection between the semimembranosus and medial head of the gastrocnemius measuring 4 cm in craniocaudal dimension consistent with a Acosta's cyst. Bones and articular cartilage: There is no evidence of acute fracture. Mild bone marrow edema in the foci of ossification adjacent to the tibial tubercle likely reflecting sequelae of [place]-Schlatter disease. The alignment is normal. There is full-thickness articular cartilage loss in the patellar apex in the medial patellar facet with bone marrow edema. The articular cartilage in the medial and lateral compartment is maintained. Menisci: There is interstitial degeneration of the posterior horn and body of the medial meniscus. There is a tear of the anterior horn of the lateral meniscus. There is a horizontal tear of the body to posterior junction. Tendons and ligaments: The tendons in the posterior knee are intact. The quadriceps tendon is intact. There is mild T2 hyperintensity in the distal patellar tendon adjacent to foci of ossification adjacent to the tibial tuberosity. The anterior cruciate ligament is intact. The posterior cruciate ligament is intact. The medial collateral ligament and the lateral collateral ligament stabilizing complex are intact. Muscles: Regional muscles are preserved in bulk and signal characteristics. Other: There is circumferential subcutaneous edema in the knee. IMPRESSION: 1. Tear of the anterior horn of the lateral meniscus. 2. Mild bone marrow edema in the foci of ossification adjacent to the tibial tuberosity likely reflecting sequelae of old Shanel-Schlatter disease / repetitive microtrauma. 3. Mild distal patellar tendinitis. 4. Patellofemoral osteoarthritis. 5. Interstitial degeneration of the posterior horn and body of the medial meniscus. 6. Acosta's cyst. PATIENT: SAMMY DEUTSCH ACCT: [id number] UNIT: [id number] : 1960 LOC: OVERFLOW ROOM / BED: [address] [place] [address] AGE / SEX: 64 / F ADM STATUS: ADM IN SERVICE 0139 ORDERING PHYSICIAN: FABRICIO NGUYEN RESIDENT PROCEDURE(s): RKNE2 - R KNEE 2V XRAY REASON: Deep laceration ORDER NUMBER(s): [id number], ACCESSION NUMBER(s): [id number] CLINICAL INDICATION: Deep laceration TECHNIQUE: XY R KNEE 2V XRAY Comparison: XY L KNEE 3V XRAY on DOS: 10/01/24, XY R KNEE 3V XRAY on DOS: 10/01/24 FINDINGS/IMPRESSION: : Cortical irregularity at the level of the distal patellar tendon insertion as well as superiorly adjacent to the fibular head may represent minimally displaced fracture. There is no evidence of acute dislocation. Soft tissues are unremarkable. PATIENT: SAMMY DEUTSCH ACCT: [id number] UNIT: [id number] : 1960 LOC: ER ROOM / BED: / AGE / SEX: 64 / F ADM STATUS: REG ER SERVICE 002 ORDERING PHYSICIAN: ABBEY ZHANG PROCEDURE(s): CXRP - CHEST PORTABLE REASON: Shortness of breath ORDER NUMBER(s): [id number], ACCESSION NUMBER(s): [id number] CHEST RADIOGRAPH Indication: Shortness of breath Technique: Single frontal view of the chest was obtained COMPARISON: XY CHEST PORTABLE on DOS: 10/01/24, XY CHEST PORTABLE on DOS: 04/04/24, XY CHEST PORTABLE on DOS: 10/01/22 FINDINGS: Cardiac silhouette is borderline in size. Probable trace bilateral pleural effusions with mild bibasilar atelectatic changes. Minimal prominence of the pulmonary vasculature. Bones and soft tissues demonstrate no significant abnormality. IMPRESSION: Borderline cardiomegaly with pulmonary venous congestion and probable trace bilateral pleural effusions Condition at Discharge: Stable Final Diagnosis/Problems List Acute on chronic respiratory failure and meniscal tear post mechanical fall Discharge Disposition: [facility] Facility Discharge Instruct/Medications Diet: Cardiac 2g Na,low cholest Activity: No Restrictions, As Tolerated Follow Up/Referral: PCP Orthopedics Pulmonology Medications: Per EMR Scheduled Amitriptyline HCl (Amitriptyline Hydrochlori), 1 TAB PO DAILY, (Reported) Atorvastatin Calcium (Atorvastatin Calcium), 1 TAB PO DAILY, (Reported) Azithromycin (Azithromycin), 250 MG PO DAILY Buspirone HCl (Buspirone HCl), 1 TAB PO BID, (Reported) Duloxetine HCl (Duloxetine HCl), 1 CAP PO DAILY, (Reported) Empagliflozin (Jardiance), 10 MG PO DAILY Ezetimibe (Ezetimibe), 1 TAB PO DAILY, (Reported) Furosemide (Furosemide), 20 MG PO DAILY Prednisone (Prednisone), 5 MG PO DAILY Pregabalin (Pregabalin), 1 CAP PO BID, (Reported) Upadacitinib (Rinvoq), 1 TAB PO DAILY, (Reported) Scheduled PRN Albuterol Sulfate (Ventolin), 2.5 MG NEB Q6HPRN PRN Miscellaneous Medications Oxycodone W/ Acetaminophen (Percocet 5/325MG), 1 TAB PO, (Reported) Discharge Statement: "Patient was advised to return to the ER or call 911 if any headaches, dizziness, shortness of breath, chest pain, abdominal pain, bleeding, fevers, or worsening of medical condition. Patient was counseled about treatment plan, medications, possible side effects, patientverbalized understanding. All questions were answered to the best of my ability. This discharge took greater then 30 minutes in planning, reviewing documentation, counseling the patient, and discussing with other team members." ASSESSMENT ASSESSMENT Assessment Acute on chronic respiratory failure and meniscal tear post mechanical fall Visit Coding STANDARD RES Billing Provider: GORDO PINEDA MD Date of Service if different f: Apr 15, 2025 Common Visit Codes: 99032-OMU/OBS DISCH DAY >30min ADOLFO ABREU RESIDENT Apr 15, 2025 18:20
== END 2025-04-15 11:25 | DRG 562 ==
LOC: ER 21:05 → OVERFLOW 04-12 01:39 → WEST WING 04-12 21:40
PROVIDERS: ADMIT Internal Medicine Geriatric Medicine; ATTEND Internal Medicine Geriatric Medicine
DX: S83.241A Other tear of medial meniscus, current injury, right knee, initial encounter (principal); I50.33 Acute on chronic diastolic (congestive) heart failure; J15.69 Pneumonia due to other Gram-negative bacteria; J96.21 Acute and chronic respiratory failure with hypoxia; J15.9 Unspecified bacterial pneumonia; J90 Pleural effusion, not elsewhere classified; J44.1 Chronic obstructive pulmonary disease with (acute) exacerbation; E66.01 Morbid (severe) obesity due to excess calories; Z68.41 Body mass index [BMI] 40.0-44.9, adult; M23.311 Other meniscus derangements, anterior horn of medial meniscus, right knee; Z87.891 Personal history of nicotine dependence; G62.9 Polyneuropathy, unspecified; E78.2 Mixed hyperlipidemia; M92.521 Juvenile osteochondrosis of tibia tubercle, right leg; M71.21 Synovial cyst of popliteal space [Baker], right knee; M17.11 Unilateral primary osteoarthritis, right knee; W01.0XXA Fall on same level from slipping, tripping and stumbling without subsequent striking against object, initial encounter; Y93.89 Activity, other specified; Y92.89 Other specified places as the place of occurrence of the external cause; Y99.8 Other external cause status
CPT/HCPCS: 36415; 71045; 73560; 73721; 80048; 80053; 81001; 83880; 85025; 85610; 85730; 94640; 97116; 97163; 97530; G0378; J1885